=== PATIENT | male | born 1995 | race Two or more races ===

== ENCOUNTER → 2020-10-29 13:25 | Outpatient (BNVA) | payer MEDICAID, SELFPAY | PROVIDERS: PCP Family Medicine; Visit Provider Hospitalist ==

== ENCOUNTER 2020-10-29 14:07 | Outpatient (REF) | payer MEDICAID, SELFPAY ==
--- NOTE | 2020-10-29 17:09 | PFT_ITS ---
INDICATION: Dyspnea. SPIROMETRY: The FEV1 to FVC 89% with an FEV1 of 4.14 L, which is 80% predicted and an FVC of 4.67 L, which is 76% predicted. No significant response to bronchodilators noted. Maximum voluntary ventilation 92% predicted. LUNG VOLUMES: Total lung capacity 90% predicted with an expiratory reserve volume of 62% predicted. DIFFUSION CAPACITY: DLCO 85% predicted. COMPARISONS: None. INTERPRETATION: No obstructive nor restrictive ventilatory defects identified. No significant response to bronchodilators noted. Normal diffusion capacity. Clinical correlation warranted. Robin Holland MD MR/MODL / [id number]
== END 2020-10-29 14:08 | disposition home or self-care (01) ==
LOC: HO.RESP 14:07
PROVIDERS: Visit Provider Hospitalist
DX: R06.00 Dyspnea, unspecified (principal)
CPT/HCPCS: 94060; 94727; 94729; 99202

== ENCOUNTER 2020-12-02 14:23 | Outpatient (REF) | payer MEDICAID, SELFPAY ==
--- NOTE | ~2020-12-02 | XR_ITS ---
EXAMINATION: XR CHEST CLINICAL INFORMATION: Dyspnea COMPARISON: 04/10/2019 TECHNIQUE: 2 views of the chest were obtained. FINDINGS: The lungs are well expanded. There is no focal consolidation, edema, or effusion. No pneumothorax. The cardiomediastinal silhouette is within normal limits. No acute osseous abnormality. XR/XR chest 2V IMPRESSION: Clear lungs.
[2020-12-02 16:02] LABS: MANUAL DIFF FLAG NO
[2020-12-02 16:08] LABS: Basophils Absolute Auto 0.1 X10*3/uL (0.0-0.2); Basophils Percent Auto 1.1 % (0-2); Eosinophils Absolute Auto 0.2 X10*3/uL (0.0-0.4); Eosinophils Percent Auto 3.5 % (0-4); Hematocrit 43.7 % (42-52); Hemoglobin 15.3 g/dl (14.0-18.0); Imm Gran Abs Auto 0.01 X10*3/uL (0.00-0.03); Imm Gran Pct Auto 0.2 % (0.0-0.4); Lymphocytes Absolute Auto 1.8 X10*3/uL (1.2-4.9); Lymphocytes Percent Auto 27.7 % (20-40); Mean Corpuscular Hemoglobin 28.8 pg (27.0-33.0); Mean Corpuscular Volume 82.1 fL (80-98); Mean Platelet Volume 10.3 fL (9.4-12.4); Monocytes Absolute Auto 0.8 X10*3/uL (0.1-1.2); Monocytes Percent Auto 11.5 % (2-11); Neutrophils Absolute Auto 3.7 X10*3/uL (2.0-8.3); Platelet Count 282 X10*3/uL (160-400); Red Blood Count 5.32 X10*6/uL (4.60-5.80); Red Cell Distribution Width 13.5 % (11.0-16.0); White Blood Count 6.5 X10*3/uL (4.8-10.8)
[2020-12-02 16:20] LABS: D Dimer < 200 NG/ML
[2020-12-02 16:22] LABS: Anion Gap 11 (12-20); Blood Urea Nitrogen 15 mg/dL (9-16); Calcium 9.2 mg/dL (8.4-10.2); Carbon Dioxide 33 mmol/L (22-29); Chloride 97 mmol/L (96-108); Estimated Glomerular Filt Rate > 60; Glucose Random 98 mg/dL (60-115); Sodium 137 mmol/L (135-145)
[2020-12-02 17:16] LABS: Erythrocyte Sedimentation Rate 2 MM/HR (0-15)
== END 2020-12-02 14:24 | disposition home or self-care (01) ==
LOC: HO.LAB 14:23
PROVIDERS: PCP Family Medicine; Visit Provider Hospitalist
DX: J43.9 Emphysema, unspecified (principal); R00.0 Tachycardia, unspecified; K21.00 Gastro-esophageal reflux disease with esophagitis, without bleeding; F32.9 Major depressive disorder, single episode, unspecified; I27.20 Pulmonary hypertension, unspecified; Z79.899 Other long term (current) drug therapy
CPT/HCPCS: 36415; 71046; 80048; 85025; 85379; 85652; 99212

== ENCOUNTER → 2021-01-17 15:31 | Outpatient (BNVA) | payer MEDICAID, SELFPAY | PROVIDERS: PCP Family Medicine; Visit Provider Hospitalist | DX: R06.00 Dyspnea, unspecified (principal); J43.9 Emphysema, unspecified; J93.12 Secondary spontaneous pneumothorax; K21.00 Gastro-esophageal reflux disease with esophagitis, without bleeding; R00.0 Tachycardia, unspecified | CPT/HCPCS: 99212 ==

== ENCOUNTER 2021-02-17 13:08 | Outpatient (REF) | payer MEDICAID, SELFPAY ==
--- NOTE | ~2021-02-17 | CT_ITS ---
EXAMINATION: CT CHEST WITHOUT CONTRAST CLINICAL INFORMATION: Emphysema. COMPARISON: Chest x-ray 12/02/2020 TECHNIQUE: Multidetector volumetric CT imaging of the chest was done. Axial MIP volume rendering provided. Sagittal and coronal reformatted images were obtained. This CT examination was performed using dose optimization techniques as appropriate, variously including the following: *Automated exposure control *Adjustment of mA and/or kV according to patient size (this includes techniques or standardized protocols for targeted exams where dose is matched to indication/reason for exam; i.e. extremities or head) *Use of iterative reconstruction technique DLP: 168 mGy-cm FINDINGS: WEIGHT GUESSER: Hyperinflated lungs. LUNGS: There is mild centrilobular emphysema. There is no acute mass, pulmonary nodule or consolidation. There is no bronchiectasis or interstitial thickening. MEDIASTINUM: The thyroid lobes are symmetrical and normal. The central trachea and the bronchi are widely patent. PLEURA: There is no pleural effusion. No pleural mass or thickening. AXILLA: Small shotty lymph nodes seen in bilateral axilla with largest right axillary lymph node measuring 9 mm. UPPER ABDOMEN: Visualized liver, spleen, pancreas and bilateral adrenal glands are unremarkable. The gallbladder is contracted. OSSEOUS STRUCTURES: There is no lytic or sclerotic process. CT/CT chest wo con IMPRESSION: Mild centrilobular emphysema. Otherwise no acute cardiopulmonary process seen.
== END 2021-02-17 13:09 | disposition home or self-care (01) ==
LOC: HO.CT 13:08
PROVIDERS: PCP Family Medicine; Visit Provider Hospitalist
DX: J43.9 Emphysema, unspecified (principal); J93.9 Pneumothorax, unspecified; R06.00 Dyspnea, unspecified
CPT/HCPCS: 71250

== ENCOUNTER → 2021-03-07 07:14 | Outpatient (REF) | payer MEDICAID, SELFPAY ==
--- NOTE | 2021-03-07 07:20 | CA_ITS ---
Transthoracic Echocardiogram Patient (Last, First, Middle): Syed Nguyen L Gender: Male Date of : 1995 Age: 25 Procedure Date: 03/07/2021 Procedure Type: Transthoracic Echocardiogram Location: OP Height: 185.42 cm Weight: 74.84 kg BSA: 1.98 m2 Heart Rate: bpm BP: 100 / 44 mmHg Timber Hewer: Referring MD: Robin Holland MD Symptoms: PULMONARY HYPERTENSION, UNSPECIFIED Study Quality: Fair ECG Rhythm: Sinus Conclusions: - The left ventricular systolic function is normal. The calculated ejection fraction is 57% by biplane method. - No obvious valvular pathology seen on this study. - The pulmonary artery systolic pressure is normal. Findings Left Ventricle Normal left ventricular cavity size. There is normal left ventricular wall thickness. The left ventricular systolic function is normal. The calculated ejection fraction is 57% by biplane method. There is no evidence of regional wall motion abnormalities. Diastolic function is normal for age. Right Ventricle Normal right ventricular cavity size and systolic function. Atria Both atria are normal in size. Aortic Valve There is a normal trileaflet aortic valve. There is no aortic valve stenosis. There is trace (trivial) aortic valve regurgitation. Mitral Valve The mitral valve appears normal. There is no mitral valve regurgitation. There is no mitral valve stenosis. Pulmonic Valve The pulmonic valve was not well visualized. There is trace pulmonic valve regurgitation. Tricuspid Valve Normal tricuspid valve structure. There is trace tricuspid valve regurgitation. The pulmonary artery systolic pressure is normal. Great Vessels The aortic annulus, sinuses of valsalva, asc aorta, and aortic arch are normal in size. Venous The inferior vena cava is normal in size and collapses greater than 50% with inspiration. Pericardium/Pleural There is no evidence of pericardial effusion. Prior Study Comparison No prior study available for comparison. Recommendations, Care & Conclusions No obvious valvular pathology seen on this study. Measurements 2D Linear Measurements RVIDd: 2.29 RVIDd Index: 1.16 IVSd: 1.01 0.6-0.9/0.6-1.0 cm LVIDd: 4.40 3.9-5.3/4.2-5.9 cm LVIDd Index: 2.22 2.4-3.2/2.2-3.1 cm/m2 LVIDs: 2.89 2.0-3.6 cm LVPWd: 1.18 0.7-1.1 cm Ao Root: 2.80 2.1-3.5 cm LA Diam: 2.90 2.7-3.8/3.0-4.0 cm LAIDs Index: 1.46 1.5-2.3 cm/m2 LV Mass: 209.05 67-162/88-224 g LV Mass Index: 105.58 43-95/49-115 g/m2 LVOT Diam: 2.10 3.0+(-)1.3 cm 2D Systolic Function EF 4C: 51.20 >55% EF 2C: 67.70 >55% EF BiP: 57.20 >55% Mitral Valve MV Pk E: 0.51 MV PK A: 0.33 MV Decel Time: 282.00 E/A: 1.50 E'Lateral: 11.30 E'Medial: 9.46 E/E' Med: 5.40 E/E' Lat: 4.50 Aortic Valve AoV Pk Marvin: 1.22 AoV Mn Marvin: 0.95 AoV VTI: 0.24 AoV Pk Grad: 6.00 Aov Mn Grad: 4.00 DILSHAD Cont.VTI: 2.99 LVOT LVOT Pk Marvin: 0.96 LVOT Mn Marvin: 0.68 LVOT VTI: 0.21 LVOT Pk Grad: 4.00 LVOT Mn Grad: 2.00 LVOT Diam: 2.10 LVOT Area: 3.46 Diastolic Function MV Pk E: 0.51 MV Pk A: 0.33 E/A: 1.50 E'Medial: 9.46 E/E' Med: 5.40 E' Laterial: 11.30 E/E' Lat: 4.50 Tricuspid Valve TR Pk Marvin: 1.64 TR Pk Grad: 11.00 RA Press: 3.00 RVSP: 14.00 Great Vessels Aorta Ao Root-2D: 2.80 2.0-3.7 cm Ao Asc: 2.40 2.1-3.4 cm Ao Arch: 2.40 Updated in Other Vendor System with Status of Final Pineda Colindres MD electronically signed on 03/08/2021 1:47:13 PM with status of Final
== END ==
LOC: HO.CARD 07:14
PROVIDERS: Visit Provider Hospitalist
DX: I27.20 Pulmonary hypertension, unspecified (principal)
CPT/HCPCS: 93306

== ENCOUNTER → 2021-03-10 15:13 | Outpatient (BNVA) | payer MEDICAID, SELFPAY | PROVIDERS: PCP Family Medicine; Visit Provider Hospitalist | DX: J93.12 Secondary spontaneous pneumothorax (principal); K21.00 Gastro-esophageal reflux disease with esophagitis, without bleeding; R00.0 Tachycardia, unspecified; R91.1 Solitary pulmonary nodule; R06.00 Dyspnea, unspecified | CPT/HCPCS: 99212 ==

== ENCOUNTER → 2021-04-24 10:51 | Outpatient (BNVA) | payer MEDICAID, SELFPAY | PROVIDERS: PCP Family Medicine; Visit Provider Internal Medicine | DX: R06.02 Shortness of breath (principal); R07.9 Chest pain, unspecified | CPT/HCPCS: 93005; 99202 ==

== ENCOUNTER → 2021-04-30 09:30 | Outpatient (REF) | payer MEDICAID, SELFPAY ==
--- NOTE | 2021-04-30 09:34 | CA_ITS ---
Acquisition Time: 2021-04-30 09:33:40 Total Exercise Time: 00:07:14 Test Indications: CP, SOB, TACHYCARDIA Medications: SEE CHART Protocol: MARIPOSA Max HR: 181 BPM 91% of Pred: 197 BPM Max BP: 168/082 mmHG Max Work Load: 8.9 METS Exercise stress with exercise 7 min 14 sec of Mariposa protocol with 6/10 mid chest tightness at baseline which increased to 7/10 with exercise, with report that he can't get enough air in or out and request to stop exercise, without arrythmia, with normotensive response to exercise, without EKG changes meeting criteria for ischemia. At 3 min 30 sec of recovery he reported nausea, was diaphoretic and BP noted to have dropped from from 140 systolic at 1 min recovery down to 110 systolic, skin color became pale, no sudden drop in heart rate. He was placed in supine position. After several minutes his symptoms gradually improved. He was able to drink two 6 oz cups of water. BP up to 120/72. Mid chest pressure and breathing were back to baseline. After a 17 min 50 sec recovery, test was ended. He was allowed to leave cardiology in stable condition. Note: He tells me that if he pushes himself he will get similar symptoms at home. He has not had any syncopal events. Test reviewed with Dr Colindres Referred By: Pineda Colindres Overread By: PARIS DEMARCO
== END ==
LOC: HO.CARD 09:30
PROVIDERS: Visit Provider Internal Medicine
DX: R06.02 Shortness of breath (principal); R07.2 Precordial pain
CPT/HCPCS: 93017

== ENCOUNTER → 2021-05-13 14:09 | Outpatient (BNVA) | payer MEDICAID, SELFPAY | PROVIDERS: PCP Family Medicine; Referring Provider Family Medicine; Visit Provider Nurse Practitioner Family | DX: R07.9 Chest pain, unspecified (principal); R06.02 Shortness of breath; R55 Syncope and collapse | CPT/HCPCS: 99212 ==

== ENCOUNTER → 2021-06-16 15:28 | Outpatient (BNVA) | payer MEDICAID, SELFPAY | PROVIDERS: PCP Family Medicine; Visit Provider Hospitalist | DX: R06.02 Shortness of breath (principal); R07.9 Chest pain, unspecified; R55 Syncope and collapse; J93.12 Secondary spontaneous pneumothorax; J43.9 Emphysema, unspecified; R91.1 Solitary pulmonary nodule; K21.00 Gastro-esophageal reflux disease with esophagitis, without bleeding | CPT/HCPCS: 99212 ==

== ENCOUNTER → 2021-08-14 15:23 | Outpatient (BNVA) | payer MEDICAID, SELFPAY | PROVIDERS: PCP Family Medicine; Visit Provider Hospitalist | DX: R07.9 Chest pain, unspecified (principal); R06.02 Shortness of breath; Z87.09 Personal history of other diseases of the respiratory system; K21.00 Gastro-esophageal reflux disease with esophagitis, without bleeding; J43.9 Emphysema, unspecified; R91.1 Solitary pulmonary nodule | CPT/HCPCS: 99212 ==

== ENCOUNTER → 2021-12-23 15:03 | Outpatient (BNVA) | payer MEDICAID, SELFPAY | PROVIDERS: PCP Family Medicine; Visit Provider Hospitalist | DX: G47.33 Obstructive sleep apnea (adult) (pediatric) (principal); J43.9 Emphysema, unspecified; R06.02 Shortness of breath; R07.9 Chest pain, unspecified; R91.1 Solitary pulmonary nodule; K21.00 Gastro-esophageal reflux disease with esophagitis, without bleeding; Z87.09 Personal history of other diseases of the respiratory system | CPT/HCPCS: 99212 ==

== ENCOUNTER → 2021-12-31 13:03 | Outpatient (BNVA) | payer MEDICAID, SELFPAY | PROVIDERS: PCP Family Medicine; Referring Provider Family Medicine; Visit Provider Internal Medicine | DX: R06.02 Shortness of breath (principal); R07.9 Chest pain, unspecified | CPT/HCPCS: 99212 ==

== ENCOUNTER → 2022-01-15 12:53 | Outpatient (REF) | payer MEDICAID, SELFPAY | LOC: HO.SL 12:53 | PROVIDERS: PCP Family Medicine; Visit Provider Hospitalist | DX: G47.33 Obstructive sleep apnea (adult) (pediatric) (principal) | CPT/HCPCS: 95806 ==

== ENCOUNTER → 2022-03-26 15:29 | Outpatient (BNVA) | payer MEDICAID, SELFPAY | PROVIDERS: PCP Family Medicine; Visit Provider Hospitalist | DX: R07.9 Chest pain, unspecified (principal); R06.02 Shortness of breath; J93.12 Secondary spontaneous pneumothorax; K21.00 Gastro-esophageal reflux disease with esophagitis, without bleeding; J43.9 Emphysema, unspecified; R91.1 Solitary pulmonary nodule; G47.33 Obstructive sleep apnea (adult) (pediatric) | CPT/HCPCS: 99212 ==

== ENCOUNTER → 2022-04-02 15:01 | Outpatient (BNVA) | payer MEDICAID, SELFPAY | PROVIDERS: PCP Family Medicine; Visit Provider Hospitalist | DX: R06.00 Dyspnea, unspecified (principal) | CPT/HCPCS: 94010; 99211 ==

== ENCOUNTER 2022-04-21 15:10 | Outpatient (REF) | payer MEDICAID, SELFPAY ==
--- NOTE | 2022-04-21 | PFT_ITS ---
PROCEDURE: PFT and methacholine challenge test. Baseline spirometry; FVC 74%, FEV1 74%. FEV1/FVC ratio 84, [id number] 71%. All these numbers are normal except for slightly decreased volume indicating mild restrictive pulmonary disorder. The patient was given inhalations of methacholine solution in increasing concentration from 0.6 to 5 mg/mL to the last batch of 16 mg/mL. There was no significant decrease in the flow volumes. Toward the end of the test, patient did feel somewhat tight in his chest, but on listening to the chest, there were no wheezes and also the volumes were not any less than before. CONCLUSION: Negative methacholine challenge test and no significant obstructive airway disorder was noted. MD BENNY Griffin/ALONZO / [id number]
== END 2022-04-21 15:11 | disposition home or self-care (01) ==
LOC: HO.RESP 15:10
PROVIDERS: PCP Family Medicine; Visit Provider Hospitalist
DX: J45.909 Unspecified asthma, uncomplicated (principal)
CPT/HCPCS: 94070; J7674

== ENCOUNTER → 2022-05-11 15:17 | Outpatient (BNVA) | payer MEDICAID, SELFPAY | PROVIDERS: PCP Family Medicine; Visit Provider Hospitalist | DX: R06.02 Shortness of breath (principal); R07.9 Chest pain, unspecified; J93.12 Secondary spontaneous pneumothorax; K21.00 Gastro-esophageal reflux disease with esophagitis, without bleeding; J43.9 Emphysema, unspecified; R91.1 Solitary pulmonary nodule; G47.33 Obstructive sleep apnea (adult) (pediatric); G47.00 Insomnia, unspecified | CPT/HCPCS: 99212 ==

== ENCOUNTER → 2022-09-14 15:19 | Outpatient (BNVA) | payer MEDICAID, SELFPAY | PROVIDERS: PCP Family Medicine; Visit Provider Hospitalist | DX: J43.9 Emphysema, unspecified (principal); R06.02 Shortness of breath; R91.1 Solitary pulmonary nodule; J03.80 Acute tonsillitis due to other specified organisms; B96.89 Other specified bacterial agents as the cause of diseases classified elsewhere; K21.00 Gastro-esophageal reflux disease with esophagitis, without bleeding; G47.33 Obstructive sleep apnea (adult) (pediatric); G47.00 Insomnia, unspecified | CPT/HCPCS: 99212 ==

== ENCOUNTER 2022-12-17 16:03 | Outpatient (REF) | payer MEDICAID, SELFPAY ==
--- NOTE | ~2022-12-17 | XR_ITS ---
EXAMINATION: XR ankle RT min 3V, XR foot RT min 3V CLINICAL INFORMATION: Reason for Exam RT ANKLE PAIN COMPARISON: None. TECHNIQUE: AP, lateral, and oblique views of the 3 views of the right foot 3 views of the right ankle XR/XR ankle RT min 3V FINDINGS/IMPRESSION: * No acute fracture or dislocation. * Joint spaces are maintained without significant degenerative change. * No soft tissue abnormality.
--- NOTE | ~2022-12-17 | XR_ITS ---
EXAMINATION: XR ankle RT min 3V, XR foot RT min 3V CLINICAL INFORMATION: Reason for Exam RT ANKLE PAIN COMPARISON: None. TECHNIQUE: AP, lateral, and oblique views of the 3 views of the right foot 3 views of the right ankle XR/XR foot RT min 3V FINDINGS/IMPRESSION: * No acute fracture or dislocation. * Joint spaces are maintained without significant degenerative change. * No soft tissue abnormality.
== END 2022-12-17 16:04 | disposition home or self-care (01) ==
LOC: HO.XRAY 16:03
PROVIDERS: PCP Family Medicine; Visit Provider Nurse Practitioner Primary Care
DX: M25.571 Pain in right ankle and joints of right foot (principal); M79.671 Pain in right foot
CPT/HCPCS: 73610; 73630

== ENCOUNTER → 2023-01-15 14:43 | Outpatient (BNVA) | payer MEDICAID, SELFPAY | PROVIDERS: PCP Family Medicine; Visit Provider Hospitalist | DX: R06.02 Shortness of breath (principal); R91.1 Solitary pulmonary nodule; G47.33 Obstructive sleep apnea (adult) (pediatric); G47.00 Insomnia, unspecified; J43.9 Emphysema, unspecified; K21.00 Gastro-esophageal reflux disease with esophagitis, without bleeding | CPT/HCPCS: 99212 ==

== ENCOUNTER 2023-03-12 10:26 | Outpatient (REF) | payer MEDICAID, SELFPAY ==
--- NOTE | ~2023-03-12 | XR_ITS ---
EXAMINATION: XR CHEST CLINICAL INFORMATION: Chest pain x2 days. COMPARISON: 12/02/2020 TECHNIQUE: 2 views of the chest were obtained. FINDINGS: The lungs are well expanded. No focal consolidation. No pleural effusion. Cardiac silhouette is within normal limits. XR/XR chest 2V IMPRESSION: No acute abnormality.
== END 2023-03-12 10:27 | disposition home or self-care (01) ==
LOC: HO.HHCX 10:26
PROVIDERS: Visit Provider Emergency Medicine
DX: R07.9 Chest pain, unspecified (principal)
CPT/HCPCS: 71046

== ENCOUNTER 2023-07-16 14:45 | Outpatient (AMB) | payer MEDICAID, SELFPAY ==
[2023-07-16 14:49] VITALS: BP 122/78; PULSE 74; O2SAT 98; BMI 27.3
--- NOTE | 2023-07-16 14:49 | A.OFFVIS_ITS ---
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 He was treated with chest tube and did not require any surgical intervention. At the time he did follow-up with a [facility] thoracic surgery. He did have a repeat CT scan of the chest done demonstrating a small left-sided apical bleb and some area of scarring that is likely remnants from the pneumothorax. About 10 months ago the patient started developing worsening acid reflux symptoms with heartburn and shortness of breath. Major complaint of some chest discomfort over his left side. Some pleuritic component. He was evaluated from a GI standpoint was treated for acid reflux. However, his symptoms persist. Based on his previous history pneumothorax and shortness of breath he was referred to Pulmonary. Currently the patient has been feeling or uncomfortable on the left side now for about 10 months. He does not think is getting worse she is not getting any better. He denies ever using he lives in the past and denies a diagnosis of asthma. He has not had any recent imaging studies at least from chest standp oint. In the meantime we did have him undergo pulmonary function studies in our office demonstrating normal lung mechanics. Will try him on combination inhaler and will have a repeat his chest x-ray to see if there is any improvement. In the meantime we talked about the importance of the reflux diet which she will continue. 09/14/2022 The patient is here for a pulm onary follow up visit. She complains of worsening daytime drowsiness. He also has episodes where he wakes up suddenly from a deep sleep. The patient has an EPWORTH score of 12/24. He as gained weight and has large tonsils. Based on his on going symptoms I am recommending he start CPAP. He will be started on a low pressure in view of his history. Also he is complaining of a sire throat. Looks like he has significant tonsilit is/pharyngitis. Will send antibiotics to the pharmacy. 01/15/2023 the patient is here for pulmon tesha follow-up visit. The patient overall has been feeling better. He did go to the urgent care at the [facility] because he was feeling some shortness of breath. It was felt to be more anxiety. Therefore, he is going to be set up with a counselor he is going to be be looking at taking care of in diet. After discussing that with them he did mention that he has been more anxious lately in the therapy some depression and anxiety the rest in the family. At least from a pulmonary standp oint the patient is doing well. He did get his CPAP and he has been trying to use it 4-5 hours a night. He is still trying to get used to the pressures. He is wondering the pressure can be decreased. I will download the data on try to review. He has started few days ago so he is going to start getting use the pressures as time goes on. A he has not required any respiratory therapy. And at this point the patient denies any significant shortness of breath with activity which is reassuring. Therefore will see how he does with CPAP and will follow-up in 6 months or sooner if any other new issues arise. 07/16/2023 the patient is here for a pulmonary follow-up visit. The patient overall is doing well. Unfortunately he stopped using the CPAP and was taken away. He is going to try positional therapy to minimize the apneic episodes. Hopefully with positional therapy he will continue to do well. He has been working. Although he recently lost his job in looking for a new 1. his shortness of breath is overall better. Denies any significant chest pain. He has been using the inhalers with good effect. we did evaluate his last imaging studies which was an x-ray from February [address] in addition to a CT scan from 2020 without any significant findings. No additional imaging studies are warranted unless he develops any worsening or new symptoms. Will follow-up in a year's time. The patient develops any worsening symptoms he will call for an earlier assessment. [facility] Medical History (Updated 07/18/23 @ 23:13 by Robin Holland MD) Insomnia BHAVANI (obstructive sleep apnea) Pulmonary nodule Chest pain Tachycardia GERD (gastroesophageal reflux disease) Pneumothorax Lung blebs Dyspnea Surgical History (Updated 12/31/21 @ 13:09 by CARA Chaney) No pertinent past surgical history Family History (Updated 12/31/21 @ 13:09 by CARA Chaney) Father No problems noted. Mother No problems noted. Social History Alcohol intake: current Alcohol intake frequency: a few times a month Alcohol type: beer Patient Tobacco Use Status: Never used Tobacco Review of Systems Const Reports daytime sleepiness, Reports difficulty sleeping, Reports headache(s), Denies night sweats, Reports snoring and Reports stops breathing during sleep ENT Denies change in voice, Reports headache(s), Denies lip swelling, Denies mouth pain, Reports nasal congestion, Reports nasal discharge, Reports sore throat, Reports throat swelling and Denies tongue swelling Card Denies chest pain and Reports dyspnea on exertion Resp Reports dyspnea on exertion and Reports snoring GI Denies abdominal pain, Reports dyspepsia and Reports heartburn Musc Denies no additional complaints Neuro Denies Neuro-related abnormal movements and Reports headache(s) Psych Denies no additional complaints Clinton/Lymph Denies easy bleeding and Denies lymphadenopathy Aller/Immun Denies lip swelling, Reports throat swelling and Denies tongue swelling Physical Exam Vital Signs: Last Vital Signs Pulse 74 07/16/23 14:49 BP 122/78 07/16/23 14:49 Pulse Ox 98 07/16/23 14:49 Oxygen Delivery Method Room Air 07/16/23 14:49 BMI result Body Mass Index 27.3 Const General: alert HEENT Throat: Yes posterior oropharynx abnormal, Yes uvula laterally displaced and Yes uvular edema Neck Neck: Yes normal visual inspection, Yes full ROM and Yes no lymphadenopathy Chest Chest palpation & inspection: normal inspection of the chest Resp Effort & Inspection: normal respiratory effort Auscultation: diminished lung sounds Cardio Rate: regular rate and tachycardic Rhythm: regular rhythm Heart sounds: S1 normal heart sound present and S2 normal heart sound present GI Palpation (GI): Soft to palpation and nontender Auscultation: normal bowel sounds Assessment & Plan Assessment & Plan (1) Short of breath on exertion: Code(s): R06.02 - Shortness of breath (2) GERD (gastroesophageal reflux disease): Code(s): K21.9 - Gastro-esophageal reflux disease without esophagitis Qualifiers: Esophagitis bleeding: without hemorrhage Esophagitis presence: with esophagitis Qualified Code(s): K21.00 - Gastro-esophageal reflux disease with esophagitis, without bleeding (3) Lung blebs: Code(s): J43.9 - Emphysema, unspecified (4) Pulmonary nodule: Code(s): R91.1 - Solitary pulmonary nodule (5) BHAVANI (obstructive sleep apnea): Code(s): G47.33 - Obstructive sleep apnea (adult) (pediatric) (6) Insomnia: Code(s): G47.00 - Insomnia, unspecified Qualifiers: Insomnia type: primary Qualified Code(s): F51.01 - Primary insomnia Plan stopped APAP, positional therapy start WILLIAM as needed no alcohol or caffeinated products continue PPI Gabapentin for sleep follow-up in 8-12 months Medications: New albuterol sulfate 90 mcg/actuation 2 inhalations inhalation Q6H 30 days PRN 18 grams 12RF shortness of breath or wheezing J44.9 - Chronic obstructive pulmonary disease, unspecified Coding Level of Care Code Est Pt Level 4 (13666) Diagnoses Short of breath on exertion R06.02 Gastroesophageal reflux disease with esophagitis without hemorrhage K21.00 Esophagitis bleeding: without hemorrhage Esophagitis presence: with esophagitis Lung blebs J43.9 Pulmonary nodule R91.1 BHAVANI (obstructive sleep apnea) G47.33 Primary insomnia F51.01 Insomnia type: primary Time Spent (min) 16
== END 2023-07-16 15:09 | disposition home or self-care (01) ==
PROVIDERS: PCP Family Medicine; Visit Provider Hospitalist
DX: R06.02 Shortness of breath (principal); K21.00 Gastro-esophageal reflux disease with esophagitis, without bleeding; J43.9 Emphysema, unspecified; R91.1 Solitary pulmonary nodule; F01-F99 Mental, behavioral and neurodevelopmental disorders
CPT/HCPCS: 99214

== ENCOUNTER → 2023-07-16 14:45 | Outpatient (BNVA) | payer MEDICAID, SELFPAY | PROVIDERS: PCP Family Medicine; Visit Provider Hospitalist | DX: R91.1 Solitary pulmonary nodule (principal); J43.9 Emphysema, unspecified; K21.00 Gastro-esophageal reflux disease with esophagitis, without bleeding; R06.02 Shortness of breath; G47.33 Obstructive sleep apnea (adult) (pediatric); F51.01 Primary insomnia | CPT/HCPCS: 99212 ==

== ENCOUNTER 2025-03-09 08:33 | Outpatient (REF) | payer MEDICAID, SELFPAY ==
--- NOTE | ~2025-03-09 | XR_ITS ---
EXAMINATION: XR SHOULDER 2 OR MORE VIEWS RIGHT HISTORY: M25.519 - Pain in unspecified shoulder COMPARISON: There are no prior studies available for comparison. FINDINGS: Three views of the right shoulder are submitted. Osseous mineralization is normal. There is no fracture or dislocation. The glenohumeral and acromioclavicular joint spaces are preserved. The soft tissues are unremarkable. XR/XR shoulder RT min 2V IMPRESSION: Unremarkable examination of the right shoulder. Electronically signed by: Roman Arciniega MD 03/09/2025 02:13 PM EDT
--- OUTSIDE RECORDS SUMMARY | 2025-03-09 08:40 | XMS_ITS | Encounter Summary ---
Author Organization [employer] Address [address] [place] [address] [address] [place] [address] Care Team Providers Care Senior Dot Net Developer Name Role Phone Salud Tovar MD Primary Care Provider [phone] Joann Camp RN Unavailable [phone] Elyse Holland Unavailable Reason for Visit * Reason Onset Date Comments returning call 03/12/2023 Encounter Details Date Type Department Care Team (Late st Contact Info) Description 03/12/2023 Telephone [facility] [address] [place], [place] [phone] Salud Tovar MD [address] [place], [place] [phone] returning call Social History Tobacco Use Types Packs/Day Years Used Date Smoking Tobacco: Never Passive Smoke Exposure: Never Smokeless Tobacco: Never Alcohol Use Standard Drinks/Week Comments Never 0 (1 standard drink = 0.6 oz pur e alcohol) Sex and Gender Information Value Date Recorded Sex Assigned at Male 06/29/2022 10:22 AM EDT Legal Sex Male 10:22 AM EDT Gender Identity Male 06/29/2022 10:22 AM EDT Sexual Orientation Straight 06/15/2023 6: 28 AM EDT documented as of this encounter Miscellaneous Notes * Telephone Encounter - Lindsay Camp - 03/12/2023 11:35 AM EDT Tc from pt returning your request to speak with him. documented in this encounter Plan of Treatment Upcoming Encounters Date Type Department Care Team (Late st Contact Info) Description 04/02/2025 3:00 PM EDT Office Visit [facility] [address] [place] [address] Salud Tovar MD [address] [place] [phone] documented as of this encounter Visit Diagnoses Not on filedocumented in this encounter Additional Health Concerns Assessment Noted Time PHQ-9 Depression Total Score: 0 09/22/19 23 3:25 PM EST documented as of this encounter Care Teams Senior Dot Net Developer Relationship Specialty Start Date End Date Salud Tovar MD [address] [place] [address] PCP - General Family Medicine 08/30/18 Joann Camp RN [address] [place] [id number] Registered Nurse Family Medicine 02/21/25 Elyse Holland 02/21/25 documented as of this encounter
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
== END 2025-03-09 08:34 | disposition home or self-care (01) ==
LOC: HO.HOSX 08:33
PROVIDERS: Visit Provider Physician Assistant
DX: M25.519 Pain in unspecified shoulder (principal)
CPT/HCPCS: 73030; 99212

== ENCOUNTER 2025-03-09 13:36 | Outpatient (AMB) | payer MEDICAID, SELFPAY ==
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
[2025-03-09 13:59] VITALS: BMI 29.2
== END 2025-03-09 14:35 | disposition home or self-care (01) ==
LOC: HO.HOS 13:36
PROVIDERS: PCP Family Medicine; Visit Provider Physician Assistant
DX: S43.101A Unspecified dislocation of right acromioclavicular joint, initial encounter (principal)
CPT/HCPCS: 99203

== ENCOUNTER → 2025-03-09 13:41 | Outpatient (BNV) | payer MEDICAID, SELFPAY | PROVIDERS: Visit Provider Radiology Diagnostic Radiology | DX: M25.511 Pain in right shoulder (principal) | CPT/HCPCS: 73030 ==

== ENCOUNTER 2025-04-16 20:19 | Outpatient (REF) | payer MEDICAID, SELFPAY ==
--- OUTSIDE RECORDS SUMMARY | 2025-04-16 15:10 | XMS_ITS | Clinical Summary ---
Author Organization [facility] Address [address] [place] [address] Phone Care Team Providers Care French Cord Binder Name Role Phone Salud Tovar MD Primary Care Provider [phone] Allergies No known active allergies Medications No known medications Active Problems No known active problems Encounters Date Type Department Care Team Description 02/21/2025 6:11 AM EDT - 02/21/2025 9:44 AM EDT Emergency [facility] Emergency [address] [place] [address] Acute pain of right shoulder [...] Influencers of Health Screening 08/02/2022 COVID-19 Vaccine ( season) 2024 Depression Screening 08/30/2024 Influenza Vaccine (#1) 2025 5, 07/24/2013, 07/11/2012 Hepatitis B Vaccines Completed 04/08/2000, 05/02/1998, 02/26/1998 [...] Signed Date: 02/21/2025 08:09 ET Workstation ID: [id number] Transcribed By: Self Edit Transcribed Date: 02/21/2025 [...] Signed Date: 02/21/2025 08:09 ET Workstation ID: [id number] Transcribed By: Self Edit Transcribed Date: 02/21/2025 08:00 ET us Fausto CEE IMCayden CT PROCEDURES Final R esult * CT [...] Signed Date: 02/21/2025 08:09 ET Workstation ID: [id number] Transcribed By: Self Edit Transcribed Date: 02/21/2025 [...] Signed Date: 02/21/2025 08:09 ET Workstation ID: [id number] Transcribed By: Self Edit Transcribed Date: 02/21/2025 08:09 ET Fausto CEE IMG CT PROCEDURES Final R esult * XR Shoulder 2+ Views Right (02/21/2025 6:18 AM EDT) Anatomical Region Laterality Modality Upper Extremities, Shoulder Right Radi ographic Imaging 02/21/2025 8:47 AM EDT Impressions 02/21/2025 8:48 AM EDT Impression: Acromioclavicular sprain. Alejandro CEE ([id number]) -------- FINAL REPORT -------- Dictated By: Margarita Riojas Dictated Date: 02/21/2025 08:47 ET Assigned Physician: Margarita Riojas Reviewed and Electronically Signed By: Margarita Riojas Signed Date: 02/21/2025 08:48 ET Workstation ID: [id number] Transcribed By: Self Edit Transcribed Date: 02/21/2025 [...] seen. IMPRESSION: Impression: Acromioclavicular sprain. Telerad JAYE ([id number]) -------- FINAL REPORT -------- Dictated By: Margarita Riojas Dictated Date: 02/21/2025 08:47 ET Assigned Physician: Margarita Riojas Reviewed and Electronically Signed By: Margarita Riojas Signed Date: 02/21/2025 08:48 ET Workstation ID: [id number] Transcribed By: Self Edit Transcribed Date: 02/21/2025 08:47 ET Wojciech Segura MD IMG XR PROCEDURES Final Res ult * (ABNORMAL) CBC auto differential (02/21/2025 3:40 AM EDT) WBC 12.0(H) 4.8 - 10.8 K/mcL LAB HEMETOLOGY METHOD 02/21/2025 3:53 AM EDT [facility] RBC 5.30 4.50 - 5.50 M/mcL LAB HEMETOLOGY METHOD 02/21/2025 3:53 AM EDT [facility] Hemoglobin 15.0 13.5 - 17.5 g/dL [facility] Hematocrit 43.0 42.0 - 54.0 % [facility] MCV 80.5 79.0 - 98.0 FL LAB [facility] MCH 28.1 27.0 - 32.0 pcg LAB HEMETOLOGY METHOD 02/21/2025 3:53 AM [facility] MCHC 34.9 32.0 - 37.0 g/dL LAB HEMETOLOGY METHOD 02/21/2025 3:53 AM [facility] RDW 13.2 11.0 - 15.0 % LAB HEMETOLOGY METHOD 02/21/2025 3:53 AM [facility] Platelets 328 130 - 400 K/mcL LAB HEMETOLOGY METHOD 02/21/2025 3:53 AM [facility] MPV 9.5 7.0 - 11.0 FL LAB HEMETOLOGY METHOD 02/21/2025 3:53 AM [facility] NRBC 0.0 <1.0 % LAB HEMETOLOGY METHOD 02/21/2025 3:53 AM [facility] NRBC Absolute 0.00 <0.10 K/mcL LAB HEMETOLOGY METHOD 02/21/2025 3:53 AM [facility] Neutrophils Relative 79.3 % LAB HEMETOLOGY METHOD 02/21/2025 3:53 AM [facility] Lymphocytes Relative 13.6 % LAB HEMETOLOGY METHOD 02/21/2025 3:53 AM [facility] Monocytes Relative 5.6 % LAB HEMETOLOGY METHOD 02/21/2025 3:53 AM [facility] Eosinophils Relative 0.3 % LAB HEMETOLOGY METHOD 02/21/2025 3:53 AM [facility] Basophils Relative 0.8 % LAB HEMETOLOGY METHOD 02/21/2025 3:53 AM [facility] Immature Granulocytes Relative 0.4 % LAB HEMETOLOGY METHOD 02/21/2025 3:53 AM [facility] Neutrophils Absolute 9.53(H) 1.50 - 7.00 K/mcL LAB HEMETOLOGY METHOD 02/21/2025 3:53 AM EDT [facility] Lymphocytes Absolute 1.63 1.00 - 5.00 K/mcL LAB HEMETOLOGY METHOD 02/21/2025 3:53 AM EDT [facility] Monocytes Absolute 0.67 0.20 - 1.00 K/mcL LAB HEMETOLOGY METHOD 02/21/2025 3:53 AM EDT [facility] Eosinophils Absolute 0.04 0.00 - 0.50 K/[facility] LAB HEMETOLOGY METHOD 02/21/2025 3:53 AM EDT [facility] Basophils Absolute 0.10 0.00 - 0.20 K/mcL LAB HEMETOLOGY METHOD 02/21/2025 3:53 AM EDT [facility] Immature Granulocytes Absolute 0.05(H) 0.00 - 0.03 K/[facility] LAB HEMETOLOGY METHOD 02/21/2025 3:53 AM EDT [facility] Blood Venous blood specimen / Unknown Venipuncture / Unknown 02/21/2025 3:40 AM EDT 02/21/2025 3:48 AM EDT us Wojciech Segura MD LAB BLOOD ORDERABLES Final Result [facility] [address] [place] [address], * (ABNORMAL) Comprehensive metabolic panel (02/21/2025 3:40 AM EDT) Sodium 139 133 - 145 mmol/L LAB CHEMISTRY METHOD 02/21/2025 4:11 AM EDT [facility] Potassium 3.8 3.5 - 5.5 mmol/L LAB CHEMISTRY METHOD 02/21/2025 4:11 AM [facility] Chloride 104 96 - 110 mmol/L LAB CHEMISTRY METHOD 02/21/2025 4:11 AM [facility] CO2 26 21 - 32 mmol/L LAB CHEMISTRY METHOD 02/21/2025 4:11 AM [facility] Anion Gap 9 3 - 11 LAB CHEMISTRY METHOD 02/21/2025 4:11 AM [facility] Glucose 165(H) 70 - 100 mg/dL LAB CHEMISTRY METHOD 02/21/2025 4:11 AM [facility] BUN 9 5 - 25 mg/dL LAB CHEMISTRY METHOD 02/21/2025 4:11 AM [facility] Creatinine 1.04 0.70 - 1.30 mg/dL LAB CHEMISTRY METHOD 02/21/2025 4:11 AM [facility] eGFR 101 >=60 mL/min/1. 73m2 LAB CHEMISTRY METHOD 02/21/2025 4:11 AM [facility] Comment:Calculation based on the Chronic Kidney Disease Epidemiology Collaboration (CKD-EPI) equation refit without adjustment for race. BUN/Creatinine Ratio 8.7 LAB CHEMISTRY METHOD 02/21/2025 4:11 AM [facility] Calcium 9.2 8.5 - 10.5 mg/dL LAB CHEMISTRY METHOD 02/21/2025 4:11 AM [facility] AST (SGOT) 17 10 - 42 unit/L LAB CHEMISTRY METHOD 02/21/2025 4:11 AM [facility] ALT (SGPT) 30 10 - 60 unit/L LAB CHEMISTRY METHOD 02/21/2025 4:11 AM [facility] Alkaline Phosphatase 96 42 - 121 unit/L LAB CHEMISTRY METHOD 02/21/2025 4:11 AM [facility] Total Protein 7.6 6.0 - 8.0 g/dL LAB CHEMISTRY METHOD 02/21/2025 4:11 AM [facility] Albumin 3.7 3.2 - 5.0 g/dL LAB CHEMISTRY METHOD 02/21/2025 4:11 AM EDT [facility] Total Bilirubin 0.3 0.0 - 1.4 mg/dL LAB CHEMISTRY METHOD 02/21/2025 4:11 AM EDT [facility] Blood Venous blood specimen / Unknown Venipuncture / Unknown 02/21/2025 3:40 AM EDT 02/21/2025 3:48 AM EDT Wojciech Segura MD LAB BLOOD ORDERABLES Final Result [facility] [address] [place] [address], [place] [phone] * ECG 12 lead (02/21/2025 3:30 AM EDT) Ventricular Rate ECG 104 BPM GEMUSE Atrial Rate 104 BPM GEMUSE P-R Interval 184 ms GEMUSE QRS Duration 82 ms GEMUSE Q-T Interval 326 ms GEMUSE QTc 428 ms GEMUSE P Wave Orient 32 degrees GEMUSE R Orient 23 degrees GEMUSE T Orient 50 degrees GEMUSE ECG Interpretation Sinus tachycardia Otherwise normal ECG When compared with ECG of 21-MAR-2021 23:52, ST no longer depressed in Inferior leads Confirmed by DUSTY DONOHUE ([id number]) on 02/21/2025 11:28:00 AM GEMUSE 02/21/2025 3:30 AM EDT 02/21/2025 11:28 AM EDT Wojciech Segura MD ECG ORDERABLES Final Resul t GEMUSE from Last 3 Months Insurance MEDICA[place] - [place] Care Teams French Cord Binder Relationship Specialty Start Date End Date Salud Tovar MD [address] [place] [phone] PCP - General 03/27/24
--- OUTSIDE RECORDS SUMMARY | 2025-04-16 15:10 | XMS_ITS | Encounter Summary ---
Author Organization [employer] Address [address] [facility] [address] [place] [address] Care Team Providers Care Senior Bi Architect Name Role Phone Salud Tovar MD Primary Care Provider [phone] Joann Camp RN Unavailable [phone] Elyse Holland Unavailable Encounter Details Date Type Department Care Team (Late st Contact Info) Description 04/13/2025 Orders Only [facility] MEDICINE [address] [place], [place] [phone] Salud Tovar MD [address] [place], [place] [phone] Social History Tobacco Use Types Packs/Day Years Used Date Smoking Tobacco: Never Passive Smoke Exposure: Never Smokeless Tobacco: Never Alcohol Use Standard Drinks/Week Comments Yes 0 (1 standard drink = 0.6 oz pure alcohol) alcohol abuse -beers # 4-5 cans everyweekend Alcohol Answer Date Recorded How often do you have a drink containing alcohol ? 2 04/02/2025 How many drinks containing a lcohol do you have on a typical day when you are drinking? 1 04/02/2025 Frequency of Binge Drinking Not on file 11/2024 Depression Answer Date Recorded Patient Health Questionnaire-9 Score 7 04/02/2025 Patient Health Questionnaire-9 Score 7 04/02/2025 Last PHQ-9: Questionnaire Data Not on file 0 04/02/2025 Housing Stability Answer Date Recorded What is your housing situation today? I have konrad cardenas 04/02/[address] you li ve. Do you have problems with any of the following? None of the above 04/02/2025 Food Insecurity Answer Date Recorded Within the past 12 months, y ou worried that your food would run out before you got money to buy more: Never True 04/02/2025 Within the past 12 months,th e food you bought just didn't last and you didn't have enough money to get more: Never True 11/2024 Transportation Answer Date Recorded In the past 12 months, has l ack of transportation kept you from medical appts, meetings, work or from getting things needed for daily living? No 04/02/2025 Utilities Answer Date Recorded In the past 12 months, has t he electric, gas, oil or water company threatened to shut off services in your home? No 04/02/2025 Depression Answer Date Recorded Patient Health Questionnaire-2 Score 2 04/02/2025 Internet Access Answer Date Recorded Internet Access Q1 Yes 04/02/2025 Internet Access Q2 Not on file 04/02/2025 Sex and Gender Information Value Date Recorded Sex Assigned at Male 06/29/2022 10:22 AM EDT Legal Sex Male 10:22 AM EDT Gender Identity Male 06/29/2022 10:22 AM EDT Sexual Orientation Straight 06/15/2023 6: 28 AM EDT documented as of this encounter Plan of Treatment Not on file documented as of this encounter Visit Diagnoses Not on filedocumented in this encounter Additional Health Concerns Assessment Noted Time PHQ-9 Depression Total Score: 7 04/02/20 25 3:05 PM EDT documented as of this encounter Care Teams Senior Bi Architect Relationship Specialty Start Date End Date Salud Tovar MD [address] [place] [phone] PCP - General Family Medicine 08/30/18 Joann Camp RN [address] [place] [phone] Registered Nurse Family Medicine 02/21/25 Elyse Holland 02/21/25 documented as of this encounter
== END 2025-04-16 20:20 | disposition home or self-care (01) ==
LOC: HO.HOSX 20:19
PROVIDERS: Visit Provider Physician Assistant
DX: Z13.89 Encounter for screening for other disorder (principal)

== ENCOUNTER 2025-05-18 08:19 | Outpatient (REF) | payer MEDICAID, SELFPAY ==
--- NOTE | ~2025-05-18 | XR_ITS ---
EXAMINATION: XR SHOULDER, RIGHT CLINICAL INFORMATION: M25.519 - Pain in unspecified shoulder COMPARISON: None available. TECHNIQUE: Three views of the right shoulder. FINDINGS: Normal bone mineralization. No fracture, dislocation, or suspicious bone lesion. Normal alignment. The glenohumeral joint is normal. The AC joint is normal. There is a type I acromion. No undersurface spurring. The subacromial space is preserved. Remainder of the soft tissue and bony structures appear normal. XR/XR shoulder RT min 2V IMPRESSION: Normal right shoulder. Electronically signed by: Ricki Greene MD 05/18/2025 10:37 AM EDT
--- OUTSIDE RECORDS SUMMARY | 2025-05-19 08:23 | XMS_ITS ---
Author Organization [employer] Address [address] [place] [address] Care Team Providers Care Instructor Flying Name Role Phone Salud Tovar MD Primary Care Provider [phone] CM Complex Status:Closed (Closed) Start date:02/21/2025 Enrollment reason:ADT Feed End date:05/17/2025 Close reason:Cannot Reach Overview ED- Pt went to [facility] ED on 02/21/25. Continued Care and Services Coordination
--- OUTSIDE RECORDS SUMMARY | 2025-05-19 08:23 | XMS_ITS | Encounter Summary ---
Author Organization [employer] Address [address] [place] [address] Care Team Providers Care Drop Wire Stringer Name Role Phone Salud Tovar MD Primary Care Provider [phone] Joann Camp RN Unavailable [phone] Elyse Holland Unavailable Encounter Details Date Type Department Care Team (Late st Contact Info) Description 09/01/2022 Abstract [facility] MEDICINE [address] [place] [address] Salud Tovar MD [address] [place] [address] Social History Tobacco Use Types Packs/Day Years [...] on filedocumented in this encounter Care Teams Drop Wire Stringer Relationship Specialty Start Date End Date Salud Tovar MD [address] [place] [address] PCP - General Family Medicine 08/30/18 Joann Camp RN [address] [place] [address] Registered Nurse Family Medicine 02/21/25 05/17/25 Elyse Holland 02/21/25 05/17/25 documented as of this encounter
--- OUTSIDE RECORDS SUMMARY | 2025-05-19 08:23 | XMS_ITS | Encounter Summary ---
Author Organization [employer] Address [address] [facility] 7t [place] [address] Care Team Providers Care And Taxi Instructor Bus Trolley Name Role Phone Salud Tovar MD Primary Care Provider [phone] Joann Camp RN Unavailable [phone] Elyse Holland Unavailable Encounter Details Date Type Department Care Team (Late st Contact Info) Description 04/13/2025 Orders Only [facility] MEDICINE [address] [place], [place] [phone] Salud Tovar MD [address] [place], [place] [phone] Social History Tobacco Use Types Packs/Day Years [...] documented as of this encounter Care Teams And Taxi Instructor Bus Trolley Relationship Specialty Start Date End Date Salud Tovar MD [address] [place] [address] PCP - General Family Medicine 08/30/18 Joann Camp RN [address] [place] [address] Registered Nurse Family Medicine 02/21/25 05/17/25 Elyse Holland 02/21/25 05/17/25 documented as of this encounter
--- OUTSIDE RECORDS SUMMARY | 2025-05-19 08:23 | XMS_ITS | Encounter Summary ---
Author Organization [employer] Address [address] [place] [address] 7 [place] [address] Care Team Providers Care Residential Therapist Name Role Phone Salud Tovar MD Primary Care Provider [phone] Joann Camp RN Unavailable [phone] Elyse Holland Unavailable Reason for Visit * Reason Onset Date Comments Nurse Triage 02/11/2023 Encounter Details Date Type Department Care Team (Late st Contact Info) Description 02/11/2023 Telephone [facility] MEDICINE [address] [place], [place] [phone] Salud Tovar MD [address] [place], [place] [phone] Nurse Triage Social History Tobacco Use Types [...] You become worse * Telephone Encounter - Lindsay Camp - 02/11/2023 4:27 PM EDT Symptom: Medication Reaction Outcome: Schedule an urgent appointment (within 1 hour) or talk to a nurse or provider soon Reason: Caller denied all higher acuity questions The caller accepted this outcome (Belarusian speaker) documented in this encounter Plan of Treatment Not on file documented as of this encounter Visit Diagnoses Not on filedocumented in this encounter Additional Health Concerns Assessment Noted Time PHQ-9 Depression Total Score: 0 09/22/19 23 3:25 PM EST documented as of this encounter Care Teams Residential Therapist Relationship Specialty Start Date End Date Salud Tovar MD [address] [place] [address] PCP - General Family Medicine 08/30/18 Joann Camp RN [address] [place] [address] Registered Nurse Family Medicine 02/21/25 05/17/25 Elyse Holland 02/21/25 05/17/25 documented as of this encounter
--- OUTSIDE RECORDS SUMMARY | 2025-05-19 08:23 | XMS_ITS ---
Author Organization [employer] Address [address] [place] [address] Care Team Providers Care Fishing Rod Trimmer Name Role Phone Salud Tovar MD Primary Care Provider [phone] CHW Complex Status:Closed (Closed) Start date:02/21/2025 Enrollment reason:ADT Feed End date:05/17/2025 Close reason:Cannot Reach Overview ED- Pt went to [facility] ED on 02/21/25. Please outreach for enrollment. Continued Care and Services Coordination
--- OUTSIDE RECORDS SUMMARY | 2025-05-19 08:23 | XMS_ITS | Encounter Summary ---
Author Organization [employer] Address [address] [place] [address] 7 [place] [address] Care Team Providers Care Slasher Machine Operator Name Role Phone Salud Tovar MD Primary Care Provider [phone] Joann Camp RN Unavailable [phone] Elyse Holland Unavailable Reason for Visit * Reason Onset Date Comments returning call 03/12/2023 Encounter Details Date Type Department Care Team (Late st Contact Info) Description 03/12/2023 Telephone [facility] MEDICINE [address] [place], [place] [phone] Salud Tovar MD [address] [place], [place] [phone] returning call Social History Tobacco Use Types [...] documented as of this encounter Care Teams Slasher Machine Operator Relationship Specialty Start Date End Date Salud Tovar MD [address] [place] [address] PCP - General Family Medicine 08/30/18 Joann Camp, RAJESH [address] [place] [address] Registered Nurse Family Medicine 02/21/25 05/17/25 Elyse Holland 02/21/25 05/17/25 documented as of this encounter
--- OUTSIDE RECORDS SUMMARY | 2025-05-19 08:23 | XMS_ITS | Clinical Summary ---
Author Organization [facility] Address [address] [place] [address] Phone Care Team Providers Care Senior Manufacturing Test Engineer Name Role Phone Salud Tovar MD Primary Care Provider [phone] Allergies No known active allergies Medications No known medications Active Problems No known active problems Encounters Date Type Department Care Team Description 02/21/2025 6:11 AM EDT - 02/21/2025 9:44 AM EDT Emergency [facility] Emergency [address] [place] [address] Acute pain of right shoulder [...] Signed Date: 02/21/2025 08:09 ET Workstation ID: [id number] Transcribed By: Self Edit Transcribed Date: 02/21/2025 [...] Signed Date: 02/21/2025 08:09 ET Workstation ID: [id number] Transcribed By: Self Edit Transcribed Date: 02/21/2025 [...] Signed Date: 02/21/2025 08:09 ET Workstation ID: [id number] Transcribed By: Self Edit Transcribed Date: 02/21/2025 [...] Signed Date: 02/21/2025 08:09 ET Workstation ID: [id number] Transcribed By: Self Edit Transcribed Date: 02/21/2025 08:09 ET Fausto CEE IMG CT PROCEDURES Final R esult * XR Shoulder 2+ Views Right (02/21/2025 6:18 AM EDT) Anatomical Region Laterality Modality Upper Extremities, Shoulder Right Radi ographic Imaging 02/21/2025 8:47 AM EDT Impressions 02/21/2025 8:48 AM EDT Impression: Acromioclavicular sprain. Alejandro CEE ([id number]) -------- FINAL REPORT -------- Dictated By: Margarita Riojas Dictated Date: 02/21/2025 08:47 ET Assigned Physician: Margarita Riojas Reviewed and Electronically Signed By: Margarita Riojas Signed Date: 02/21/2025 08:48 ET Workstation ID: [id number] Transcribed By: Self Edit Transcribed Date: 02/21/2025 [...] seen. IMPRESSION: Impression: Acromioclavicular sprain. Telerad JAYE ([id number]) -------- FINAL REPORT -------- Dictated By: Margarita Riojas Dictated Date: 02/21/2025 08:47 ET Assigned Physician: Margarita Riojas Reviewed and Electronically Signed By: Margarita Riojas Signed Date: 02/21/2025 08:48 ET Workstation ID: [id number] Transcribed By: Self Edit Transcribed Date: 02/21/2025 08:47 ET Wojciech Segura MD IMG XR PROCEDURES Final Res ult * (ABNORMAL) CBC auto differential (02/21/2025 3:40 AM EDT) WBC 12.0(H) 4.8 - 10.8 K/mcL LAB HEMETOLOGY METHOD 02/21/2025 3:53 AM EDT [facility] RBC 5.30 4.50 - 5.50 M/mcL LAB HEMETOLOGY METHOD 02/21/2025 3:53 AM EDT [facility] Hemoglobin 15.0 13.5 - 17.5 g/dL LAB HEMETOLOGY METHOD 02/21[facility]25 [facility] Hematocrit 43.0 42.0 - 54.0 % LAB HEMETOLOGY METHOD 02/21/2025 3:53 [facility] MCV 80.5 79.0 - 98.0 FL LAB HEMETOLOGY METHOD 02/21/2025 3:53 [facility] MCH 28.1 27.0 - 32.0 pcg LAB HEMETOLOGY METHOD 02/21/2025 3:53 AM [facility] MCHC 34.9 32.0 - 37.0 g/dL LAB HEMETOLOGY METHOD 02/21/2025 3:53 AM [facility] RDW 13.2 11.0 - 15.0 % LAB HEMETOLOGY METHOD 02/21/2025 3:53 AM [facility] Platelets 328 130 - 400 K/mcL LAB HEMETOLOGY METHOD 02/21/2025 3:53 AM [facility] MPV 9.5 7.0 - 11.0 FL LAB HEMETOLOGY METHOD 02/21/2025 3:53 AM [facility] NRBC 0.0 <1.0 % LAB HEMETOLOGY METHOD 02/21/2025 3:53 AM [facility] NRBC Absolute 0.00 <0.10 K/mcL LAB HEMETOLOGY METHOD 02/21/2025 3:53 AM [facility] Neutrophils Relative 79.3 % LAB HEMETOLOGY METHOD 02/21/2025 3:53 AM [facility] Lymphocytes Relative 13.6 % LAB HEMETOLOGY METHOD 02/21/2025 3:53 AM [facility] Monocytes Relative 5.6 % LAB HEMETOLOGY METHOD 02/21/2025 3:53 AM [facility] Eosinophils Relative 0.3 % LAB HEMETOLOGY METHOD 02/21/2025 3:53 AM [facility] Basophils Relative 0.8 % LAB HEMETOLOGY METHOD 02/21/2025 3:53 AM [facility] Immature Granulocytes Relative 0.4 % LAB HEMETOLOGY METHOD 02/21/2025 3:53 AM [facility] Neutrophils Absolute 9.53(H) 1.50 - 7.00 K/mcL LAB HEMETOLOGY METHOD 02/21/2025 3:53 AM EDT [facility] Lymphocytes Absolute 1.63 1.00 - 5.00 K/mcL LAB HEMETOLOGY METHOD 02/21/2025 3:53 AM EDT [facility] Monocytes Absolute 0.67 0.20 - 1.00 K/mcL LAB HEMETOLOGY METHOD 02/21/2025 3:53 AM EDT [facility] Eosinophils Absolute 0.04 0.00 - 0.50 K/[facility] LAB HEMETOLOGY METHOD 02/21/2025 3:53 AM EDT [facility] Basophils Absolute 0.10 0.00 - 0.20 K/mcL LAB HEMETOLOGY METHOD 02/21/2025 3:53 AM EDT [facility] Immature Granulocytes Absolute 0.05(H) 0.00 - 0.03 K/[facility] LAB HEMETOLOGY METHOD 02/21/2025 3:53 AM EDT [facility] Blood Venous blood specimen / Unknown Venipuncture / Unknown 02/21/2025 3:40 AM EDT 02/21/2025 3:48 AM EDT us Wojciech Segura MD LAB BLOOD ORDERABLES Final Result [facility] [address] [place] [address], * (ABNORMAL) Comprehensive metabolic panel (02/21/2025 3:40 AM EDT) Sodium 139 133 - 145 mmol/L LAB CHEMISTRY METHOD 02/21/2025 4:11 AM EDT [facility] Potassium 3.8 3.5 - 5.5 mmol/L LAB CHEMISTRY METHOD 02/21/2025 4:11 AM [facility] Chloride 104 96 - 110 mmol/L LAB CHEMISTRY METHOD 02/21/2025 4:11 AM [facility] CO2 26 21 - 32 mmol/L LAB CHEMISTRY METHOD 02/21/2025 4:11 AM [facility] Anion Gap 9 3 - 11 LAB CHEMISTRY METHOD 02/21/2025 4:11 AM [facility] Glucose 165(H) 70 - 100 mg/dL LAB CHEMISTRY METHOD 02/21/2025 4:11 AM [facility] BUN 9 5 - 25 mg/dL LAB CHEMISTRY METHOD 02/21/2025 4:11 AM [facility] Creatinine 1.04 0.70 - 1.30 mg/dL LAB CHEMISTRY METHOD 02/21/2025 4:11 AM [facility] eGFR 101 >=60 mL/min/1. 73m2 LAB CHEMISTRY METHOD 02/21/2025 4:11 AM [facility] Comment:Calculation based on the Chronic Kidney Disease Epidemiology Collaboration (CKD-EPI) equation refit without adjustment for race. BUN/Creatinine Ratio 8.7 LAB CHEMISTRY METHOD 02/21/2025 4:11 AM [facility] Calcium 9.2 8.5 - 10.5 mg/dL LAB CHEMISTRY METHOD 02/21/2025 4:11 AM [facility] AST (SGOT) 17 10 - 42 unit/L LAB CHEMISTRY METHOD 02/21/2025 4:11 AM [facility] ALT (SGPT) 30 10 - 60 unit/L LAB CHEMISTRY METHOD 02/21/2025 4:11 AM [facility] Alkaline Phosphatase 96 42 - 121 unit/L LAB CHEMISTRY METHOD 02/21/2025 4:11 AM [facility] Total Protein 7.6 6.0 - 8.0 g/dL LAB CHEMISTRY METHOD 02/21/2025 4:11 AM [facility] Albumin 3.7 3.2 - 5.0 g/dL LAB CHEMISTRY METHOD 02/21/2025 4:11 AM EDT [facility] Total Bilirubin 0.3 0.0 - 1.4 mg/dL LAB CHEMISTRY METHOD 02/21/2025 4:11 AM EDT [facility] Blood Venous blood specimen / Unknown Venipuncture / Unknown 02/21/2025 3:40 AM EDT 02/21/2025 3:48 AM EDT Wojciech Segura MD LAB BLOOD ORDERABLES Final Result [facility] [address] [place] [address], [place] [phone] * ECG 12 lead (02/21/2025 3:30 AM EDT) Ventricular Rate ECG 104 BPM GEMUSE Atrial Rate 104 BPM GEMUSE P-R Interval 184 ms GEMUSE QRS Duration 82 ms GEMUSE Q-T Interval 326 ms GEMUSE QTc 428 ms GEMUSE P Wave [place] 32 degrees GEMUSE R [place] 23 degrees GEMUSE T [place] 50 degrees GEMUSE ECG Interpretation Sinus tachycardia Otherwise normal ECG When compared with ECG of 21-MAR-2021 23:52, ST no longer depressed in Inferior leads Confirmed by DUSTY DONOHUE ([id number]) on 02/21/2025 11:28:00 AM GEMUSE 02/21/2025 3:30 AM EDT 02/21/2025 11:28 AM EDT Wojciech Segura MD ECG ORDERABLES Final Resul t GEMUSE from Last 3 Months Insurance MEDICAID - [place] Care Teams Senior Manufacturing Test Engineer Relationship Specialty Start Date End Date Salud Tovar MD [address] [place] [phone] PCP - General 03/27/24
--- OUTSIDE RECORDS SUMMARY | 2025-05-19 08:23 | XMS_ITS | Encounter Summary ---
Author Organization [employer] Address [address] [facility] 7 [place] [address] Care Team Providers Care Professor Of Geography Name Role Phone Salud Tovar MD Primary Care Provider [phone] Joann Camp RN Unavailable [phone] Elyse Holland Unavailable Reason for Visit * Reason Comments Care Coordination CM/CHW outreach Encounter Details Date Type Department Care Team (Latest Contact Info) Description 05/17/2025 Patient Outreach [facility] MEDICINE [address] [place], [place] [phone] Salud Tovar MD [address] [place], [place] [phone] Care Coordination (CM/CHW outreach) Social History Tobacco [...] documented as of this encounter Care Teams Professor Of Geography Relationship Specialty Start Date End Date Salud Tovar MD [address] [place] [address] PCP - General Family Medicine 08/30/18 Joann Camp, RAJESH [address] [place] [address] Registered Nurse Family Medicine 02/21/25 05/17/25 Elyse Holland 02/21/25 05/17/25 documented as of this encounter
--- OUTSIDE RECORDS SUMMARY | 2025-05-19 08:24 | XMS_ITS | Encounter Summary ---
Author Organization [employer] Address [address] [place] [address] Care Team Providers Care Supervisor Cell Efficiency Name Role Phone Salud Tovar MD Primary Care Provider [phone] Joann Camp RN Unavailable [phone] Elyse Holland Unavailable Encounter Details Date Type Department Care Team (Late st Contact Info) Description 02/21/2025 Orders Only [facility] [address] [place] [address] Provider, MD [place] Social History Tobacco Use [...] t he electric, gas, oil or water [employer] threatened to shut off services in your [...] documented as of this encounter Care Teams Supervisor Cell Efficiency Relationship Specialty Start Date End Date Salud Tovar MD [address] [place] [address] PCP - General Family Medicine 08/30/18 Joann Camp RN [address] [place] [address] Registered Nurse Family Medicine 02/21/25 05/17/25 Elyse Holland 02/21/25 05/17/25 documented as of this encounter
--- OUTSIDE RECORDS SUMMARY | 2025-05-19 08:24 | XMS_ITS | Clinical Summary ---
Author Organization [employer] Address [address] [place] [address] 7 [place] [address] Care Team Providers Care [employer] Police Name Role Phone Salud Tovar MD Primary Care Provider [phone] Allergies No known active allergies Medications * [...] of injury on 02/21/2025 - Followed by [facility] orthopedics, last seen on 03/09/2025. - Currently [...] him that he will unlikely qualify for SECURITY INTELLIGENCE ANALYST His disability may be supported by other means, such as [facility] engagement, usp, and employment that will accommodate his diability [...] - Advise to continue follow up with [facility] Assessment & Plan (09/05/2023 10:11 AM EST): [...] for anxiety but patient self-discontinued. -Referred to [facility] provider for assistance in Dx and Tx [...] Self Plan Patient to reach out to 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 He denies any other substance use. Patient will benefit from Ind. Therapy, bu he declined referral and this designer/writer support at the moment. 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 Follow up with [facility] [place]: Not recommended for follow-up 2. Patient goal is become sober 3. Behavioral Recommendations a. Ptn will reach out for support once he is ready GERD (gastroesophageal reflux disease) Assessment & Plan (03/14/2024 5:42 PM EDT): - evaluated by GI - EGD in Jul 2020 at [facility]. Completely normal exam per GI - reduce alcohol intake - avoid NSAIDs - elevated head of bed, avoid laying down after meal - restart omeprazole 20 mg in the morning and famotidine 20 mg at night Assessment & Plan (09/05/2023 10:05 AM EST): - evaluated by GI - EGD in Jul 2020 at [facility]. Completely normal exam per GI - reduce alcohol intake - avoid NSAIDs - elevated head of bed, avoid laying down after meal - continue omeprazole Assessment & Plan (01/29/2023 9:44 AM EDT): - evaluated by GI - EGD in Jul 2020 at [facility]. Completely normal exam per GI - reduce alcohol intake - elevated head of bed, avoid laying down after meal - continue omeprazole BHAVANI (obstructive sleep apnea) 01/19/2023 Assessment & Plan (12/07/2023 12:00 AM EDT): -Following with fitness club manager, Dr. Holland, [facility], last seen in Jun 2023 -09/14/22 Sleep study - borderline BHAVANI -was not adherent to CPAP and returned CPAP -continue recommendation by fitness club manager; if patient wants to retry CPAP, recommended to speak with fitness club manager or CPAP supplier Assessment & Plan (09/05/2023 10:03 AM EST): -Following with fitness club manager, Dr. Holland [facility], last seen in Jun 2023 -09/14/22 Sleep study - borderline BHAVANI -was not adherent to CPAP and returned CPAP -continue recommendation by fitness club manager; if patient wants to retry CPAP, recommended to speak with fitness club manager or CPAP supplier Assessment & Plan (01/29/2023 9:27 AM EDT): -Following with fitness club manager -09/14/22 Sleep study - borderline BHAVANI -seems to be adherent to CPAP use and some improvement -cont current treatment per fitness club manager Anxiety 01/12/2023 Overview (01/19/2023): Interested in medication. [...] for anxiety but patient self-discontinued. -Referred to [facility] provider for assistance in Dx and Tx [...] for anxiety but questionable adherence -Refer to [facility] provider for assistance in Dx and Tx [...] advised to check next follow-up appointment with fitness club manager Assessment & Plan (03/14/2024 5:42 PM EDT): -Present since Pneumothorax several years ago. -EKG normal sinus rhythm. -patient was advised to check next follow-up appointment with fitness club manager Assessment & Plan (12/07/2023 12:00 AM EDT): [...] cardiology; no cardiovascular problme - following with fitness club manager for persistent symptoms, currently being treated for [...] diet and exercise,discussed healthy life style -discussed detective referral --refusing for now Assessment & Plan (09/28/2022 9:35 AM EST): - continue working on lifestyle modifications History of pneumothorax 09/01/2022 Assessment & Plan (03/14/2024 5:43 PM EDT): -Spontaneous -Right side in October 2018 -managed with thoracotomy / chest tube and hospitalization -current dyspnea and chest pain are likely sequale -following with fitness club manager -informed that we cannot predict when or whether he will have another episode, and we will not be able to arrange SECURITY INTELLIGENCE ANALYST for an uncertain event. Assessment & Plan (12/07/2023 12:01 AM EDT): -Spontaneous -Right side in October 2018 -managed with thoracotomy / chest tube and hospitalization -current dyspnea and chest pain are likely sequale -following with fitness club manager -informed that we cannot predict when or whether he will have another episode, and we will not be able to arrange SECURITY INTELLIGENCE ANALYST for an uncertain event. Assessment & Plan (09/05/2023 10:11 AM EST): -Spontaneous -Right side in October 2018 -managed with thoracotomy / chest tube and hospitalization -current dyspnea and chest pain are likely sequale -following with fitness club manager -informed that we cannot predict when or whether he will have another episode, and we will not be able to arrange SECURITY INTELLIGENCE ANALYST for an uncertain event. Assessment & Plan [...] Plan (10/03/2024 6:50 PM EST): -followed By Service Order Clerk and Cat Sitter. -Pt had normal Stress Test in 04/2021, but reported dyspnea -Normal echocardiogram in 02/2021. -Cardiopulmonary Stress test on 01/23/22. Normal. -04/02/22 PFT and methacholine challenge test - normal -Continue current treatment plan per fitness club manager Assessment & Plan (03/14/2024 5:41 PM EDT): -followed By Service Order Clerk and Cat Sitter. -Pt had normal Stress Test in 04/2021, but reported dyspnea -Normal echocardiogram in 02/2021. -Cardiopulmonary Stress test on 01/23/22. Normal. -04/02/22 PFT and methacholine challenge test - normal -Continue current treatment plan per fitness club manager Assessment & Plan (12/07/2023 12:00 AM EDT): -followed By Service Order Clerk and Cat Sitter. -Pt had normal Stress Test in 04/2021, but reported dyspnea -Normal echocardiogram in 02/2021. -Cardiopulmonary Stress test on 01/23/22. Normal. -04/02/22 PFT and methacholine challenge test - normal -Continue current treatment plan per fitness club manager Assessment & Plan (09/05/2023 10:05 AM EST): -followed By Service Order Clerk and Cat Sitter. -Pt had normal Stress Test in 04/2021, but reported dyspnea -Normal echocardiogram in 02/2021. -Cardiopulmonary Stress test on 01/23/22. Normal. -04/02/22 PFT and methacholine challenge test - normal -Continue current treatment plan per fitness club manager Assessment & Plan (06/15/2023 6:31 AM EDT): spontaneous pneumothorax s/p thoracostomy in October 2018 -per pt seen last 10/2022 --f w fitness club manager for chronic LARSEN thought secondary to episode -from records had complete workup for this -per pt should f w fitness club manager every 6 months-advised to call his fitness club manager for f up apt Assessment & Plan (09/28/2022 9:27 AM EST): -followed By Service Order Clerk and Cat Sitter. -Pt had normal Stress Test in 04/2021, but reported dyspnea -Normal echocardiogram in 02/2021. -Cardiopulmonary Stress test on 01/23/22. ?futher work-up -04/02/22 PFT and methacholine challenge test - normal -Continue current treatment plan per fitness club manager; pt is going to have another sleep study Assessment & Plan (09/01/2022 1:23 PM EST): -followed By Service Order Clerk and Cat Sitter. 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 He denies any other substance use. Patient will benefit from Ind. Therapy, bu he declined referral and this designer/writer support at the moment. 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 Follow up with [facility] [place]: Not recommended for follow-up 2. Patient goal [...] Department Care Team Description 05/17/2025 Patient Outreach [facility] [address] [place] [phone] Salud Tovar MD Care Coordination (CM/CHW outreach) 05/09/2025 Telephone [facility] [address] [place] [address] Salud Tovar MD june04/13/2025 Orders Only [facility] [address] [place] [address] Salud Tovar MD 04/13/[address] [address] Salud Tovar MD Medication Question 04/10/2025 Refill [facility] [address] [place] [address] Salud Tovar MD 04/02/2025 3:00 PM EDT Office Visit [facility] [address] [place] [address] Salud Tovar MD Elevated BP without diagnosis of hypertension (Primary Dx); Alcohol consumption binge drinking; Separation of right acromioclavicular joint, initial encounter 04/02/2025 Travel 03/30/2025 Telephone [facility] [address] [place] [address] Salud Tovar MD CHART PREP 03/12/2025 Telephone [facility] [place] [address] Salud Tovar MD Med Refill 03/01/2025 Orders Only [address] [address] Salud Tovar MD Acute pain of right shoulder (Primary Dx) 03/01/2025 Orders Only [address] [address] Salud Tovar MD Sprain of right acromioclavicular ligament, initial encounter (Primary Dx) 02/27/2025 Patient Outreach [address] [address] Salud Tovar MD Care Management ([facility]- initial assessment/ enrollment. Patient not available.) 02/26/[address] [address] Salud Tovar MD 02/22/[address] [address] Salud Tovar MD Appointment Request; Referral; ER Follow-up 02/22/[address] [address] Salud Tovar MD Referral 02/22/2025 Patient Outreach [address] [address] Salud Tovar MD Care Coordination (Appt request) 02/21/2025 Patient Outreach [address] [address] Salud Tovar MD 02/21/2025 Orders Only [facility] [address] [place] [address] Sanford Lee MD 02/21/2025 Patient Outreach [address] [address] Salud Tovar MD Care Coordination (CM/CHW outreach) 02/21/2025 Patient Outreach [address] [address] Salud Tovar MD Care Coordination (CHW Chart Review) 02/21/2025 Patient Outreach [facility] [address] [place] [address] Salud Tovar MD Care Management ([facility]- chart review) 02/21/2025 Patient Outreach [facility] [address] [place] [address] Salud Tovar MD from Last 3 Months [...] HEPATITIS C ANTIBODY NON-REACT CLAUDINE NON-REACT CLAUDINE [facility] INDEX 0.01 <1.00 [facility] Comment: HCV antibody was non-reactive. There is no laboratory evidence of HCV infection. In most cases, no further action is required. However, if recent HCV exposure is suspected, a test for HCV RNA (test code 61999) is suggested. For additional information please refer to http://education.[employer]/faq/YWH49b1 (This link is being provided for informational/ educational purposes only.) HEPATITIS C ANTIBODY NON-REACT CLAUDINE NON-REACT CLAUDINE [facility] INDEX 0.01 <1.00 [facility] Comment: HCV antibody was non-reactive. There is no laboratory evidence of HCV infection. In most cases, no further action is required. However, if recent HCV exposure is suspected, a test for HCV RNA (test code 85210) is suggested. For additional information please refer to http://[employer]/faq/ZMB43d8 (This link is being provided for informational/ educational purposes only.) HEPATITIS C ANTIBODY NON-REACT CLAUDINE NON-REACT CLAUDINE [facility] INDEX 0.01 <1.00 [facility] Comment: HCV antibody was non-reactive. There is no laboratory evidence of HCV infection. In most cases, no further action is required. However, if recent HCV exposure is suspected, a test for HCV RNA (test code 90718) is suggested. For additional information please refer to http://[employer]/faq/BJQ18f2 (This link is being provided for informational/ educational purposes only.) 03/18/2020 4:05 PM EDT us Salud Tovar MD HISTORICAL/NON ORDERABLE LABS Fi nal Result [facility] [address] * HIV 1/2 ANTIGEN/ANTIBODY,FOURTH GENERATION W/RFL (03/18/2020 4:05 PM EDT) HIV-1/2 ANTIGEN AND ANTIBODIES, 4TH GENERATION W/ REFLEX NON-REACT CLAUDINE NON-REACT CLAUDINE [facility] Comment: HIV-1 antigen and HIV-1/HIV-2 [...] purpose. For additional information please refer to http://[employer]/faq/DTV886 (This link is being provided for informational/ [...] purpose. For additional information please refer to http://[employer]/faq/XCQ929 (This link is being provided for informational/ [...] purpose. For additional information please refer to http://[employer]ogy/faq/PPM198 (This link is being provided for informational/ educational purposes only.) The performance of this assay has not been clinically validated in patients less than 2 years old. 03/18/2020 4:05 PM EDT us Salud Tovar MD LAB BLOOD ORDERABLES Final Resul t [facility] [address] from Last 3 Months or Most Recently Relevant to Health Maintenance Insurance [facility] C3 Care Teams [employer] Relationship Specialty Start Date End Date Salud Tovar MD [address] [place] [address] PCP - General Family Medicine 08/30/18
--- OUTSIDE RECORDS SUMMARY | 2025-05-19 08:24 | XMS_ITS | Encounter Summary ---
Author Organization [employer] Address [address] [facility] 7 [place] [address] Care Team Providers Care Process Eng Name Role Phone Salud Tovar MD Primary Care Provider [phone] Joann Camp RN Unavailable [phone] Elyse Holland Unavailable Encounter Details Date Type Department Care Team (Late st Contact Info) Description 02/26/2025 Telephone [facility] [address] [place], [place] [phone] Salud Tovar MD [address] [place], [place] [phone] Social History Tobacco Use Types Packs/Day Years [...] cata get a call from managed care liaison team today at 1pm documented in this encounter Plan of Treatment Not on file documented as of this encounter Visit Diagnoses Not on filedocumented in this encounter Additional Health Concerns Assessment Noted Time PHQ-9 Depression Total Score: 9 10/03/19 25 1:51 PM EST documented as of this encounter Care Teams Process Eng Relationship Specialty Start Date End Date Salud Tovar MD [address] [place] [address] PCP - General Family Medicine 08/30/18 Joann Camp RN [address] [place] [address] Registered Nurse Family Medicine 02/21/25 05/17/25 Elyse Holland 02/21/25 05/17/25 documented as of this encounter
--- OUTSIDE RECORDS SUMMARY | 2025-05-19 08:24 | XMS_ITS | Encounter Summary ---
Author Organization [employer] Address [address] [place] [address] 7 [place] [address] Care Team Providers Care Short Story Writer Name Role Phone Salud Tovar MD Primary Care Provider [phone] Joann Camp RN Unavailable [phone] Elyse Holland Unavailable Reason for Referral * Consultation (Urgent) - Closed Specialty Diagnoses / Procedures Referred By Tdod cortez Referred To Contact Orthopaedic Surgery Diagnoses Sprain of right acromioclavicular ligament, initial encounter Salud Tovar MD [address] [place] [address] Phone: tel: fax: [facility] Orthopedics [address] [place] [address] Phone: tel:[phone] Referral ID Status Reason Start Date Expiration Date V isits Requested Visits Authorized [id number] Closed Specialty Services Required 03/01/2025 03/01/2026 1 1 Encounter Details Date Type Department Care Team (Latest Contact Info) Description 03/01/2025 Orders Only [facility] [address] [place] [address] [phone] Salud Tovar MD [address] [place] [address] Sprain of right acromioclavicular ligament, initial encounter [...] documented as of this encounter Care Teams Short Story Writer Relationship Specialty Start Date End Date Salud Tovar MD [address] [place] [address] PCP - General Family Medicine 08/30/18 Joann Camp RN [address] [place] [address] Registered Nurse Family Medicine 02/21/25 05/17/25 Elyse Holland 02/21/25 05/17/25 documented as of this encounter
--- OUTSIDE RECORDS SUMMARY | 2025-05-19 08:24 | XMS_ITS | Encounter Summary ---
Author Organization [employer] Address [address] [place] [address] [place] [address] Care Team Providers Care Pullman Conductor Name Role Phone Salud Tovar MD Primary Care Provider Joann Camp RN Unavailable [phone] Elyse Holland Unavailable Reason for Referral * Consultation (Urgent) - Closed Specialty Diagnoses / Procedures Referred By Todd cortez Referred To Contact Physical Therapy Diagnoses Acute pain of right shoulder Salud Tovar MD [address] [place] [address] Phone: tel: fax: [facility] [address] [place] [address] Phone: tel: fax: Referral ID Status Reason Start Date Expiration Date V isits Requested Visits Authorized [id number] Closed Specialty Services Required 03/01/2025 03/01/2026 1 1 Encounter Details Date Type Department Care Team (Late st Contact Info) Description 03/01/2025 Orders Only [facility] [address] [place] [address] Salud Tovar MD [address] [place] [phone] Acute pain of right shoulder (Primary Dx) [...] documented as of this encounter Care Teams Pullman Conductor Relationship Specialty Start Date End Date Salud Tovar MD [address] [place] [address] PCP - General Family Medicine 08/30/18 Joann Camp RN [address] [place] [address] Registered Nurse Family Medicine 02/21/25 05/17/25 Elyse Holland 02/21/25 05/17/25 documented as of this encounter
--- OUTSIDE RECORDS SUMMARY | 2025-05-19 08:24 | XMS_ITS | Encounter Summary ---
Author Organization [employer] Address [address] [place] [address] 7 [place] [address] Care Team Providers Care Suction Plate Carrier Cleaner Name Role Phone Salud Tovar MD Primary Care Provider [phone] Joann Camp RN Unavailable [phone] Elyse Holland Unavailable Reason for Visit * Reason Onset Date Comments Appointment Request 06/19/2024 Encounter Details Date Type Department Care Team (Late st Contact Info) Description 06/19/2024 Telephone [facility] [address] [place], [place] [phone] Salud Tovar MD [address] [place], [place] [phone] Appointment Request Social History Tobacco Use Types [...] from patients father calling to cancel appt flex o writer operator did attempt to reschedule however no availability documented in this encounter Plan of Treatment Not on file documented as of this encounter Visit Diagnoses Not on filedocumented in this encounter Additional Health Concerns Assessment Noted Time PHQ-9 Depression Total Score: 12 024 2:09 PM EDT documented as of this encounter Care Teams Suction Plate Carrier Cleaner Relationship Specialty Start Date End Date Salud Tovar MD [address] [place] [address] PCP - General Family Medicine 08/30/18 Joann Camp RN [address] [place] [address] [place] [address] Registered Nurse Family Medicine 02/21/25 05/17/25 Elyse Holland 02/21/25 05/17/25 documented as of this encounter
== END 2025-05-18 08:20 | disposition home or self-care (01) ==
LOC: HO.HOSX 08:19
PROVIDERS: Visit Provider Physician Assistant
DX: S43.101D Unspecified dislocation of right acromioclavicular joint, subsequent encounter (principal); X58.XXXD Exposure to other specified factors, subsequent encounter
CPT/HCPCS: 73030; 99212

== ENCOUNTER 2025-05-18 10:25 | Outpatient (AMB) | payer MEDICAID, SELFPAY ==
--- NOTE | 2025-05-18 10:35 | A.OFFVIS_ITS ---
Intake Visit Reasons: OV - right shoulder AC joint separation Intake Note: Syed is a 29 year old male who presents today as a new patient for right shoulder AC joint separation, DOI 02/20/25. At his last visit he was referred to physical therapy to work on range of motion and gotten a script for naproxen. Patient states that he is doing better. He mentions that he is going to physical therapy in [facility] he will provide the name after the visit. He mentions that he has a couple sessions left. Allergies No Known Allergies (No Known Allergies*) Allergy (Verified 05/18/25 10:54) HPI HPI OV - right shoulder AC joint separation: Details: Mr. Nguyen is a 29-year-old male who presents to the office today for evaluation of a right shoulder AC joint separation. Date of injury was 02/20/2025. At his last visit he was referred to physical therapy in which he has been attending and making great progress. Occasionally he reports some tenderness with overhead reaching or heavy lifting. Essentially he has 2 more visits of physical therapy left but has a home exercise program that he has been working on. [facility] Medical History (Updated 03/09/25 @ 14:20 by Alecia Huber PA-C) Insomnia BHAVANI (obstructive sleep apnea) Pulmonary nodule Chest pain Tachycardia GERD (gastroesophageal reflux disease) Pneumothorax Lung blebs Dyspnea Surgical History (Updated 12/31/21 @ 13:09 by CARA Chaney) No pertinent past surgical history Family History (Updated 12/31/21 @ 13:09 by CARA Chaney) Father No problems noted. Mother No problems noted. 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 Review of Systems Const All systems reviewed & are unremarkable except as noted in HPI and below Physical Exam Const General: cooperative, healthy appearing and no acute distress Resp Effort & Inspection: normal respiratory effort and able to speak in complete sentences Extrem Other: Right shoulder slight deformity over the distal end of the clavicle at the AC joint. Full shoulder range of motion in all planes. Sensation is intact. NVI. Assessment & Plan Assessment & Plan (1) Acromioclavicular joint separation, type 1: Code(s): S43.109A - Unspecified dislocation of unspecified acromioclavicular joint, initial encounter Category: Medical Plan Mr. Nguyen is a 29-year-old male who presents to the office today for evaluation of a right shoulder AC joint separation. Date of injury was 02/20/2025. At his last visit he was referred to physical therapy in which he has been attending and making great progress. Occasionally he reports some tenderness with overhead reaching or heavy lifting. Essentially he has 2 more visits of physical therapy left but has a home exercise program that he has been working on. While in the office today, I have encouraged the patient to continue home exercise program for the right shoulder AC joint separation. No surgical intervention warranted at this time. He will resume back to normal activities as tolerated using pain as his guide. I did instruct the patient that he might have some continued soreness with overhead motion. He will follow up PRN, sooner if needed. X-rays of the right shoulder which were obtained while in the office today and were reviewed by me, Alecia Huber PA-C, revealed AC joint separation. Orders: Orders XR shoulder RT min 2V Today M25.519 - Pain in unspecified shoulder Coding Level of Care Code Est Pt Level 3 (17569) Diagnoses Acromioclavicular joint separation, type 1 S43.109A
--- OUTSIDE RECORDS SUMMARY | 2025-05-18 11:00 | XMS_ITS | Encounter Summary ---
Author Organization [employer] Address [address] [place] [address] 7 [place] [address] Care Team Providers Care Technical Support Manager Name Role Phone Salud Tovar MD Primary Care Provider [phone] Joann Camp RN Unavailable [phone] Elyse Holland Unavailable Reason for Visit * Reason Onset Date Comments Nurse Triage 02/11/2023 Encounter Details Date Type Department Care Team (Late st Contact Info) Description 02/11/2023 Telephone [facility] MEDICINE [address] [place], [place] [phone] Salud Tovar MD [address] [place], [place] [phone] Nurse Triage Social History Tobacco Use Types Packs/Day Years [...] Orientation Straight 06/15/2023 6: 28 AM EDT COVID-19 Exposure Response Date Recorded In the last 10 days, have yo u been in contact with someone who was confirmed or suspected to have Coronavirus/COVID-19? No / Unsure 02/09/2023 12:39 PM EDT documented as of this encounter Miscellaneous Notes * Telephone Encounter - Amrita Horton RN - 02/11/2023 4:41 PM EDT Triage call Pt reports started taking sertraline 25mg 01/19. Pt reports BP is much higher . Normal BP is 120s /80s , checking BP lately shows BP is 132-140s/ 80s-90s. Pt is asymptomatic for this BP but, is asking to get this information to PCP as to whether should keep taking this med or if a different med could be prescribed. Protocol Used: Medication Question Call (Adult) Protocol-Based Disposition: Callback or Video Visit by PCP Today Override (Final) Disposition: See in Office or Video Visit Today or Tomorrow Override Reason: Other Video visit not offered Positive Triage Question: * Caller has NON-URGENT medicine question about med that PCP or specialist prescribed and triager unable to answer question * All higher-acuity triage questions were negative Care Advice Discussed: * Reasons To Call Back - You have any more questions - You become worse * Telephone Encounter - iLndsay Camp - 02/11/2023 4:27 PM EDT Symptom: Medication Reaction Outcome: Schedule an urgent appointment (within 1 hour) or talk to a nurse or provider soon Reason: Caller denied all higher acuity questions The caller accepted this outcome (Mohawk speaker) documented in this encounter Plan of Treatment Not on file documented as of this encounter Visit Diagnoses Not on filedocumented in this encounter Additional Health Concerns Assessment Noted Time PHQ-9 Depression Total Score: 0 09/22/19 23 3:25 PM EST documented as of this encounter Care Teams Technical Support Manager Relationship Specialty Start Date End Date Salud Tovar MD [address] [place] [address] PCP - General Family Medicine 08/30/18 Joann Camp RN [address] [place] [phone] Registered Nurse Family Medicine 02/21/25 05/17/25 Elyse Holland 02/21/25 05/17/25 documented as of this encounter
--- OUTSIDE RECORDS SUMMARY | 2025-05-18 11:00 | XMS_ITS | Encounter Summary ---
Author Organization [employer] Address [address] [place] [address] 7 [place] [address] Care Team Providers Care Charge Machine Operator Name Role Phone Salud Tovar MD Primary Care Provider [phone] Joann Camp RN Unavailable [phone] Elyse Holland Unavailable Reason for Visit * Reason Onset Date Comments returning call 03/12/2023 Encounter Details Date Type Department Care Team (Late st Contact Info) Description 03/12/2023 Telephone [facility] MEDICINE [address] [place], [place] [phone] Salud Tovar MD [address] [place], [place] [phone] returning call Social History Tobacco Use Types [...] documented as of this encounter Care Teams Charge Machine Operator Relationship Specialty Start Date End Date Salud Tovar MD [address] [place] [address] PCP - General Family Medicine 08/30/18 Joann Camp, RAJESH [address] [place] [address] Registered Nurse Family Medicine 02/21/25 05/17/25 Elyse Holland 02/21/25 05/17/25 documented as of this encounter
--- OUTSIDE RECORDS SUMMARY | 2025-05-18 11:00 | XMS_ITS | Encounter Summary ---
Author Organization [employer] Address [address] [facility] 7t [place] [address] Care Team Providers Care Student Financial Services Counselor Name Role Phone Salud Tovar MD Primary Care Provider [phone] Joann Camp RN Unavailable [phone] Elyse Holland Unavailable Encounter Details Date Type Department Care Team (Late st Contact Info) Description 04/13/2025 Orders Only [facility] MEDICINE [address] [place], [place] [phone] Salud Tovar MD [address] [place], [place] [phone] Social History Tobacco Use Types Packs/Day Years [...] documented as of this encounter Care Teams Student Financial Services Counselor Relationship Specialty Start Date End Date Salud Tovar MD [address] [place] [phone] PCP - General Family Medicine 08/30/18 Joann Camp RN [address] [place] [phone] Registered Nurse Family Medicine 02/21/25 05/17/25 Elyse Holland 02/21/25 05/17/25 documented as of this encounter
--- OUTSIDE RECORDS SUMMARY | 2025-05-18 11:00 | XMS_ITS | Encounter Summary ---
Author Organization [employer] Address [address] [facility] 7 [place] [address] Care Team Providers Care Digital Engineer Name Role Phone Salud Tovar MD Primary Care Provider [phone] Joann Camp RN Unavailable [phone] Elyse Holland Unavailable Reason for Visit * Reason Comments Care Coordination CM/CHW outreach Encounter Details Date Type Department Care Team (Latest Contact Info) Description 05/17/2025 Patient Outreach [facility] MEDICINE [address] [place], [place] [phone] Salud Tovar MD [address] [place], [place] [phone] Care Coordination (CM/CHW outreach) Social History Tobacco Use Types Packs/Day Years [...] your housing situation today? I have konrad sing 04/02/[address] you li [...] AM EDT documented as of this encounter Progress Notes * Elyse Holland - 05/17/2025 12:44 PM EDT CHW Elyse Holland placed outbound call to patient to introduce complex care program. Number is disconnected and was unable to LVM. and address not verified. Will close case. documented in this encounter Plan of Treatment Not on file documented as of this encounter Visit Diagnoses Not on filedocumented in this encounter Additional Health Concerns Assessment Noted Time PHQ-9 Depression Total Score: 7 04/02/20 25 3:05 PM EDT documented as of this encounter Care Teams Digital Engineer Relationship Specialty Start Date End Date Salud Tovar MD [address] [place] [address] PCP - General Family Medicine 08/30/18 Joann Camp, RAJESH [address] [place] [phone] Registered Nurse Family Medicine 02/21/25 05/17/25 Elyse Holland 02/21/25 05/17/25 documented as of this encounter
--- OUTSIDE RECORDS SUMMARY | 2025-05-18 11:01 | XMS_ITS | Encounter Summary ---
Author Organization [email or web address] Address [address] [place] [address] [address] [address] Care Team Providers Care Mechanical Project Manager Name Role Phone Salud Tovar MD Primary Care Provider [phone] Joann Camp RN Unavailable [phone] Elyse Holland Unavailable Reason for Referral * Consultation (Urgent) - Closed Specialty Diagnoses / Procedures Referred By Todd cortez Referred To Contact Physical Therapy Diagnoses Acute pain of right shoulder Salud Tovar MD [address] [place] [phone] Phone: tel: fax: [facility] [address] [place] [address] Phone: tel: fax: Referral ID Status Reason Start Date Expiration Date V isits Requested Visits Authorized [id number] Closed Specialty Services Required 03/01/2025 03/01/2026 1 1 Encounter Details Date Type Department Care Team (Late st Contact Info) Description 03/01/2025 Orders Only [facility] [address] [place] [id number] Salud Tovar MD [address] [place] [address] [phone] Acute pain of right shoulder (Primary Dx) Social History Tobacco Use Types Packs/Day Years Used Date Smoking Tobacco: Never Passive Smoke Exposure: Never Smokeless Tobacco: Never Alcohol Use Standard Drinks/Week Comments Yes 0 (1 standard drink = 0.6 oz pure alcohol) alcohol abuse -beers # 4-5 cans everyweekend Alcohol Answer Date Recorded How often do you have a drink containing alcohol ? 3 10/06/2023 How many drinks containing a lcohol do you have on a typical day when you are drinking? 3 10/06/2023 How often do you have six or more drinks on one occasion? 3 10/06/2023 Depression Answer Date Recorded Patient Health Questionnaire-9 Score 9 10/03/2024 Patient Health Questionnaire-9 Score 9 10/03/2024 Last PHQ-9: Questionnaire Data Not on file 0 10/03/2024 Housing Stability Answer Date Recorded What is your housing situation today? I have konrad cardenas 11/25/[address] you li ve. Do you have problems with any of the following? Pests such as bugs, ants, or mice 11/25/2023 Food Insecurity Answer Date Recorded Within the past 12 months, y ou worried that your food would run out before you got money to buy more: Often true 11/25/2023 Within the past 12 months,th e food you bought just didn't last and you didn't have enough money to get more: Often true Transportation Answer Date Recorded In the past 12 months, has l ack of transportation kept you from medical appts, meetings, work or from getting things needed for daily living? No 11/25/2023 Utilities Answer Date Recorded In the past 12 months, has t he electric, gas, oil or water company threatened to shut off services in your home? No 06/14/2023 Depression Answer Date Recorded Patient Health Questionnaire-2 Score 3 10/03/2024 Sex and Gender Information Value Date Recorded Sex Assigned at Male 06/29/2022 10:22 AM EDT Legal Sex Male 10:22 AM EDT Gender Identity Male 06/29/2022 10:22 AM EDT Sexual Orientation Straight 06/15/2023 6: 28 AM EDT documented as of this encounter Plan of Treatment Not on file documented as of this encounter Procedures Procedure Name Priority Date/Time Associated Diagnosis Comments AMB REFERRAL TO PHYSICAL THERAPY Urgent 04/13/2025 Acute pain of right shoulder documented in this encounter Results * Referral to Physical Therapy (04/13/2025) Salud Tovar MD OUTPATIENT REFERRAL ORDERABLES F inal Result documented in this encounter Visit Diagnoses Diagnosis Acute pain of right shoulder- Primary documented in this encounter Additional Health Concerns Assessment Noted Time PHQ-9 Depression Total Score: 9 10/03/19 25 1:51 PM EST documented as of this encounter Care Teams Mechanical Project Manager Relationship Specialty Start Date End Date Salud Tovar MD [address] [place] [address] PCP - General Family Medicine 08/30/18 Joann Camp RN [address] [place] [phone] Registered Nurse Family Medicine 02/21/25 05/17/25 Elyse Holland 02/21/25 05/17/25 documented as of this encounter
--- OUTSIDE RECORDS SUMMARY | 2025-05-18 11:01 | XMS_ITS | Encounter Summary ---
Author Organization [employer] Address [address] [facility] [address] [place] [address] Care Team Providers Care Devulcanizer Charger Name Role Phone Salud Tovar MD Primary Care Provider [phone] Joann Camp RN Unavailable [phone] Elyse Holland Unavailable Encounter Details Date Type Department Care Team (Late st Contact Info) Description 02/26/2025 Telephone [facility] [address] [place], [place] [phone] Salud Tovar MD [address] [place], [place] [phone] Social History Tobacco Use Types Packs/Day Years [...] encounter Miscellaneous Notes * Telephone Encounter - Prince Herrera - 02/26/2025 3:22 PM EDT Pt father called in , reports was supposed cata get a call from managed care nurse team today at 1pm documented in this encounter Plan of Treatment Not on file documented as of this encounter Visit Diagnoses Not on filedocumented in this encounter Additional Health Concerns Assessment Noted Time PHQ-9 Depression Total Score: 9 10/03/19 25 1:51 PM EST documented as of this encounter Care Teams Devulcanizer Charger Relationship Specialty Start Date End Date Salud Tovar MD [address] [place] [address] PCP - General Family Medicine 08/30/18 Joann Camp RN [address] [place] [phone] Registered Nurse Family Medicine 02/21/25 05/17/25 Elyse Holland 02/21/25 05/17/25 documented as of this encounter
--- OUTSIDE RECORDS SUMMARY | 2025-05-18 11:01 | XMS_ITS | Clinical Summary ---
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 ibuprofen 600 MG tabletIndicatio ns:Acute right ankle pain,Moderate right ankle sprain, initial encounter Take 1 tablet every 8 hours with food for 1 week, then as needed for pain 40 tablet 12/15/2022 Active Blood Pressure Monitor kit Use to check blood pressure reading daily and when symptomatic. Please bring home readings to follow up appointments. 1 kit 02/02/2023 Active omeprazole (PriLOSEC) [address] capsule Take 1 capsule by mouth Once per day. 06/02/2024 Active omeprazole (PriLOSEC) [address] capsule Take 1 capsule (20 mg) by mouth before breakfast. Do not crush or chew. 90 capsule 3 04/10/2025 04/10/20 26 Active hydrOXYzine HCl (Atarax) 25 MG tablet Take 1-2 tablets by mouth every 8 hours as needed for anxiety 30 tablet 04/13/2025 Active Active Problems Problem Noted Date Diagnosed Date Separation of right acromioclavicular joint 01/2025 Assessment & Plan (04/04/2025 10:23 AM EDT): - Date of injury on 02/21/2025 - Followed by [facility] orthopedics, last seen on 03/09/2025. - Currently receiving physical therapy Vitamin D deficiency 10/03/2024 Assessment & Plan (10/03/2024 6:53 PM EST): - Ordered Vitamin D, 25-Hydroxy, Total, Immunoassay Elevated BP without diagnosis of hypertension Assessment & Plan (04/04/2025 10:21 AM EDT): -Goal BP < 130/80 per ACC/AHA guideline (Treatment threshold >=140/90) -BP not at goal -Continue working on lifestyle modifications -Recommended self-monitoring BP. - Reduce sodium intake and alcohol intake Assessment & Plan (10/03/2024 6:54 PM EST): - Ordered TSH with Reflex to Free T4 - Ordered Comprehensive Metabolic Panel - Ordered Albumin, Random Urine W/Creatinine Acute sinusitis 10/03/2024 Overview (10/03/2024): Presumptive sinusitis. Prescribed doxycycline 100 mg twice daily. Advised to contact us if there's no improvement or symptoms worsen. Learning disability 09/05/2023 Assessment & Plan (09/05/2023 10:09 AM EST): Explained him that he will unlikely qualify for UND[employer]WRITING INTERN His disability may be supported by other means, such as [facility] engagement, fci, and employment that will accommodate his diability Attention deficit disorder (ADD) in adult 2023 Assessment & Plan (10/10/2024 10:59 AM EST): - Patient has tried counseling, but did not want a long-term - Discussed about starting medication, yet patient declined Assessment & Plan (03/14/2024 5:47 PM EDT): - Patient will start counseling tomorrow - Discussed about starting medication - Will check with patient after counseling Assessment & Plan (12/07/2023 12:01 AM EDT): - Advise to continue follow up with [facility] Assessment & Plan (09/05/2023 10:11 AM EST): - refer iBH Moderate episode of recurrent major depressive d isorder 03/26/2023 Assessment & Plan (10/10/2024 10:59 AM EST): - patient most likely has ADHD, anxiety, and depression GAD7 score 9, PHQ 9 score 12 on 03/14/24 no SI GAD7 score 10, PHQ9 score 9 on 10/03/24 -Prescribed Sertraline 25 mg daily, but patient self-discontinued -Prescribed Hydroxyzine 25mg q8h prn for anxiety but patient self-discontinued. -Referred to [facility] provider for assistance in Dx and Tx recommendation, patient had a few appointment with counselor. He decided not to engage in counseling. -His anxiety and depression may be due to ADHD or patient may have all the diagnoses. -Discussed about treatment for ADHD; patient declined Assessment & Plan (03/14/2024 5:46 PM EDT): - patient most likely has ADHD, anxiety, and depression - we agreed to start treatment for ADHD with medication - patient will have counseling for anxiety and depression Assessment & Plan (10/06/2023 1:28 PM EST): PROGRESS NOTE: ID: Syed is a 27 y.o. straight-identified cis-male (pronouns he/him/his) with previous documented hx of Depression, Anxiety, and Alcohol Use Disorder No previous hx of MH services who presents for Depression and Anxiety. Ptn found with heart issues but has not received a dx yet, and this is a stressor for him. During IBH Consult Syed presenting with depressed mood, loss of interests/pleasure , changes in sleep difficulty falling asleep and difficulty staying asleep , change in appetite or weight overeating, trouble concentrating, fatigue/loss of energy, excessive worry/anxiety, difficulty controlling worry, restless/keyed up/On edge, easily fatigued, difficulty concentrating/Mind going blank , irritability, muscle tension, and sleep disturbance difficulty falling asleep and difficulty staying asleep , and unsuccessful attempt/s to cut down/stop use, cravings and urges to use, continued use, even when it causes interpersonal problems, continued use even when hazardous or dangerous , continued use despite physical or psychological problem (potentially related or made worse by use) , tolerance , withdrawal sxs , in regard to Alcohol; for a period of 18+ mo, for all symptoms in the context of concern about heart issues unresolved, unable to practice physical activities. PLAN: New/Additional Services needed Off-site services for Behavioral Health Integration Plan External OP therapy referral Patient Self Plan Patient to reach out to [facility] team as needed, Patient to engage in OP therapy , and Patient to reach out to [facility] as needed Assessment & Plan (03/26/2023 4:00 PM EDT): Assessment and Plan: Syed was engaged with active reflective listening and open-ended questions. Assessed symptoms, risks, and social supports with direct questions. Discussed current symptoms intensity and frequency. Emotions were normalized and validated. He identified working as coping mechanisms and his parents as protective factors. Offered to provided psychoeducation around coping skills to manage depression, he declined. Discussed OP therapy, he reported was not interested at this time. He just want his alcohol treatment. Provided education around integrated medicine and the options of follow up BE's as needed. Provided contact information should questions or concerns arise. Plan: Syed will continue to engage in effective coping mechanisms that has worked for him in the past. He will keep his appts and he will informed provider if he feels like talking with me after the appt. Patient with persistent use despite awareness, cravings, failed attempt to cut back, drinking more than intended, lack of motivation, feeling depressed, sleep disturbance, little energy at times, poor appetite, low self-esteem, persistent worry, feeling anxious. He denies SI, HI, AVH or self-harm. 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 He denies any other substance use. Patient will benefit from Ind. Therapy, bu he declined referral and this publicity writer support at the moment. 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 Follow up with [facility]: Not recommended for follow-up 2. Patient goal is become sober 3. Behavioral Recommendations a. Ptn will reach out for support once he is ready GERD (gastroesophageal reflux disease) Assessment & Plan (03/14/2024 5:42 PM EDT): - evaluated by GI - EGD in Jul 2020 at [facility]. Completely normal exam per GI - reduce alcohol intake - avoid NSAIDs - elevated head of bed, avoid laying down after meal - restart omeprazole 20 mg in the morning and famotidine 20 mg at night Assessment & Plan (09/05/2023 10:05 AM EST): - evaluated by GI - EGD in Jul 2020 at [facility]. Completely normal exam per GI - reduce alcohol intake - avoid NSAIDs - elevated head of bed, avoid laying down after meal - continue omeprazole Assessment & Plan (01/29/2023 9:44 AM EDT): - evaluated by GI - EGD in Jul 2020 at [facility]. Completely normal exam per GI - reduce alcohol intake - elevated head of bed, avoid laying down after meal - continue omeprazole BHAVANI (obstructive sleep apnea) 01/19/2023 Assessment & Plan (12/07/2023 12:00 AM EDT): -Following with hockey scout, Dr. Holland, [facility], last seen in Jun 2023 -09/14/22 Sleep study - borderline BHAVANI -was not adherent to CPAP and returned CPAP -continue recommendation by hockey scout; if patient wants to retry CPAP, recommended to speak with hockey scout or CPAP supplier Assessment & Plan (09/05/2023 10:03 AM EST): -Following with hockey scout, Dr. Holland [facility], last seen in Jun 2023 -09/14/22 Sleep study - borderline BHAVANI -was not adherent to CPAP and returned CPAP -continue recommendation by hockey scout; if patient wants to retry CPAP, recommended to speak with hockey scout or CPAP supplier Assessment & Plan (01/29/2023 9:27 AM EDT): -Following with hockey scout -09/14/22 Sleep study - borderline BHAVANI -seems to be adherent to CPAP use and some improvement -cont current treatment per hockey scout Anxiety 01/12/2023 Overview (01/19/2023): Interested in medication. Hesitant to start BHS / Counseling. -Start Sertraline 25 mg daily. -Add Hydroxyzine 25mg q8h prn for anxiety -will contact us there is side-effects or ineffective after 3-weeks Assessment & Plan (10/10/2024 10:57 AM EST): GAD7 score 9, PHQ 9 score 12 on 03/14/24 no SI GAD7 score 10, PHQ9 score 9 on 10/03/24 -Prescribed Sertraline 25 mg daily, but patient self-discontinued -Prescribed Hydroxyzine 25mg q8h prn for anxiety but patient self-discontinued. -Referred to [facility] provider for assistance in Dx and Tx recommendation, patient had a few appointment with counselor. He decided not to engage in counseling. -His anxiety and depression may be due to ADHD or patient may have all the diagnoses. -Discussed about treatment for ADHD; patient declined Assessment & Plan (03/16/2024 6:08 AM EDT): GAD7 score 9, PHQ 9 score 12 today, 03/14/24 no SI -Prescribed Sertraline 25 mg daily, but questionable adherence -Prescribed Hydroxyzine 25mg q8h prn for anxiety but questionable adherence -Referred to S provider for assistance in Dx and Tx recommendation, patient has appointment with counselor tomorrow -His anxiety and depression may be due to ADHD or patient may have all the diagnoses. -Will discuss with treatment for ADHD before anxiety and depression pharmacological treatment Assessment & Plan (09/05/2023 10:13 AM EST): ANNABELLA 12, PHQ 9 is 5 no SI in May 2023 -Prescribed Sertraline 25 mg daily, but questionable adherence -Prescribed Hydroxyzine 25mg q8h prn for anxiety but questionable adherence -Refer to [facility] provider for assistance in Dx and Tx recommendation Assessment & Plan (06/15/2023 6:34 AM EDT): ANNABELLA 12, PHQ 9 is 5 no SI -refuse BH offered today -to f w PCP in next 4 to 6 weeks ,may need to consider medication Assessment & Plan (01/12/2023 6:02 PM EDT): Seen by [facility]. -Relaxation techniques discussed. -Not interested in medication or therapy at this time but is open to possivbility his symptoms are caused from anxiety. Post-traumatic stress disorder, unspecified 12/28 Assessment & Plan (09/05/2023 10:06 AM EST): - Hx pneumothorax - Recommended to resume BHS Alcohol consumption binge drinking 01/12/2023 Overview (01/12/2023): He is in the contemplating stages of cutting down. He is aware of our AUD clinic and knows how to contact us if he would like to go. He declines today. Assessment & Plan (04/04/2025 10:21 AM EDT): - continue reducing alcohol intake Assessment & Plan (10/10/2024 10:58 AM EST): - continue reducing alcohol intake Assessment & Plan (03/14/2024 5:47 PM EDT): - recommended to resume AUD clinic Assessment & Plan (09/05/2023 10:14 AM EST): - recommended to resume AUD clinic Assessment & Plan (06/15/2023 6:32 AM EDT): -beers # 4-5 cans every weekend, hx of hardl liquor -voqka before but stopped -not using naltrexone for the last 1 month -reports some SE -advised to try to resume med if not relevant SI and to avoid /decrease consumption of ETOH -advise to continue w alcohol abuse program ----has apt 08/09/2023 Assessment & Plan (01/12/2023 6:05 PM EDT): He is in the contemplating stages of cutting down. He is aware of our AUD clinic and knows how to contact us if he would like to go. He declines today. Chest discomfort 01/12/2023 Overview (01/12/2023): Present since Pneumothorax several years ago. EKG not done due machine not working, but shows normal sinus rhythm. Assessment & Plan (10/03/2024 6:50 PM EST): -Present since Pneumothorax several years ago. -EKG normal sinus rhythm. -patient was advised to check next follow-up appointment with hockey scout Assessment & Plan (03/14/2024 5:42 PM EDT): -Present since Pneumothorax several years ago. -EKG normal sinus rhythm. -patient was advised to check next follow-up appointment with hockey scout Assessment & Plan (12/07/2023 12:00 AM EDT): Present since Pneumothorax several years ago. EKG normal sinus rhythm. Assessment & Plan (09/05/2023 10:03 AM EST): Present since Pneumothorax several years ago. EKG normal sinus rhythm. Assessment & Plan (01/29/2023 9:40 AM EDT): - since pt had a spontaneous pneumothorax and thoracostomy in October 2018 - evaluated by thoracic surgeon for persistent chest pain / discomfort. No surgical issue - evaluated by cardiology; no cardiovascular problme - following with hockey scout for persistent symptoms, currently being treated for BHAVANI - PFT 04/21/22, including methacholine challenge test. No obstructive airway disease - Most recent CXR 12/02/20 normal; CT on 02/17/21 mild centorilobular emphaesma - normal Stress-Test in 04/2021, but reported dyspnea. - Normal echocardiogram in 02/2021. - Normal Cardiopulmonary Stress test on 01/23/22. - likely multifactorial at this time, mainly GERD and anxiety - optimize Tx for GERD and anxiety Assessment & Plan (01/12/2023 6:06 PM EDT): Present since Pneumothorax several years ago. EKG not done due machine not working, but shows normal sinus rhythm. Overweight 09/28/2022 Assessment & Plan (09/05/2023 10:06 AM EST): -Advised pt to improve diet and exercise, discussed healthy lifestyle -Advised to reschedule appointment with Dr. Almanzar for AUD clinic Assessment & Plan (06/15/2023 6:31 AM EDT): -Advised pt to improve diet and exercise,discussed healthy life style -discussed lacrosse player referral --refusing for now Assessment & Plan (09/28/2022 9:35 AM EST): - continue working on lifestyle modifications History of pneumothorax 09/01/2022 Assessment & Plan (03/14/2024 5:43 PM EDT): -Spontaneous -Right side in October 2018 -managed with thoracotomy / chest tube and hospitalization -current dyspnea and chest pain are likely sequale -following with hockey scout -informed that we cannot predict when or whether he will have another episode, and we will not be able to arrange [employer]WR[employer]ING INTERN for an uncertain event. Assessment & Plan (12/07/2023 12:01 AM EDT): -Spontaneous -Right side in October 2018 -managed with thoracotomy / chest tube and hospitalization -current dyspnea and chest pain are likely sequale -following with hockey scout -informed that we cannot predict when or whether he will have another episode, and we will not be able to arrange UNDERWRITING INTERN for an uncertain event. Assessment & Plan (09/05/2023 10:11 AM EST): -Spontaneous -Right side in October 2018 -managed with thoracotomy / chest tube and hospitalization -current dyspnea and chest pain are likely sequale -following with hockey scout -informed that we cannot predict when or whether he will have another episode, and we will not be able to arrange UNDERWRITING INTERN for an uncertain event. Assessment & Plan (09/28/2022 9:28 AM EST): -Spontaneous -Right side in October 2018 -managed with thoracotomy / chest tube and hospitalization -current dyspnea and chest pain are likely sequale Assessment & Plan (09/01/2022 1:25 PM EST): -Spontaneous -Right side in October 2018 -managed with thoracotomy / chest tube and hospitalization -current dyspnea and chest pain are likely sequale Dyspnea 09/01/2022 Assessment & Plan (10/03/2024 6:50 PM EST): -followed By Assembly Line Leader and Glass Bead Maker. -Pt had normal Stress Test in 04/2021, but reported dyspnea -Normal echocardiogram in 02/2021. -Cardiopulmonary Stress test on 01/23/22. Normal. -04/02/22 PFT and methacholine challenge test - normal -Continue current treatment plan per hockey scout Assessment & Plan (03/14/2024 5:41 PM EDT): -followed By Assembly Line Leader and Glass Bead Maker. -Pt had normal Stress Test in 04/2021, but reported dyspnea -Normal echocardiogram in 02/2021. -Cardiopulmonary Stress test on 01/23/22. Normal. -04/02/22 PFT and methacholine challenge test - normal -Continue current treatment plan per hockey scout Assessment & Plan (12/07/2023 12:00 AM EDT): -followed By Assembly Line Leader and Glass Bead Maker. -Pt had normal Stress Test in 04/2021, but reported dyspnea -Normal echocardiogram in 02/2021. -Cardiopulmonary Stress test on 01/23/22. Normal. -04/02/22 PFT and methacholine challenge test - normal -Continue current treatment plan per hockey scout Assessment & Plan (09/05/2023 10:05 AM EST): -followed By Assembly Line Leader and Glass Bead Maker. -Pt had normal Stress Test in 04/2021, but reported dyspnea -Normal echocardiogram in 02/2021. -Cardiopulmonary Stress test on 01/23/22. Normal. -04/02/22 PFT and methacholine challenge test - normal -Continue current treatment plan per hockey scout Assessment & Plan (06/15/2023 6:31 AM EDT): spontaneous pneumothorax s/p thoracostomy in October 2018 -per pt seen last 10/2022 --f w hockey scout for chronic LARSEN thought secondary to episode -from records had complete workup for this -per pt should f w hockey scout every 6 months-advised to call his hockey scout for f up apt Assessment & Plan (09/28/2022 9:27 AM EST): -followed By Assembly Line Leader and Glass Bead Maker. -Pt had normal Stress Test in 04/2021, but reported dyspnea -Normal echocardiogram in 02/2021. -Cardiopulmonary Stress test on 01/23/22. ?futher work-up -04/02/22 PFT and methacholine challenge test - normal -Continue current treatment plan per hockey scout; pt is going to have another sleep study Assessment & Plan (09/01/2022 1:23 PM EST): -followed By Assembly Line Leader and Glass Bead Maker. -Pt had normal Stress Test in 04/2021, but reported dyspnea -Normal echocardiogram in 02/2021. -Cardiopulmonary Stress test on 01/23/22. ?futher work-up -04/02/22 PFT and methacholine challenge test - normal Moderate alcohol use disorder 09/01/2022 Assessment & Plan (10/03/2024 6:50 PM EST): He is in the contemplating stages Recommended to resume AUD clinic Assessment & Plan (12/07/2023 12:01 AM EDT): He is in the contemplating stages Recommended to resume AUD clinic Assessment & Plan (09/05/2023 10:08 AM EST): He is in the contemplating stages Recommended to resume AUD clinic Assessment & Plan (03/26/2023 4:00 PM EDT): Assessment and Plan: Syed was engaged with active reflective listening and open-ended questions. Assessed symptoms, risks, and social supports with direct questions. Discussed current symptoms intensity and frequency. Emotions were normalized and validated. He identified working as coping mechanisms and his parents as protective factors. Offered to provided psychoeducation around coping skills to manage depression, he declined. Discussed OP therapy, he reported was not interested at this time. He just want his alcohol treatment. Provided education around integrated medicine and the options of follow up BE's as needed. Provided contact information should questions or concerns arise. Plan: Syed will continue to engage in effective coping mechanisms that has worked for him in the past. He will keep his appts and he will informed provider if he feels like talking with me after the appt. Patient with persistent use despite awareness, cravings, failed attempt to cut back, drinking more than intended, lack of motivation, feeling depressed, sleep disturbance, little energy at times, poor appetite, low self-esteem, persistent worry, feeling anxious. He denies SI, HI, AVH or self-harm. 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 He denies any other substance use. Patient will benefit from Ind. Therapy, bu he declined referral and this publicity writer support at the moment. 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 Follow up with [facility]: Not recommended for follow-up 2. Patient goal is become sober 3. Behavioral Recommendations a. Ptn will reach out for support once he is ready Assessment & Plan (01/29/2023 9:45 AM EDT): He is in the contemplating stages of cutting down. He is aware of our AUD clinic and knows how to contact us if he would like to go. He declines today. Assessment & Plan (09/28/2022 9:28 AM EST): - continue reducing alcohol intake Subluxation of patellofemoral joint 09/19/2015 Allergic rhinitis 10/12/2012 Hypertrophy of tonsils 10/12/2012 Assessment & Plan (06/15/2023 6:32 AM EDT): -referred to ENT today for evaluation ,denies to have symptoms Resolved Problems Problem Noted Date Diagnosed Date Resolved Date Screening for diabetes mellitus 10/03/2024 10/10/2024 Assessment & Plan (10/03/2024 6:52 PM EST): - Ordered Hemoglobin A1c Screening for lipid disorders 10/03/2024 10/10/2024 Assessment & Plan (10/03/2024 6:53 PM EST): - Ordered Lipid Panel with Reflex to Direct LDL Encounters Date Type Department Care Team Description 05/17/2025 Patient Outreach [facility] [address] [place] [id number] Salud Tovar MD Care Coordination (CM/CHW outreach) 05/09/2025 Telephone [facility] [address] [place] [phone] Salud Tovar MD june04/13/2025 Orders Only [facility] [address] [place] [phone] Salud Tovar MD 04/13/[address] [phone] Salud Tovar MD Medication Question 04/10/2025 Refill [facility] [address] [place] [address] Salud Tovar MD 04/02/2025 3:00 PM EDT Office Visit [facility] [address] [place] [phone] Salud Tovar MD Elevated BP without diagnosis of hypertension (Primary Dx); Alcohol consumption binge drinking; Separation of right acromioclavicular joint, initial encounter 04/02/2025 Travel 03/30/2025 Telephone [facility] [address] [place] [phone] Salud Tovar MD CHART PREP 03/12/2025 Telephone [facility] [place] [address] Salud Tovar MD Med Refill 03/01/2025 Orders Only [address] [phone] Salud Tovar MD Acute pain of right shoulder (Primary Dx) 03/01/2025 Orders Only [address] [phone] Salud Tovar MD Sprain of right acromioclavicular ligament, initial encounter (Primary Dx) 02/27/2025 Patient Outreach [address] [address] Salud Tovar MD Care Management ([id number] initial assessment/ enrollment. Patient not available.) 02/26/[address] [address] Salud Tovar MD 02/22/[address] [address] Salud Tovar MD Appointment Request; Referral; ER Follow-up 02/22/[address] [address] Salud Tovar MD Referral 02/22/2025 Patient Outreach [address] [address] Salud Tovar MD Care Coordination (Appt request) 02/21/2025 Patient Outreach [address] [address] Salud Tovar MD 02/21/2025 Orders Only [facility] [address] [place] [address] Sanford Lee MD 02/21/2025 Patient Outreach [address] [address] Salud Tovar MD Care Coordination (CM/CHW outreach) 02/21/2025 Patient Outreach [address] [phone] Salud Tovar MD Care Coordination (CHW Chart Review) 02/21/2025 Patient Outreach [facility] [address] [place] [address] Salud Tovar MD Care Management ([facility]- chart review) 02/21/2025 Patient Outreach [facility] [address] [place] [address] Salud Tovar MD from Last 3 Months Immunizations Immunization Administration Dates Next Due DTaP 04/04/2003, 0,05/02/1998,02/16 HPV, Quadrivalent 09/04/2014,07/24/2013,08/24/20 12 Hep A, ped/adol, 2 dose 07/24/2013,08/24/2012 Hep B, Adolescent or Pediatric 04/08/2000,1997,02/26/1998 IPV 01/02/2002, 0,05/02/1998,02/26 Influenza, Split (incl. mark fied surface antigen) 07/24/2013,07/11/2012 Influenza, injectable, quadr ivalent, preservative free, pediatric 09/04/2014 MMR 01/02/2002,04/08/2000 Meningococcal MCV4P [id number] 09/04/2014,07/11/20 12 Tdap 07/11/2012 Varicella 07/11/2012,04/08/2000 Family History Medical History Relation Name Comments DM2 Father's Brother cousin- lung ca Other Relation Name Status Comments Father's Brother Other Social History Tobacco Use Types Packs/Day Years Used Date Smoking Tobacco: Never Passive Smoke Exposure: Never Smokeless Tobacco: Never Tobacco Cessation:Counseling Given: Not Answered Alcohol Use Standard Drinks/Week Comments Yes 0 [...] Orientation Straight 06/15/2023 6: 28 AM EDT Last Filed Vital Signs Vital Sign Reading Time Taken Comments Blood Pressure 140/90 04/02/2025 3:04 PM EDT Pulse 98 04/02/2025 3:04 PM EDT Temperature 36.1 C (96.9 F) 04/02/2025 3:04 PM EDT Respiratory Rate 22 04/02/2025 3:04 PM EDT Oxygen Saturation 97% 04/02/2025 3:04 PM EDT Inhaled Oxygen Concentration - - Weight 99.2 kg (218 lb 12.8 oz) 04/02/2025 3:04 PM EDT Height 182.9 cm (6') 04/02/2025 3:04 PM EDT Body Mass Index 29.67 04/02/2025 3:04 PM EDT Plan of Treatment Health Maintenance Due Date Last Done Comments Family Planning (PISQ) 2012 Pneumococcal Vaccine: Pediatrics (0 to 5 Years) and At-Risk Patients (6 to 49) Years (1 of 2 - PCV) 2016 DTaP/Tdap/Td Vaccines (6 - Td or Tdap) 07/11/2022 07/11/2012, 04/04/2003, 04/08/2000, Additional history exists COVID-19 Vaccine ( - season) 2025 Influenza Vaccine (#1) 2025 5, 07/24/2013, 07/11/2012 Alcohol/Substance Use Screening 04/02/2026 04/02/2025 Depression Screening 04/02/2026 04/02/2025, 04/02/20 Disability Screening 04/02/2026 04/02/2025 SDOH Screening 04/02/2026 04/02/2025 Tobacco Screening 04/02/2026 04/02/2025 Zoster Vaccines (1 of 2) 12/23/2047 RSV Patients and Patients Aged 60 years or older (1 - 1-dose 75+ series) 2072 Hepatitis B Vaccines Completed 04/08/2000, 05/02/1998, 02/26/1998 IPV Vaccines Completed 01/02/2002, 03/30, 05/02/1998, Additional history exists Hepatitis A Vaccines Completed 07/24/2013, 08/24/20 12 HPV Vaccines Completed 09/04/2014, 07/01, 08/24/2012 Meningococcal Vaccine Completed 09/04/2014, 012 HIV Screening Completed 03/18/2020 Hepatitis C Screening Completed 03/18/2020 HIB Vaccines Aged Out No longer eligi ble based on patient's age to complete this topic Meningococcal B Vaccine Aged Out No l onger eligible based on patient's age to complete this topic RSV under 20 months Aged Out No longe r eligible based on patient's age to complete this topic Rotavirus Vaccines Aged Out No longer eligible based on patient's age to complete this topic Procedures Procedure Name Priority Date/Time Associated Diagnosis Comments AMB REFERRAL TO PHYSICAL THERAPY Urgent 04/13/2025 Acute pain of right shoulder CT CERVICAL SPINE WO CONTRAST Routine 02/21/2025 10:[address] HEAD WO CONTRAST Routine 02/21/2025 1 0:45 AM EDT ZZZ HISTORICAL HEPATITIS C AB W/REFL TO HCV RNA, QN, PCR Routine 03/18/2020 4:05 PM EDT HIV 1/2 ANTIGEN/ANTIBODY, FOURTH GENERATION W/RFL Routine 03/18/2020 4:05 PM EDT from Last 3 Months or Most Recently Relevant to Health Maintenance Results * Referral to Physical Therapy (04/13/2025) Salud Tovar MD OUTPATIENT REFERRAL ORDERABLES F inal Result * CT Cervical Spine w/o Contrast (02/21/2025 10:50 AM EDT) Anatomical Region Laterality Modality Spine, C-spine Computed Tomogra phy Historical Provider IMG CT PROCEDURES Final R esult * CT Head w/o Contrast (02/21/2025 10:45 AM EDT) Anatomical Region Laterality Modality Head, Neck Computed Tomogra phy Historical Provider IMG CT PROCEDURES Final R esult * HEPATITIS C AB W/REFL TO HCV RNA, QN, PCR (03/18/2020 4:05 PM EDT) HEPATITIS C ANTIBODY NON-REACT CLAUDINE NON-REACT CLAUDINE [facility] INDEX 0.01 <1.00 [facility] Comment: HCV antibody was non-reactive. There is no laboratory evidence of HCV infection. In most cases, no further action is required. However, if recent HCV exposure is suspected, a test for HCV RNA (test code 96955) is suggested. For additional information please refer to http://education.Kast/faq/KZS66j9 (This link is being provided for informational/ educational purposes only.) HEPATITIS C ANTIBODY NON-REACT CLAUDINE NON-REACT CLAUDINE [facility] INDEX 0.01 <1.00 [facility] Comment: HCV antibody was non-reactive. There is no laboratory evidence of HCV infection. In most cases, no further action is required. However, if recent HCV exposure is suspected, a test for HCV RNA (test code 36588) is suggested. For additional information please refer to http://[employer].Kast/faq/ZYL52k4 (This link is being provided for informational/ educational purposes only.) HEPATITIS C ANTIBODY NON-REACT CLAUDINE NON-REACT CLAUDINE [facility] INDEX 0.01 <1.00 [facility] Comment: HCV antibody was non-reactive. There is no laboratory evidence of HCV infection. In most cases, no further action is required. However, if recent HCV exposure is suspected, a test for HCV RNA (test code 28177) is suggested. For additional information please refer to http://[employer]faq/XAJ23q5 (This link is being provided for informational/ educational purposes only.) 03/18/2020 4:05 PM EDT us Salud Tovar MD HISTORICAL/NON ORDERABLE LABS Fi nal Result [facility] [address] * HIV 1/2 ANTIGEN/ANTIBODY,FOURTH GENERATION W/RFL (03/18/2020 4:05 PM EDT) HIV-1/2 ANTIGEN AND ANTIBODIES, 4TH GENERATION W/ REFLEX NON-REACT CLAUDINE NON-REACT CLAUDINE [facility] Comment: HIV-1 antigen and HIV-1/HIV-2 antibodies were not detected. There is no laboratory evidence of HIV infection. PLEASE NOTE: This information has been disclosed to you from records whose confidentiality may be protected by state law. If your state requires such protection, then the state law prohibits you from making any further disclosure of the information without the specific written consent of the person to whom it pertains, or as otherwise permitted by law. A general authorization for the release of medical or other information is NOT sufficient for this purpose. For additional information please refer to http://[employer].Kast/faq/WJB506 (This link is being provided for informational/ educational purposes only.) The performance of this assay has not been clinically validated in patients less than 2 years old. HIV-1/2 ANTIGEN AND ANTIBODIES, 4TH GENERATION W/ REFLEX NON-REACT CLAUDINE NON-REACT [facility] Comment: HIV-1 antigen and HIV-1/HIV-2 antibodies were not detected. There is no laboratory evidence of HIV infection. PLEASE NOTE: This information has been disclosed to you from records whose confidentiality may be protected by state law. If your state requires such protection, then the state law prohibits you from making any further disclosure of the information without the specific written consent of the person to whom it pertains, or as otherwise permitted by law. A general authorization for the release of medical or other information is NOT sufficient for this purpose. For additional information please refer to http://[employer].Kast/faq/XJI464 (This link is being provided for informational/ educational purposes only.) The performance of this assay has not been clinically validated in patients less than 2 years old. HIV-1/2 ANTIGEN AND ANTIBODIES, 4TH GENERATION W/ REFLEX NON-REACT CLAUDINE NON-REACT [facility] Comment: HIV-1 antigen and HIV-1/HIV-2 antibodies were not detected. There is no laboratory evidence of HIV infection. PLEASE NOTE: This information has been disclosed to you from records whose confidentiality may be protected by state law. If your state requires such protection, then the state law prohibits you from making any further disclosure of the information without the specific written consent of the person to whom it pertains, or as otherwise permitted by law. A general authorization for the release of medical or other information is NOT sufficient for this purpose. For additional information please refer to http://[employer]os[employer]ite/faq/EBC409 (This link is being provided for informational/ educational purposes only.) The performance of this assay has not been clinically validated in patients less than 2 years old. 03/18/2020 4:05 PM EDT us Salud Tovar MD LAB BLOOD ORDERABLES Final Resul t [facility] [address] from Last 3 Months or Most Recently Relevant to Health Maintenance Insurance [facility] C3 Care Teams Vertical Contour Band Saw Operator Relationship Specialty Start Date End Date Salud Tovar MD [address] [place] [phone] PCP - General Family Medicine 08/30/18
--- OUTSIDE RECORDS SUMMARY | 2025-05-18 11:01 | XMS_ITS | Encounter Summary ---
Author Organization [employer] Address [address] [place] [address] 7 [place] [address] Care Team Providers Care Inventory Control Assistant Name Role Phone Salud Tovar MD Primary Care Provider [phone] Joann Camp RN Unavailable [phone] Elyse Holland Unavailable Reason for Visit * Reason Onset Date Comments Appointment Request 06/19/2024 Encounter Details Date Type Department Care Team (Late st Contact Info) Description 06/19/2024 Telephone [facility] [address] [place], [place] [phone] Salud Tovar MD [address] [place], [place] [phone] Appointment Request Social History Tobacco Use Types Packs/Day Years [...] Answer Date Recorded Patient Health Questionnaire-9 Score 12 03/14/2024 Patient Health Questionnaire-9 Score 12 03/14/2024 Last PHQ-9: Questionnaire Data Not on file 0 03/14/2024 Housing Stability Answer Date Recorded What is [...] Answer Date Recorded Patient Health Questionnaire-2 Score 1 03/14/2024 Sex and Gender Information Value Date Recorded Sex Assigned at Male 06/29/2022 10:22 AM EDT Legal Sex Male 10:22 AM EDT Gender Identity Male 06/29/2022 10:22 AM EDT Sexual Orientation Straight 06/15/2023 6: 28 AM EDT documented as of this encounter Miscellaneous Notes * Telephone Encounter - Elvin Salas - 06/19/2024 1:19 PM EDT Tc from patients father calling to cancel appt racebook writer did attempt to reschedule however no availability documented in this encounter Plan of Treatment Not on file documented as of this encounter Visit Diagnoses Not on filedocumented in this encounter Additional Health Concerns Assessment Noted Time PHQ-9 Depression Total Score: 12 024 2:09 PM EDT documented as of this encounter Care Teams Inventory Control Assistant Relationship Specialty Start Date End Date Salud Tovar MD [address] [place] [address] PCP - General Family Medicine 08/30/18 Joann Camp RN [address] [place] [address] [place] [address] Registered Nurse Family Medicine 02/21/25 05/17/25 Elyse Holland 02/21/25 05/17/25 documented as of this encounter
--- OUTSIDE RECORDS SUMMARY | 2025-05-18 11:01 | XMS_ITS ---
Author Organization [employer] Address [address] [place] [address] Care Team Providers Care Core Shaper Sides Name Role Phone Salud Tovar MD Primary Care Provider [phone] CHW Complex Status:Closed (Closed) Start date:02/21/2025 Enrollment reason:ADT Feed End date:05/17/2025 Close reason:Cannot Reach Overview ED- Pt went to [facility] ED on 02/21/25. Please outreach for enrollment. Continued Care and Services Coordination
--- OUTSIDE RECORDS SUMMARY | 2025-05-18 11:01 | XMS_ITS ---
Author Organization [employer] Address [address] [place] [address] Care Team Providers Care Teen Counselor Name Role Phone Salud Tovar MD Primary Care Provider [phone] CM Complex Status:Closed (Closed) Start date:02/21/2025 Enrollment reason:ADT Feed End date:05/17/2025 Close reason:Cannot Reach Overview ED- Pt went to [facility] ED on 02/21/25. Continued Care and Services Coordination
--- OUTSIDE RECORDS SUMMARY | 2025-05-18 11:01 | XMS_ITS | Clinical Summary ---
Author Organization [facility] Address [address] [place] [address] Phone Care Team Providers Care Wire Winding Machine Operator Name Role Phone Salud Tovar MD Primary Care Provider [phone] Allergies No known active allergies Medications No known medications Active Problems No known active problems Encounters Date Type Department Care Team Description 02/21/2025 6:11 AM EDT - 02/21/2025 9:44 AM EDT Emergency [facility] Emergency [address] [place] [address] Acute pain of right shoulder [...] 08/02/2022 Social Influencers of Health Screening 08/02/2022 Depression Screening 08/30/2024 COVID-19 Vaccine ( season) 2025 Influenza Vaccine (#1) 2025 5, [...] Signed Date: 02/21/2025 08:09 ET Workstation ID: [id number] Transcribed By: Self Edit Transcribed Date: 02/21/2025 [...] Signed Date: 02/21/2025 08:09 ET Workstation ID: [id number] Transcribed By: Self Edit Transcribed Date: 02/21/2025 [...] Signed Date: 02/21/2025 08:09 ET Workstation ID: [id number] Transcribed By: Self Edit Transcribed Date: 02/21/2025 [...] Signed Date: 02/21/2025 08:09 ET Workstation ID: [id number] Transcribed By: Self Edit Transcribed Date: 02/21/2025 08:09 ET Fausto CEE IMG CT PROCEDURES Final R esult * XR Shoulder 2+ Views Right (02/21/2025 6:18 AM EDT) Anatomical Region Laterality Modality Upper Extremities, Shoulder Right Radi ographic Imaging 02/21/2025 8:47 AM EDT Impressions 02/21/2025 8:48 AM EDT Impression: Acromioclavicular sprain. Alejandro CEE ([id number]) -------- FINAL REPORT -------- Dictated By: Margarita Riojas Dictated Date: 02/21/2025 08:47 ET Assigned Physician: Margarita Riojas Reviewed and Electronically Signed By: Margarita Riojas Signed Date: 02/21/2025 08:48 ET Workstation ID: [id number] Transcribed By: Self Edit Transcribed Date: 02/21/2025 [...] seen. IMPRESSION: Impression: Acromioclavicular sprain. Telerad JAYE ([id number]) -------- FINAL REPORT -------- Dictated By: Margarita Riojas Dictated Date: 02/21/2025 08:47 ET Assigned Physician: Margarita Riojas Reviewed and Electronically Signed By: Margarita Riojas Signed Date: 02/21/2025 08:48 ET Workstation ID: [id number] Transcribed By: Self Edit Transcribed Date: 02/21/2025 08:47 ET Wojciech Segura MD IMG XR PROCEDURES Final Res ult * (ABNORMAL) CBC auto differential (02/21/2025 3:40 AM EDT) WBC 12.0(H) 4.8 - 10.8 K/mcL LAB HEMETOLOGY METHOD 02/21/2025 3:[address] [facility] RBC 5.30 4.50 - 5.50 M/mcL LAB HEMETOLOGY METHOD 02/21/2025 3:[address] [facility] Hemoglobin 15.0 13.5 - 17.5 g/dL LAB [facility] Hematocrit 43.0 42.0 - 54.0 % LAB HEM[facility]OLOGY [facility] MCV 80.5 79.0 - 98.0 FL LAB HEMETOLOGY METHOD [facility] MCH 28.1 27.0 - 32.0 pcg LAB HEMETOLOGY METHOD 02/21/2025 3:53 AM [facility] MCHC 34.9 32.0 - 37.0 g/dL LAB HEMETOLOGY METHOD 02/21/2025 3:53 AM [facility] RDW 13.2 11.0 - 15.0 % LAB HEMETOLOGY METHOD 02/21/2025 3:53 AM [facility] Platelets 328 130 - 400 K/mcL LAB HEMETOLOGY METHOD 02/21/2025 3:53 AM [facility] MPV 9.5 7.0 - 11.0 FL LAB HEMETOLOGY METHOD 02/21/2025 3:53 AM [facility] NRBC 0.0 <1.0 % LAB HEMETOLOGY METHOD 02/21/2025 3:53 AM [facility] NRBC Absolute 0.00 <0.10 K/mcL LAB HEMETOLOGY METHOD 02/21/2025 3:53 AM [facility] Neutrophils Relative 79.3 % LAB HEMETOLOGY METHOD 02/21/2025 3:53 AM [facility] Lymphocytes Relative 13.6 % LAB HEMETOLOGY METHOD 02/21/2025 3:53 AM [facility] Monocytes Relative 5.6 % LAB HEMETOLOGY METHOD 02/21/2025 3:53 AM [facility] Eosinophils Relative 0.3 % LAB HEMETOLOGY METHOD 02/21/2025 3:53 AM [facility] Basophils Relative 0.8 % LAB HEMETOLOGY METHOD 02/21/2025 3:53 AM [facility] Immature Granulocytes Relative 0.4 % LAB HEMETOLOGY METHOD 02/21/2025 3:53 AM [facility] Neutrophils Absolute 9.53(H) 1.50 - 7.00 K/mcL LAB HEMETOLOGY METHOD 02/21/2025 3:[address] [facility] Lymphocytes Absolute 1.63 1.00 - 5.00 K/mcL LAB HEMETOLOGY METHOD 02/21/2025 3:[address] [facility] Monocytes Absolute 0.67 0.20 - 1.00 K/mcL LAB HEMETOLOGY METHOD 02/21/2025 3:[address] [facility] Eosinophils Absolute 0.04 0.00 - 0.50 K/[facility] LAB HEMETOLOGY METHOD 02/21/2025 3:[address] [facility] Basophils Absolute 0.10 0.00 - 0.20 K/mcL LAB HEMETOLOGY METHOD 02/21/2025 3:[address] [facility] Immature Granulocytes Absolute 0.05(H) 0.00 - 0.03 K/[facility] HEMETOLOGY METHOD 02/21/2025 3:[address] [facility] Blood Venous blood specimen / Unknown Venipuncture / Unknown 02/21/2025 3:40 AM EDT 02/21/2025 3:48 AM EDT us Wojciech Segura MD LAB BLOOD ORDERABLES Final Result [facility] [address] [place] [address], * (ABNORMAL) Comprehensive metabolic panel (02/21/2025 3:40 AM EDT) Sodium 139 133 - 145 mmol/L LAB CHEMISTRY METHOD 02/21/2025 4:[address] [facility] Potassium 3.8 3.5 - 5.5 mmol/L LAB CHEMISTRY METHOD 02/21/2025 4:11 AM [facility] Chloride 104 96 - 110 mmol/L LAB CHEMISTRY METHOD 02/21/2025 4:11 AM [facility] CO2 26 21 - 32 mmol/L LAB CHEMISTRY METHOD 02/21/2025 4:11 AM [facility] Anion Gap 9 3 - 11 LAB CHEMISTRY METHOD 02/21/2025 4:11 AM [facility] Glucose 165(H) 70 - 100 mg/dL LAB CHEMISTRY METHOD 02/21/2025 4:11 AM [facility] BUN 9 5 - 25 mg/dL LAB CHEMISTRY METHOD 02/21/2025 4:11 AM [facility] Creatinine 1.04 0.70 - 1.30 mg/dL LAB CHEMISTRY METHOD 02/21/2025 4:11 AM [facility] eGFR 101 >=60 mL/min/1. 73m2 LAB CHEMISTRY METHOD 02/21/2025 4:11 AM [facility] Comment:Calculation based on the Chronic Kidney Disease Epidemiology Collaboration (CKD-EPI) equation refit without adjustment for race. BUN/Creatinine Ratio 8.7 LAB CHEMISTRY METHOD 02/21/2025 4:11 AM [facility] Calcium 9.2 8.5 - 10.5 mg/dL LAB CHEMISTRY METHOD 02/21/2025 4:11 AM [facility] AST (SGOT) 17 10 - 42 unit/L LAB CHEMISTRY METHOD 02/21/2025 4:11 AM [facility] ALT (SGPT) 30 10 - 60 unit/L LAB CHEMISTRY METHOD 02/21/2025 4:11 AM [facility] Alkaline Phosphatase 96 42 - 121 unit/L LAB CHEMISTRY METHOD 02/21/2025 4:11 AM [facility] Total Protein 7.6 6.0 - 8.0 g/dL LAB CHEMISTRY METHOD 02/21/2025 4:11 AM [facility] Albumin 3.7 3.2 - 5.0 g/dL LAB CHEMISTRY METHOD 02/21/2025 4:[address] [facility] Total Bilirubin 0.3 0.0 - 1.4 mg/dL LAB CHEMISTRY METHOD 02/21/2025 4:[address] [facility] Blood Venous blood specimen / Unknown Venipuncture / Unknown 02/21/2025 3:40 AM EDT 02/21/2025 3:48 AM EDT Wojciech Segura MD LAB BLOOD ORDERABLES Final Result [facility] [address] [place] [address], [place] [phone] * ECG 12 lead (02/21/2025 3:30 AM EDT) Ventricular Rate ECG 104 BPM GEMUSE Atrial Rate 104 BPM GEMUSE P-R Interval 184 ms GEMUSE QRS Duration 82 ms GEMUSE Q-T Interval 326 ms GEMUSE QTc 428 ms GEMUSE P Wave [place] 32 degrees GEMUSE R [place] 23 degrees GEMUSE T [place] 50 degrees GEMUSE ECG Interpretation Sinus tachycardia Otherwise normal ECG When compared with ECG of 21-MAR-2021 23:52, ST no longer depressed in Inferior leads Confirmed by DUSTY DONOHUE ([id number]) on 02/21/2025 11:28:00 AM GEMUSE 02/21/2025 3:30 AM EDT 02/21/2025 11:28 AM EDT Wojciech Segura MD ECG ORDERABLES Final Resul t G[facility] from Last 3 Months Insurance [place] Care Teams Wire Winding Machine Operator Relationship Specialty Start Date End Date Salud Tovar MD [address] [place] [phone] PCP - General 03/27/24
--- OUTSIDE RECORDS SUMMARY | 2025-05-18 11:01 | XMS_ITS | Encounter Summary ---
Author Organization [employer] Address [address] [place] [address] [address] [place] [address] Care Team Providers Care Hearing Examiner Name Role Phone Salud Tovar MD Primary Care Provider [phone] Joann Camp RN Unavailable [phone] Elyse Holland Unavailable Reason for Referral * Consultation (Urgent) - Closed Specialty Diagnoses / Procedures Referred By Todd cortez Referred To Contact Orthopaedic Surgery Diagnoses Sprain of right acromioclavicular ligament, initial encounter Salud Tovar MD [address] [place] [address] Phone: tel: fax: [facility] [address] [place] [address] Phone: tel:[phone] Referral ID Status Reason Start Date Expiration Date V isits Requested Visits Authorized [id number] Closed Specialty Services Required 03/01/2025 03/01/2026 1 1 Encounter Details Date Type Department Care Team (Latest Contact Info) Description 03/01/2025 Orders Only [facility] [address] [place] [phone] Salud Tovar MD [address] [place] [address] Sprain of right acromioclavicular ligament, initial encounter (Primary Dx) Social History Tobacco Use Types [...] as of this encounter Plan of Treatment Scheduled Referrals Name Type Priority Associated Diagnoses Orde r Schedule Referral to Orthopaedic Surgery Outpatient Referral Urgent Sprain of right acromioclavicular ligament, initial encounter Expected: 03/01/2025 (Approximate), Expires: 03/01/2026 documented as of this encounter Visit Diagnoses Diagnosis Sprain of right acromioclavicular ligament, initial encounter- Primary documented in this encounter Additional Health Concerns Assessment Noted Time PHQ-9 Depression Total Score: 9 10/03/19 25 1:51 PM EST documented as of this encounter Care Teams Hearing Examiner Relationship Specialty Start Date End Date Salud Tovar MD [address] [place] [phone] PCP - General Family Medicine 08/30/18 Joann Camp RN [address] [place] [phone] Registered Nurse Family Medicine 02/21/25 05/17/25 Elyse Holland 02/21/25 05/17/25 documented as of this encounter
--- OUTSIDE RECORDS SUMMARY | 2025-05-18 11:01 | XMS_ITS | Encounter Summary ---
Author Organization [employer] Address [address] [place] [address] Care Team Providers Care Commercial Solar Sales Consultant Name Role Phone Salud Tovar MD Primary Care Provider [phone] Joann Camp RN Unavailable Elyse Holland Unavailable Encounter Details Date Type Department Care Team (Late st Contact Info) Description 09/01/2022 Abstract [facility] MEDICINE [address] [place] [address] Salud Tovar MD [address] [place] [address] Social History Tobacco Use Types Packs/Day Years Used Date Smoking Tobacco: Never Assessed Sex and Gender Information Value Date Recorded Sex Assigned at Male 06/29/2022 10:22 AM EDT Legal Sex Male 10:22 AM EDT Gender Identity Male 06/29/2022 10:22 AM EDT Sexual Orientation Straight 06/15/2023 6: 28 AM EDT documented as of this encounter Plan of Treatment Not on file documented as of this encounter Visit Diagnoses Not on filedocumented in this encounter Care Teams Commercial Solar Sales Consultant Relationship Specialty Start Date End Date Salud Tovar MD [address] [place] [address] PCP - General Family Medicine 08/30/18 Joann Camp RN [address] [place] [address] Registered Nurse Family Medicine 02/21/25 05/17/25 Elyse Holland 02/21/25 05/17/25 documented as of this encounter
--- OUTSIDE RECORDS SUMMARY | 2025-05-18 11:01 | XMS_ITS | Encounter Summary ---
Author Organization [email or web address] Address [address] [place] [address] Care Team Providers Care Axle Inspector Name Role Phone Salud Tovar MD Primary Care Provider [phone] Joann Camp RN Unavailable [phone] Elyse Holland Unavailable Encounter Details Date Type Department Care Team (Late st Contact Info) Description 02/21/2025 Orders Only [facility] [address] [place] [address] Provider, MD [place] Social History Tobacco Use Types Packs/Day Years [...] t he electric, gas, oil or water [employer] threatened to shut off services in your [...] Procedure Name Priority Date/Time Associated Diagnosis Comments CT CERVICAL SPINE WO CONTRAST Routine 02/21/2025 10:[address] HEAD WO CONTRAST Routine 02/21/2025 10:45 AM EDT documented in this encounter Results * CT Cervical Spine w/o Contrast (02/21/2025 10:50 AM EDT) Anatomical Region Laterality Modality Spine, C-spine Computed Tomogra phy Historical Provider MD BRODY CT PROCEDURES Final R esult * CT Head w/o Contrast (02/21/2025 10:45 AM EDT) Anatomical Region Laterality Modality Head, Neck Computed Tomogra phy us Historical Provider MD BRODY CT PROCEDURES Final R esult documented in this encounter Visit Diagnoses Not on filedocumented in this encounter Additional Health Concerns Assessment Noted Time PHQ-9 Depression Total Score: 9 10/03/19 25 1:51 PM EST documented as of this encounter Care Teams Axle Inspector Relationship Specialty Start Date End Date Salud Tovar MD [address] [place] [address] PCP - General Family Medicine 08/30/18 Joann Camp RN [address] [place] [address] Registered Nurse Family Medicine 02/21/25 05/17/25 Elyse Holland 02/21/25 05/17/25 documented as of this encounter
== END 2025-05-18 11:29 | disposition home or self-care (01) ==
LOC: HO.HOS 10:26
PROVIDERS: Visit Provider Physician Assistant
DX: S43.109A Unspecified dislocation of unspecified acromioclavicular joint, initial encounter (principal)
CPT/HCPCS: 99213

== ENCOUNTER → 2025-05-18 10:27 | Outpatient (BNV) | payer MEDICAID, SELFPAY | PROVIDERS: Visit Provider Radiology Diagnostic Radiology | DX: M25.511 Pain in right shoulder (principal) | CPT/HCPCS: 73030 ==

== ENCOUNTER 2025-08-07 15:18 | Emergency (ER) | payer MEDICAID, SELFPAY ==
[2025-08-07 15:29] VITALS: BP 153/91; PULSE 69; RESP 18; TEMP 36.7; O2SAT 99; BMI 28.7
--- NOTE | 2025-08-07 15:38 | ED.GENADULT ---
HPI - General Adult General Chief complaint: ETOH/Substance Use Stated complaint: Alcohol withdrawal Time Seen by Provider: 08/07/25 17:50 Source: patient Mode of arrival: ambulatory Limitations: no limitations History of Present Illness ED Provider: Dr. Walter [facility] narrative: This is a 29-year-old male history of alcohol use disorder presented hospital today due to insomnia. Last drank alcohol approximately 35 hours ago. Patient stated that he is not sleepy. He is not interested in detox at this time. He states he does have slight tremors. He does not want to come off alcohol. He stated that he is looking for sleep assistance. Related Data Home Medications ?Medication ?Instructions ?Recorded ?Confirmed ibuprofen 400 mg tablet 400 mg PO Q8H 03/26/22 04/02/22 Previous Rx's ?Medication ?Instructions ?Recorded gabapentin 100 mg capsule 200 mg (2 x 100 mg) PO BEDTIME 30 05/11/22 days #60 caps gabapentin 300 mg capsule 600 mg (2 x 300 mg) PO BEDTIME 30 09/14/22 days #60 caps albuterol sulfate 90 mcg/actuation 2 inh inhalation Q6H PRN shortness 07/16/23 aerosol inhaler of breath or wheezing 30 days #18 grams omeprazole 40 mg capsule,delayed 40 mg PO DAILY 30 days #30 caps 09/27/23 release naproxen 500 mg tablet 500 mg PO Q12H PRN pain 30 days 03/09/25 #60 tabs olanzapine 5 mg tablet (Zyprexa) 5 mg PO BEDTIME 7 days #7 tabs 08/07/25 Allergies Allergy/AdvReac Type Severity Reaction Status Date / Time No Known Allergies (No Known Allergy Verified 08/07/25 15:31 Allergies*) Review of Systems Review of Systems: Pertinent review of systems as mentioned in HPI. All other system otherwise negative. [facility] Past Medical History [facility] Narrative: Medical history as mentioned in HPI Medical History (Updated 08/08/25 @ 00:01 by Ryland Velazquez) Insomnia BHAVANI (obstructive sleep apnea) Pulmonary nodule Chest pain Tachycardia GERD (gastroesophageal reflux disease) Pneumothorax Lung blebs Dyspnea Surgical History (Updated 12/31/21 @ 13:09 by CARA Chaney) No pertinent past surgical history Family History Family History (Updated 12/31/21 @ 13:09 by CARA Chaney) Father No problems noted. Mother No problems noted. 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 Physical Exam ED Exam Exam: General: Pleasant, no distress, interacting appropriately Head: Normacephalic, atraumatic ENT: oral mucosa moist, neck supple, no tracheal deviation Cardiovascular: regular rate, regular rhythm, no murmurs, rubbing, gallops Respiratory: CTAB, no wheeze, rales, rhonchi Neurological: Awake and alert, no facial droop noted Skin: Warm and dry Psychiatric: Appropriate mood and thoughts Vital Signs: Vital Signs - 24 hr 08/07/25 15:29 08/07/25 19:09 08/07/25 21:08 Temperature 98.1 F 98.2 F 98.2 F Pulse Rate 69 72 72 Respiratory Rate 18 18 18 Blood Pressure 153/91 H 148/88 H 148/88 H Pulse Oximetry 99 98 98 Oxygen Delivery Method Room Air Room Air Room Air BMI result Body Mass Index 28.7 Course Course Course Narrative: RmE: 29-year-old male presents to ED for alcohol withdrawal. Patient states last drink was 21 hours ago. Patient has not slept and 26 hours. Patient has had slight tremors. Labs ordered. Medications Administered Discontinued Medications Generic Name Dose Route Start Last Admin Trade Name Freq PRN Reason Stop Dose Admin Olanzapine 5 mg 08/07/25 18:34 08/07/25 19:23 Olanzapine 5 Mg Tablet PO 08/07/25 18:35 5 mg ONCE ONE Administration Medical Decision Making Medical Decision Making MDM Narrative: 29-year-old male presented hospital today for evaluation of insomnia. Has history of alcohol use disorder. I did give patient a dose of Zyprexa. Patient was able to rest. Patient is not interested in detox at this time. We will plan to discharge patient home with short course of Zyprexa to take have him follow up with his primary care doctor. I do not want to prescribe him benzodiazepine as this may be high risk in setting of alcohol use disorder. Bilirubin is elevated likely secondary to alcohol use disorder. No right upper quadrant tenderness. The patient will be discharged home. Outpatient detox resource will be provided the patient. Differential Diagnosis Differential Diagnoses: The differential diagnosis associated with the presentation includes Insomnia, alcohol use disorder Lab Data MDM Lab Attestation statement: I reviewed the patient's lab results. 08/07/25 16:31 08/07/25 16:31 Labs: Lab Results 08/07/25 Range/Units 16:31 WBC 9.6 (4.8-10.8) X10*3/uL RBC 5.57 (4.60-5.80) X10*6/uL Hgb 15.8 (14.0-18.0) g/dl Hct 43.5 (42.0-52.0) % MCV 78.1 L (80.0-98.0) fL MCH 28.4 (27.0-33.0) pg MCHC 36.3 H (31.0-36.0) g/dl RDW 13.5 (11.0-16.0) % Plt Count 282 (160-400) X10*3/uL MPV 9.5 (9.4-12.4) fL Immature Gran % (Auto) 0.2 (0.0-0.4) % Neut % (Auto) 68.9 (45-73) % Lymph % (Auto) 19.1 L (20-40) % [place] % (Auto) 9.5 (2-11) % Eos % (Auto) 1.3 (0-4) % Baso % (Auto) 1.0 (0-2) % Lymph # (Auto) 1.8 (1.2-4.9) X10*3/uL [place] # (Auto) 0.9 (0.1-1.2) X10*3/uL Eos # (Auto) 0.1 (0.0-0.4) X10*3/uL Baso # (Auto) 0.1 (0.0-0.2) X10*3/uL Abs Immat Gran (auto) 0.02 (0.00-0.03) X10*3/uL Absolute Neuts (auto) 6.6 (2.0-8.3) x10*3/uL Absolute Nucleated RBC 0.000 (0.0-0.012) X10*3/uL Nucleated RBC % (auto) 0.0 (0.0-0.2) /100WBC Sodium 135 (135-145) mmol/L Potassium 3.6 (3.3-5.1) mmol/L Chloride 97 (96-108) mmol/L Carbon Dioxide 29 (22-29) mmol/L Anion Gap 13 (12-20) BUN 13 (9-16) mg/dL Creatinine 0.96 (0.5-1.4) mg/dL Estim Creat Clear Calc 142.8 Estimated GFR > 60 Random Glucose 138 H (60-115) mg/dL Calcium 9.7 (8.4-10.2) mg/dL Magnesium 1.9 (1.6-2.6) mg/dL Total Bilirubin 1.6 H (0.0-1.0) mg/dL AST 39 H (5-37) U/L ALT 46 H (0-40) U/L Alkaline Phosphatase 94 (39-117) U/L Total Protein 8.5 H (6.5-8.0) g/dL Albumin 4.8 (3.5-5.0) g/dL Ethyl Alcohol < 10 mg/dL Chronic Conditions alcohol use disorder Discharge Plan Discharge Clinical Impression: Insomnia Qualifiers: Insomnia type: primary Qualified Code(s): F51.01 - Primary insomnia Patient Disposition: Home, Self-Care Instructions: Insomnia (ED) Additional Instructions: Alcohol use disorder You were seen in the Emergency Department today for treatment of alcohol use disorder.? You may have been given medications to help with your withdrawal symptoms.? Please do not drink alcohol with them. This is very dangerous and can cause respiratory depression or other adverse reactions depending on the medication. If you would like to cut down or stop your alcohol use please consider calling our outpatient Addiction Treatment office:? [facility] ([id number] [id number] [address] [place] [address] [address] You have also been given a list of treatment providers in the area that can assist as well.? If you experience seizures, vomiting blood, black stools, falls, severe headache, chest pain, fevers, trouble breathing, hallucinations or any other concerns you need to call 911 or seek immediate care. Please stay hydrated. Prescriptions: New olanzapine [Zyprexa] 5 mg tablet 5 mg PO BEDTIME 7 Days Qty: 7 0RF No Action omeprazole 40 mg capsule,delayed release(DR/EC) 40 mg PO DAILY 30 Days Qty: 30 6RF gabapentin 100 mg capsule 200 mg PO BEDTIME 30 Days Qty: 60 3RF ibuprofen 400 mg tablet 400 mg PO Q8H gabapentin 300 mg capsule 600 mg PO BEDTIME 30 Days Qty: 60 3RF albuterol sulfate 90 mcg/actuation HFA aerosol inhaler 2 inh inhalation Q6H PRN (Reason: shortness of breath or wheezing) 30 Days Qty: 18 12RF naproxen 500 mg tablet 500 mg PO Q12H PRN (Reason: pain) 30 Days Qty: 60 0RF Interventions: ED Discharge Assessment Last Done: 08/07/25 21:08 Discharge Date/Time: 08/07/25 21:33 Print Language: Persian
[2025-08-07 16:37] LABS: MANUAL DIFF FLAG NO
[2025-08-07 16:48] LABS: Hematocrit 43.5 % (42.0-52.0); Hemoglobin 15.8 g/dl (14.0-18.0); Imm Gran Abs Auto 0.02 X10*3/uL (0.00-0.03); Imm Gran Pct Auto 0.2 % (0.0-0.4); Lymphocytes Absolute Auto 1.8 X10*3/uL (1.2-4.9); Mean Corpuscular HGB Conc 36.3 g/dl (31.0-36.0); Mean Corpuscular Hemoglobin 28.4 pg (27.0-33.0); Mean Corpuscular Volume 78.1 fL (80.0-98.0); NRBC Abs Auto 0.000 X10*3/uL (0.0-0.012); NRBC Pct Auto 0.0 /100WBC (0.0-0.2); Platelet Count 282 X10*3/uL (160-400); Red Blood Count 5.57 X10*6/uL (4.60-5.80); White Blood Count 9.6 X10*3/uL (4.8-10.8)
[2025-08-07 16:58] LABS: Alanine Aminotransferase 46 U/L (0-40); Albumin Level 4.8 g/dL (3.5-5.0); Alkaline Phosphatase 94 U/L (39-117); Anion Gap 13 (12-20); Aspartate Amino Transferase 39 U/L (5-37); Blood Urea Nitrogen 13 mg/dL (9-16); Calcium 9.7 mg/dL (8.4-10.2); Carbon Dioxide 29 mmol/L (22-29); Chloride 97 mmol/L (96-108); Creatinine Clr Calc Pharmacy 142.8; Estimated Glomerular Filt Rate > 60; Magnesium 1.9 mg/dL (1.6-2.6); Potassium 3.6 mmol/L (3.3-5.1); Sodium 135 mmol/L (135-145); Total Protein 8.5 g/dL (6.5-8.0)
[2025-08-07 19:09] VITALS: BP 148/88; PULSE 72; RESP 18; TEMP 36.8; O2SAT 98
[2025-08-07 21:08] VITALS: BP 148/88; PULSE 72; RESP 18; TEMP 36.8; O2SAT 98
--- OUTSIDE RECORDS SUMMARY | 2025-08-07 23:05 | XMS_ITS | Encounter Summary ---
Author Organization [employer] Address [address] [facility] 7 [place] [address] Care Team Providers Care Firearms Assembly Supervisor Name Role Phone Salud Tovar MD Primary Care Provider [phone] Joann Camp RN Unavailable [phone] Elyse Holland Unavailable Encounter Details Date Type Department Care Team (Late st Contact Info) Description 02/26/2025 Telephone [facility] MEDICINE [address] [place], [place] [phone] Salud Tovar MD [address] [place], [place] [phone] Social History Tobacco Use Types Packs/Day Years [...] was supposed cata get a call from patient care coordinator team today at 1pm documented in this encounter Plan of Treatment Not on file documented as of this encounter Visit Diagnoses Not on filedocumented in this encounter Additional Health Concerns Assessment Noted Time PHQ-9 Depression Total Score: 9 10/03/19 25 1:51 PM EST documented as of this encounter Care Teams Firearms Assembly Supervisor Relationship Specialty Start Date End Date Salud Tovar MD [address] [place] [address] PCP - General Family Medicine 08/30/18 Joann Camp RN [address] [place] [id number] Registered Nurse Family Medicine 02/21/25 05/17/25 Elyse Holland 02/21/25 05/17/25 documented as of this encounter
--- OUTSIDE RECORDS SUMMARY | 2025-08-07 23:05 | XMS_ITS | Encounter Summary ---
Author Organization [employer] Address [address] [facility] 7t [place] [address] Care Team Providers Care Disabilities Services Officer Name Role Phone Salud Tovar MD Primary Care Provider [phone] Joann Camp RN Unavailable [phone] Elyse Holland Unavailable Encounter Details Date Type Department Care Team (Late st Contact Info) Description 04/13/2025 Orders Only [facility] MEDICINE [address] [place], [place] [phone] Salud Tovar MD [address] [place], [place] [phone] Social History Tobacco Use Types Packs/Day Years [...] documented as of this encounter Care Teams Disabilities Services Officer Relationship Specialty Start Date End Date Salud Tovar MD [address] [place] [id number] PCP - General Family Medicine 08/30/18 Joann Camp RN [address] [place] [id number] Registered Nurse Family Medicine 02/21/25 05/17/25 Elyse Holland 02/21/25 05/17/25 documented as of this encounter
--- OUTSIDE RECORDS SUMMARY | 2025-08-07 23:05 | XMS_ITS | Encounter Summary ---
Author Organization [employer] Address [address] [place] [address] 7 [place] [address] Care Team Providers Care Access Clerk Name Role Phone Salud Tovar MD Primary Care Provider [phone] Joann Camp RN Unavailable [phone] Elyse Holland Unavailable Reason for Visit * Reason Onset Date Comments returning call 03/12/2023 Encounter Details Date Type Department Care Team (Late st Contact Info) Description 03/12/2023 Telephone [facility] MEDICINE [address] [place], [place] [phone] Salud Tovar MD [address] [place], [place] [phone] returning call Social History Tobacco Use Types [...] encounter Miscellaneous Notes * Telephone Encounter - Lindasy Camp - 03/12/2023 11:35 AM EDT Tc from pt returning your request to speak with him. documented in this encounter Plan of Treatment Not on file documented as of this encounter Visit Diagnoses Not on filedocumented in this encounter Additional Health Concerns Assessment Noted Time PHQ-9 Depression Total Score: 0 09/22/19 23 3:25 PM EST documented as of this encounter Care Teams Access Clerk Relationship Specialty Start Date End Date Salud Tovar MD [address] [place] [address] PCP - General Family Medicine 08/30/18 Joann Camp, RAJESH [address] [place] [address] Registered Nurse Family Medicine 02/21/25 05/17/25 Elyse Holland 02/21/25 05/17/25 documented as of this encounter
--- OUTSIDE RECORDS SUMMARY | 2025-08-07 23:05 | XMS_ITS | Encounter Summary ---
Author Organization [employer] Address [address] [place] [address] Care Team Providers Care Grocery Store Associate Name Role Phone Salud Tovar MD Primary Care Provider [phone] Joann Camp RN Unavailable [phone] Elyse Holland Unavailable Encounter Details Date Type Department Care Team (Late st Contact Info) Description 09/01/2022 Abstract [facility] MEDICINE [address] [place] [address] Salud Tovar MD [address] [place] [address] Social History Tobacco Use Types Packs/Day Years [...] on filedocumented in this encounter Care Teams Grocery Store Associate Relationship Specialty Start Date End Date Salud Tovar MD [address] [place] [address] PCP - General Family Medicine 08/30/18 Joann Camp RN [address] [place] [id number] Registered Nurse Family Medicine 02/21/25 05/17/25 Elyse Holland 02/21/25 05/17/25 documented as of this encounter
--- OUTSIDE RECORDS SUMMARY | 2025-08-07 23:05 | XMS_ITS | Encounter Summary ---
Author Organization [employer] Address [address] [facility] 7 [place] [address] Care Team Providers Care Adjunct Professor Of Law Name Role Phone Salud Tovar MD Primary Care Provider Joann Camp RN Unavailable [phone] Elyse Holland Unavailable Reason for Visit * Reason Onset Date Comments Appointment Request 06/19/2024 Encounter Details Date Type Department Care Team (Late st Contact Info) Description 06/19/2024 Telephone [facility] MED[facility]INE [address] [place], [place] [phone] Salud Tovar MD [address] [place], [place] [phone] Appointment Request Social History Tobacco Use Types [...] from patients father calling to cancel appt creative services writer did attempt to reschedule however no availability documented in this encounter Plan of Treatment Not on file documented as of this encounter Visit Diagnoses Not on filedocumented in this encounter Additional Health Concerns Assessment Noted Time PHQ-9 Depression Total Score: 12 024 2:09 PM EDT documented as of this encounter Care Teams Adjunct Professor Of Law Relationship Specialty Start Date End Date Salud Tovar MD [address] [place] [address] PCP - General Family Medicine 08/30/18 Joann Camp RN [address] [place] [address] [place] [address] Registered Nurse Family Medicine 02/21/25 05/17/25 Elyse Holland 02/21/25 05/17/25 documented as of this encounter
--- OUTSIDE RECORDS SUMMARY | 2025-08-07 23:05 | XMS_ITS | Encounter Summary ---
Author Organization [employer] Address [address] [place] [address] [address] [place] [address] Care Team Providers Care Mason Liner Name Role Phone Salud Tovar MD Primary Care Provider [phone] Joann Camp RN Unavailable [phone] Elyse Holland Unavailable Reason for Visit * Reason Onset Date Comments Nurse Triage 02/11/2023 Encounter Details Date Type Department Care Team (Late st Contact Info) Description 02/11/2023 Telephone [facility] MEDICINE [address] [place], [place] [phone] Salud Tovar MD [address] [place], [place] [phone] Nurse Triage Social History Tobacco Use Types [...] acuity questions The caller accepted this outcome (Djiboutian speaker) documented in this encounter Plan of Treatment Not on file documented as of this encounter Visit Diagnoses Not on filedocumented in this encounter Additional Health Concerns Assessment Noted Time PHQ-9 Depression Total Score: 0 09/22/19 23 3:25 PM EST documented as of this encounter Care Teams Mason Liner Relationship Specialty Start Date End Date Salud Tovar MD [address] [place] [address] PCP - General Family Medicine 08/30/18 Joann Camp RN [address] [place] [id number] Registered Nurse Family Medicine 02/21/25 05/17/25 Elyse Holland 02/21/25 05/17/25 documented as of this encounter
--- OUTSIDE RECORDS SUMMARY | 2025-08-07 23:05 | XMS_ITS | Clinical Summary ---
Author Organization [employer] Address [address] [place] [address] 7 [place] [address] Care Team Providers Care Cook Pickled Meat Name Role Phone Salud Tovar MD Primary Care Provider [phone] Allergies No known active allergies Medications * [...] needed for anxiety 30 tablet 04/13/2025 Active Nirmatrelvir&Ri tonavir 300/100 (Paxlovid, 300/100,) 20 x 150 MG & 10 x 100MG tablet therapy packIndications :COVID-19 Take 1 Dose by mouth every 12 (twelve) hours. 10 each 06/08/2025 Active Active Problems Problem Noted Date Diagnosed Date COVID-19 06/08/2025 Assessment & Plan (06/08/2025 2:42 PM EDT): Drink plenty of fluids and rest I will prescribe for patient Paxlovid medication interactions were reviewed he is not on any other medications I advised to quarantine as per CDC guidelines If symptoms get worse like shortness of breath, chest pain advised to go to the emergency room Separation of right acromioclavicular joint 01/2025 Assessment & Plan (04/04/2025 10:23 AM EDT): - Date of injury on 02/21/2025 - Followed by [facility] orthopedics, last seen on 03/09/2025. - Currently receiving physical therapy Vitamin D deficiency 10/03/2024 Assessment & Plan (10/03/2024 6:53 PM EST): - Ordered Vitamin D, 25-Hydroxy, Total, Immunoassay Elevated BP without diagnosis of hypertension Assessment & Plan (06/08/2025 2:43 PM EDT): Today blood pressure was elevated again I advised low-sodium diet and weight reduction Advised to monitor his blood pressure at home and log it and bring it for next appointment in 2 weeks with nurse for BP check if blood pressure continues to be elevated more than 140/90 plan is to initiate amlodipine 2.5 mg daily Assessment & Plan (04/04/2025 10:21 AM EDT): [...] him that he will unlikely qualify for CINEMA OR THEATRE MANAGER His disability may be supported by other means, such as [facility] engagement, custodial, and employment that will accommodate his diability [...] - Advise to continue follow up with [facility] Assessment & Plan (09/05/2023 10:11 AM EST): - refer [facility] Moderate episode of recurren t major depressive disorder ([facility]/HCC) 03/26/2023 Assessment & Plan (10/10/2024 10:59 AM EST): - patient most likely has ADHD, anxiety, and depression GAD7 score 9, PHQ 9 score 12 on 03/14/24 no SI GAD7 score 10, PHQ9 score 9 on 10/03/24 -Prescribed Sertraline 25 mg daily, but patient self-discontinued -Prescribed Hydroxyzine 25mg q8h prn for anxiety but patient self-discontinued. -Referred to [facility] provider for assistance in Dx [...] Alcohol Use Disorder No previous hx of services who presents for Depression and Anxiety. 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 He denies any other substance use. Patient will benefit from Ind. Therapy, bu he declined referral and this verse writer support at the moment. 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 Follow up with [facility]: Not recommended for follow-up 2. Patient goal is become sober 3. Behavioral Recommendations a. Ptn will reach out for support once he is ready GERD (gastroesophageal reflux disease) 3 Assessment & Plan (03/14/2024 5:42 PM EDT): - evaluated by GI - EGD in Jul 2020 at [facility]. Completely normal exam per GI - reduce alcohol intake - avoid NSAIDs - elevated head of bed, avoid laying down after meal - restart omeprazole 20 mg in the morning and famotidine 20 mg at night Assessment & Plan (09/05/2023 10:05 AM EST): - evaluated by GI - EGD in Jul 2020 at [facility]. Completely normal exam per GI - reduce alcohol intake - avoid NSAIDs - elevated head of bed, avoid laying down after meal - continue omeprazole Assessment & Plan (01/29/2023 9:44 AM EDT): - evaluated by GI - EGD in Jul 2020 at [facility]. Completely normal exam per GI - reduce alcohol intake - elevated head of bed, avoid laying down after meal - continue omeprazole BHAVANI (obstructive sleep apnea) 01/19/2023 Assessment & Plan (12/07/2023 12:00 AM EDT): -Following with pathology collector, Dr. Holland [facility], last seen in Jun 2023 -09/14/22 Sleep study - borderline BHAVANI -was not adherent to CPAP and returned CPAP -continue recommendation by pathology collector; if patient wants to retry CPAP, recommended to speak with pathology collector or CPAP supplier Assessment & Plan (09/05/2023 10:03 AM EST): -Following with pathology collector, Dr. Holland [facility], last seen in Jun 2023 -09/14/22 Sleep study - borderline BHAVANI -was not adherent to CPAP and returned CPAP -continue recommendation by pathology collector; if patient wants to retry CPAP, recommended to speak with pathology collector or CPAP supplier Assessment & Plan (01/29/2023 9:27 AM EDT): -Following with pathology collector -09/14/22 Sleep study - borderline BHAVANI -seems to be adherent to CPAP use and some improvement -cont current treatment per pathology collector Anxiety 01/12/2023 Overview (01/19/2023): Interested in medication. [...] for anxiety but patient self-discontinued. -Referred to S provider for assistance in [...] for anxiety but questionable adherence -Referred to [facility] provider for assistance in Dx [...] for anxiety but questionable adherence -Refer to [facility] provider for assistance in Dx and Tx recommendation Assessment & Plan (06/15/2023 6:34 AM EDT): ANNABELLA 12, PHQ 9 is 5 no SI -refuse BH offered today -to f w PCP in next 4 to 6 weeks ,may need to consider medication Assessment & Plan (01/12/2023 6:02 PM EDT): Seen by N. -Relaxation techniques discussed. -Not interested in medication or therapy at this time but is open to possivbility his symptoms are caused from anxiety. Post-traumatic stress disorder, unspecified 12/28 Assessment & Plan (09/05/2023 10:06 AM EST): - Hx pneumothorax - Recommended to resume [facility] Alcohol consumption binge drinking 01/12/2023 Overview (01/12/2023): [...] advised to check next follow-up appointment with pathology collector Assessment & Plan (03/14/2024 5:42 PM EDT): -Present since Pneumothorax several years ago. -EKG normal sinus rhythm. -patient was advised to check next follow-up appointment with pathology collector Assessment & Plan (12/07/2023 12:00 AM EDT): [...] cardiology; no cardiovascular problme - following with pathology collector for persistent symptoms, currently being treated for [...] diet and exercise,discussed healthy life style -discussed computer forensics analyst referral --refusing for now Assessment & Plan (09/28/2022 9:35 AM EST): - continue working on lifestyle modifications History of pneumothorax 09/01/2022 Assessment & Plan (03/14/2024 5:43 PM EDT): -Spontaneous -Right side in October 2018 -managed with thoracotomy / chest tube and hospitalization -current dyspnea and chest pain are likely sequale -following with pathology collector -informed that we cannot predict when or whether he will have another episode, and we will not be able to arrange CINEMA OR THEATRE MANAGER for an uncertain event. Assessment & Plan (12/07/2023 12:01 AM EDT): -Spontaneous -Right side in October 2018 -managed with thoracotomy / chest tube and hospitalization -current dyspnea and chest pain are likely sequale -following with pathology collector -informed that we cannot predict when or whether he will have another episode, and we will not be able to arrange CINEMA OR THEATRE MANAGER for an uncertain event. Assessment & Plan (09/05/2023 10:11 AM EST): -Spontaneous -Right side in October 2018 -managed with thoracotomy / chest tube and hospitalization -current dyspnea and chest pain are likely sequale -following with pathology collector -informed that we cannot predict when or whether he will have another episode, and we will not be able to arrange CINEMA OR THEATRE MANAGER for an uncertain event. Assessment & Plan [...] Plan (10/03/2024 6:50 PM EST): -followed By Safety Representative and Clipper Operator. -Pt had normal Stress Test in 04/2021, but reported dyspnea -Normal echocardiogram in 02/2021. -Cardiopulmonary Stress test on 01/23/22. Normal. -04/02/22 PFT and methacholine challenge test - normal -Continue current treatment plan per pathology collector Assessment & Plan (03/14/2024 5:41 PM EDT): -followed By Safety Representative and Clipper Operator. -Pt had normal Stress Test in 04/2021, but reported dyspnea -Normal echocardiogram in 02/2021. -Cardiopulmonary Stress test on 01/23/22. Normal. -04/02/22 PFT and methacholine challenge test - normal -Continue current treatment plan per pathology collector Assessment & Plan (12/07/2023 12:00 AM EDT): -followed By Safety Representative and Clipper Operator. -Pt had normal Stress Test in 04/2021, but reported dyspnea -Normal echocardiogram in 02/2021. -Cardiopulmonary Stress test on 01/23/22. Normal. -04/02/22 PFT and methacholine challenge test - normal -Continue current treatment plan per pathology collector Assessment & Plan (09/05/2023 10:05 AM EST): -followed By Safety Representative and Clipper Operator. -Pt had normal Stress Test in 04/2021, but reported dyspnea -Normal echocardiogram in 02/2021. -Cardiopulmonary Stress test on 01/23/22. Normal. 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 -Pt had normal Stress Test in 04/2021, but reported dyspnea -Normal echocardiogram in 02/2021. -Cardiopulmonary Stress test on 01/23/22. ?futher work-up -04/02/22 PFT and methacholine challenge test - normal -Continue current treatment plan per pathology collector; pt is going to have another sleep study Assessment & Plan (09/01/2022 1:23 PM EST): -followed By Safety Representative and Clipper Operator. 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 He denies any other substance use. Patient will benefit from Ind. Therapy, bu he declined referral and this verse writer support at the moment. 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 Follow up with [facility]: Not recommended for follow-up 2. Patient goal [...] Encounters Date Type Department Care Team Description 08/07/2025 Orders Only GENERIC EXTERNAL DATA DEPARTMENT Provider, Generic External Data 08/07/2025 Patient Outreach [address] [phone] Collin Moore Recovery Supports 06/08/2025 1:20 PM EDT Office Visit [facility] [address] [place] [address] Carleen Ray MD COVID-19 (Primary Dx); Elevated BP without diagnosis of hypertension 06/08/2025 Travel 05/17/2025 Patient Outreach [facility] [address] [place] [address] Salud Tovar MD Care Coordination (CM/CHW outreach) 05/09/2025 Telephone [facility] [address] [place] [address] Salud Tovar MD june recall from Last 3 Months Immunizations Immunization Administration [...] Sign Reading Time Taken Comments Blood Pressure 150/88 06/08/2025 1:20 PM EDT Pulse 107 06/08/2025 1:20 PM EDT Temperature 35.7 C (96.2 F) 06/08/2025 1:20 PM EDT Respiratory Rate 16 06/08/2025 1:20 PM EDT Oxygen Saturation 97% 06/08/2025 1:20 PM EDT Inhaled Oxygen Concentration - - Weight 99.4 kg (219 lb 3.2 oz) 06/08/2025 1:20 P M EDT Height 185.4 cm (6' 1 ) 06/08/2025 1:20 PM EDT Body Mass Index 28.92 06/08/2025 1:20 PM EDT Plan of Treatment Health Maintenance Due Date Last Done Comments Family Planning (PISQ) 2012 Pneumococcal Vaccine: Pediatrics (0 to 5 Years) and At-Risk Patients (6 to 49) Years (1 of 2 - PCV) 2016 DTaP/Tdap/Td Vaccines (6 - Td or Tdap) 07/11/2022 07/11/2012, 04/04/2003, 04/08/2000, Additional history exists COVID-19 Vaccine ( - 2024- season) 2025 Influenza Vaccine (#1) 2025 5, 07/24/2013, 07/11/2012 Alcohol/Substance Use Screening 04/02/2026 04/02/2025 Depression Screening 04/02/2026 04/02/2025, 04/02/20 Disability Screening 04/02/2026 04/02/2025 SDOH Screening 04/02/2026 04/02/2025 Tobacco Screening 06/08/2026 06/08/2025 Zoster Vaccines (1 of 2) 12/23/2047 RSV [...] Procedure Name Priority Date/Time Associated Diagnosis Comments ETHANOL Routine 08/07/2025 4:31 PM EST MAGNESIUM Routine 08/07/2025 4:31 PM EST COMPREHENSIVE METABOLIC PANEL Routine 08/07/2025 4:31 PM EST CBC WITH AUTO DIFFERENTIAL Routine 08/07/2025 4:31 PM EST POCT RAPID COVID ANTIGEN Routine 06/08/2025 2:03 PM EDT COVID-19 POCT INFLUENZA A (ID NOW RAPID MOLECULAR) Routine 06/08/2025 2:02 PM EDT COVID-19 POCT INFLUENZA B (ID NOW RAPID MOLECULAR) Routine 06/08/2025 2:01 PM EDT COVID-19 ZZZ HISTORICAL HEPATITIS C AB W/REFL TO HCV RNA, QN, PCR Routine 03/18/2020 4:05 PM EDT HIV 1/2 ANTIGEN/ANTIBODY, FOURTH GENERATION W/RFL Routine 03/18/2020 4:05 PM EDT from Last 3 Months or Most Recently Relevant to Health Maintenance Results * Ethanol (08/07/2025 4:31 PM EST) ETHANOL (MG/DL) IN SER/PLAS <10 mg/dL [facility] Comment:Serum/plasma ethanol results are to be used formedical/treatment purposes only. 08/07/2025 4:31 PM EST 08/07/2025 4:36 PM EST us Generic External Data Provider LAB BLOOD ORDERAB LES Final Result [facility] [address] [place] [phone] * (ABNORMAL) CBC auto differential (08/07/2025 4:31 PM EST) White Blood Count 9.6 4.8 - 10.8 X10*3/uL [facility] Red Blood Count 5.57 4.60 - 5.80 X10*6/uL [facility] Hemoglobin 15.8 14.0 - 18.0 g/dl [facility] Hematocrit 43.5 42.0 - 52.0 % [facility] Mean Corpuscular Volume 78.1(L) 80.0 - 98.0 fL [facility] Mean Corpuscular Hemoglobin 28.4 27.0 - 33.0 pg [facility] Mean Corpuscular HGB Conc 36.3(H) 31.0 - 36.0 g/dl [facility] Red Cell Distribution Width 13.5 11.0 - 16.0 % [facility] Platelet Count 282 160 - 400 X10*3/uL [facility] Mean Platelet Volume 9.5 9.4 - 12.4 fL [facility] Neutrophils Percent Auto 68.9 45 - 73 % [facility] Imm Gran Pct Auto 0.2 0.0 - 0.4 % [facility] Lymphocytes Percent Auto 19.1(L) 20 - 40 % [facility] Monocytes Percent Auto 9.5 2 - 11 % [facility] Eosinophils Percent Auto 1.3 0 - 4 % [facility] Basophils Percent Auto 1.0 0 - 2 % [facility] NRBC Pct Auto 0.0 0.0 - 0.2 /100WBC [facility] Neutrophils Absolute Auto 6.6 2.0 - 8.3 x10*3/uL [facility] Imm Gran Abs Auto 0.02 0.00 - 0.03 X10*3/uL [facility] Lymphocytes Absolute Auto 1.8 1.2 - 4.9 X10*3/uL [facility] Monocytes Absolute Auto 0.9 0.1 - 1.2 X10*3/uL [facility] Eosinophils Absolute Auto 0.1 0.0 - 0.4 X10*3/uL [facility] Basophils Absolute Auto 0.1 0.0 - 0.2 X10*3/uL [facility] NRBC Abs Auto 0.000 0.0 - 0.012 X10*3/uL [facility] 08/07/2025 4:31 PM EST 08/07/2025 4:36 PM EST Generic External Data Provider LAB BLOOD ORDERAB LES Final Result Performing Organization Address City/[facility]/ZIP Co de Phone Number [facility] [address] [place] [phone] * Magnesium (08/07/2025 4:31 PM EST) Pathologist [facility] Magnesium 1.9 1.6 - 2.6 mg/dL [facility] 08/07/2025 4:31 PM EST 08/07/2025 4:36 PM EST [employer] External Data Provider LAB BLOOD ORDERAB LES Final Result Performing Organization Address [facility]/ZIP Co de Phone Number [facility] [address] [place] [phone] * (ABNORMAL) Comprehensive Metabolic Panel (08/07/2025 4:31 PM EST) Pathologist [facility] Sodium 135 135 - 145 mmol/L [facility] Potassium 3.6 3.3 - 5.1 mmol/L [facility] Chloride 97 96 - 108 mmol/L [facility] Carbon Dioxide 29 22 - 29 mmol/L [facility] Anion Gap 13 12 - 20 [facility] Urea Nitrogen (BUN) 13 9 - 16 mg/dL [facility] Creatinine, Serum 0.96 0.5 - 1.4 mg/dL [facility] Creatinine Clr Calc Pharmacy 142.8 [facility] Comment:eGFR (calculated fro m the MDRD study equation) and eCrCl(calculated from the Cockcroft-Gault equation) are based ondifferent parameters and may not yield comparable results.If eCrCl result is absurd, please check patient'sheight/weight. Estimated Glomerular Filt Rate >60 [facility] Comment:Chronic Kidney Disea se: Estimated GFR < 60 mL/min/1.73m2Mkdxqu Kidney Disease: Estimated GFR < 15 mL/min/1.73m2 Glucose 138(H) 60 - 115 mg/dL [facility] Calcium 9.7 8.4 - 10.2 mg/dL [facility] Bilirubin, Total 1.6(H) 0.0 - 1.0 mg/dL [facility] Aspartate Amino Transferase 39(H) 5 - 37 U/L [facility] Alanine Aminotransferase 46(H) 0 - 40 U/L [facility] Total Protein 8.5(H) 6.5 - 8.0 g/dL [facility] Albumin Level 4.8 3.5 - 5.0 g/dL [facility] Alkaline Phosphatase 94 39 - 117 U/L [facility] 08/07/2025 4:31 PM EST 08/07/2025 4:36 PM EST us Generic External Data Provider LAB BLOOD ORDERAB LES Final Result [facility] [address] [place] [phone] * (ABNORMAL) POCT Rapid Covid-19 BinaxNOW (06/08/2025 2:03 PM EDT) [facility] Rapid COVID Ag Positive QC Media Lot # [id number] Lot# Expiration Date [id number] Swab 06/08/2025 2:03 PM EDT us Carleen Joseph MD POINT OF CARE TEST EN TER/EDIT ORDERABLES Final Result * POCT Rapid Influenza A HARRIS ID NOW (06/08/2025 2:02 PM EDT) [facility] Influenza A Negative Negative, Indeterminate [facility] QC Media Lot # [id number] [facility] Lot# Expiration Date [facility] Swab 06/08/2025 2:02 PM EDT Carleen Joseph MD POINT OF CARE TEST EN TER/EDIT ORDERABLES Final Result Performing Organization Address City/[facility]/ZIP Co de Phone Number [facility] [address] [place] [phone] * POCT Rapid Influenza B HARRIS ID NOW (06/08/2025 2:01 PM EDT) [facility] Influenza B Negative Negative, Indeterminate [facility] QC Media Lot # [id number] [facility] Lot# Expiration Date [facility] Swab 06/08/2025 2:01 PM EDT Carleen Joseph MD POINT OF CARE TEST EN TER/EDIT ORDERABLES Final Result Performing Organization Address [facility] de Phone Number [facility] [address] [place] [phone] * HEPATITIS C AB W/REFL TO HCV RNA, QN, PCR (03/18/2020 4:05 PM EDT) [facility] HEPATITIS C ANTIBODY NON-REACT CLAUDINE NON-REACT [email or web address] INDEX 0.01 <1.00 [facility] Comment: HCV antibody was non-reactive. There is no laboratory evidence of HCV infection. In most cases, no further action is required. However, if recent HCV exposure is suspected, a test for HCV RNA (test code 61106) is suggested. For additional information please refer to http://education.nWay/faq/FMP47s4 (This link is being provided for informational/ educational purposes only.) HEPATITIS C ANTIBODY NON-REACT CLAUDINE NON-REACT CLAUDINE [facility] INDEX 0.01 <1.00 [facility] Comment: HCV antibody was non-reactive. There is no laboratory evidence of HCV infection. In most cases, no further action is required. However, if recent HCV exposure is suspected, a test for HCV RNA (test code 31599) is suggested. For additional information please refer to http://organgir.am/faq/JZU59k7 (This link is being provided for informational/ educational purposes only.) HEPATITIS C ANTIBODY NON-REACT CLAUDINE NON-REACT CLAUDINE [facility] INDEX 0.01 <1.00 [facility] Comment: HCV antibody was non-reactive. There is no laboratory evidence of HCV infection. In most cases, no further action is required. However, if recent HCV exposure is suspected, a test for HCV RNA (test code 42751) is suggested. For additional information please refer to http://organgir.am/faq/ANK83s3 (This link is being provided for informational/ educational purposes only.) 03/18/2020 4:05 PM EDT us Salud Tovar MD HISTORICAL/NON ORDERABLE LABS Fi nal Result [facility] [address] * HIV 1/2 ANTIGEN/ANTIBODY,FOURTH GENERATION W/RFL (03/18/2020 4:05 PM EDT) HIV-1/2 ANTIGEN AND ANTIBODIES, 4TH GENERATION W/ REFLEX NON-REACT CLAUDINE NON-REACT CLAUDINE [facility] Comment: HIV-1 antigen and HIV-1/HIV-2 [...] purpose. For additional information please refer to http://Secret.nWay/faq/EDF658 (This link is being provided for informational/ educational purposes only.) The performance of this assay has not been clinically validated in patients less than 2 years old. HIV-1/2 ANTIGEN AND ANTIBODIES, 4TH GENERATION W/ REFLEX NON-REACT CLAUDINE NON-REACT CLAUDINE [email or web address] Comment: HIV-1 antigen and HIV-1/HIV-2 [...] purpose. For additional information please refer to http://Secret.nWay/faq/SYZ877 (This link is being provided for informational/ educational purposes only.) The performance of this assay has not been clinically validated in patients less than 2 years old. HIV-1/2 ANTIGEN AND ANTIBODIES, 4TH GENERATION W/ REFLEX NON-REACT CLAUDINE NON-REACT CLAUDINE [email or web address] Comment: HIV-1 antigen and HIV-1/HIV-2 [...] purpose. For additional information please refer to http://Secret.nWay/faq/YUC310 (This link is being provided for informational/ educational purposes only.) The performance of this assay has not been clinically validated in patients less than 2 years old. 03/18/2020 4:05 PM EDT us Salud Tovar MD LAB BLOOD ORDERABLES Final Resul t [facility] [address] from Last 3 Months or Most Recently Relevant to Health Maintenance Insurance [facility] C3 Care Teams Cook Pickled Meat Relationship Specialty Start Date End Date Salud Tovar MD [address] [place] [phone] PCP - General Family Medicine 08/30/18
--- OUTSIDE RECORDS SUMMARY | 2025-08-07 23:05 | XMS_ITS | Encounter Summary ---
Author Organization [employer] Address [address] [place] [address] Care Team Providers Care Chief Deputy Name Role Phone Salud Tovar MD Primary Care Provider [phone] Joann Camp RN Unavailable [phone] Elyse Holland Unavailable Encounter Details Date Type Department Care Team (Late st Contact Info) Description 02/21/2025 Orders Only [facility] [address] [place] [address] Provider, MD [place] Social History Tobacco Use [...] t he electric, gas, oil or water [employer] threatened to shut off services in your [...] documented as of this encounter Care Teams Chief Deputy Relationship Specialty Start Date End Date Salud Tovar MD [address] [place] [address] PCP - General Family Medicine 08/30/18 Joann Camp RN [address] [place] [phone] Registered Nurse Family Medicine 02/21/25 05/17/25 Elyse Holland 02/21/25 05/17/25 documented as of this encounter
--- OUTSIDE RECORDS SUMMARY | 2025-08-07 23:05 | XMS_ITS | Encounter Summary ---
Author Organization [employer] Address [address] [place] [address] [address], [place] [address] Care Team Providers Care Furnace Combustion Tester Name Role Phone Salud Tovar MD Primary Care Provider [phone] Joann Camp RN Unavailable [phone] Elyse Holland Unavailable Reason for Referral * Consultation (Urgent) - Closed Specialty Diagnoses / Procedures Referred By Todd cortez Referred To Contact Physical Therapy Diagnoses Acute pain of right shoulder Salud Tovar MD [address] [place] [address] Phone: tel: fax: [facility] [address] [place] [address] Phone: tel: fax: Referral ID Status Reason Start Date Expiration Date V isits Requested Visits Authorized [id number] Closed Specialty Services Required 03/01/2025 03/01/2026 1 1 Encounter Details Date Type Department Care Team (Late st Contact Info) Description 03/01/2025 Orders Only [facility] MEDICINE [address] [place] [address] Salud Tovar MD [address] [place] [phone] Acute pain of right shoulder (Primary Dx) [...] documented as of this encounter Care Teams Furnace Combustion Tester Relationship Specialty Start Date End Date Salud Tovar MD [address] [place] [address] PCP - General Family Medicine 08/30/18 Joann Camp RN [address] [place] [address] Registered Nurse Family Medicine 02/21/25 05/17/25 Elyse Holland 02/21/25 05/17/25 documented as of this encounter
--- OUTSIDE RECORDS SUMMARY | 2025-08-07 23:05 | XMS_ITS | Encounter Summary ---
Author Organization [employer] Address [address] [facility] 7 [place] [address] Care Team Providers Care Canine Service Teacher Name Role Phone Salud Tovar MD Primary Care Provider [phone] Reason for Visit * Reason Comments Recovery Supports Encounter Details Date Type Department Care Team ([facility] st Contact Info) Description 08/07/2025 Patient Outreach [facility] MEDICINE [address] [place] [address] Collin Moore Recovery Supports Social History Tobacco Use Types Packs/Day Years [...] as of this encounter Progress Notes * Collin Moore - 08/07/2025 2:35 PM EST I met with Syed today. Setting: by phone Recovery Wellness Goals worked on: Physical Health/Mental Health, Social Stability, and Housing Stability Action taken/next steps: Offered person centered recovery support and Referred to detox/another level of care Additional comments: Collin Moore documented in this encounter Plan of Treatment Not on file documented as of this encounter Visit Diagnoses Not on filedocumented in this encounter Additional Health Concerns Assessment Noted Time PHQ-9 Depression Total Score: 7 04/02/20 25 3:05 PM EDT documented as of this encounter Care Teams Canine Service Teacher Relationship Specialty Start Date End Date Salud Tovar MD [address] [place] [address] PCP - General Family Medicine 08/30/18 documented as of this encounter
--- OUTSIDE RECORDS SUMMARY | 2025-08-07 23:05 | XMS_ITS | Clinical Summary ---
Author Organization [facility] Address [address] [place] [address] Phone Care Team Providers Care Plc Engineer Name Role Phone Salud Tovar MD Primary Care Provider [phone] Allergies No known active allergies Medications No known medications Active Problems No known active problems Social History Tobacco Use Types Packs/Day Years [...] Orientation Straight 03/03/2025 10 :33 AM EDT Last Filed Vital Signs Vital [...] 08/02/2022 Depression Screening 08/30/2024 COVID-19 Vaccine ( - 2024- season) 2025 Influenza Vaccine (#1) 2025 5, 07/24/2013, 07/11/2012 RSV Immunization Adult Patients (1 - 1-dose 75+ series) 2072 Hepatitis [...] on patient's age to complete this topic Insurance MEDICAID - [place] Care Teams Plc Engineer Relationship Specialty Start Date End Date Salud Tovar MD [address] [place] [phone] PCP - General 03/27/24
--- OUTSIDE RECORDS SUMMARY | 2025-08-07 23:05 | XMS_ITS | Encounter Summary ---
Author Organization [employer] Address [address] [place] [address] [place], [place] [address] Care Team Providers Care Marine Mechanic Name Role Phone Salud Tovar MD Primary Care Provider [phone] Joann Camp RN Unavailable [phone] Elyse Holland Unavailable Reason for Referral * Consultation (Urgent) - Closed Specialty Diagnoses / Procedures Referred By Todd cortez Referred To Contact Orthopaedic Surgery Diagnoses Sprain of right acromioclavicular ligament, initial encounter Salud Tovar MD [address] [place] [address] Phone: tel: fax: [facility] [address] [place] [address] [address] [place] [address] Phone: tel:[phone] Referral ID Status Reason Start Date Expiration Date V isits Requested Visits Authorized [id number] Closed Specialty Services Required 03/01/2025 03/01/2026 1 1 Encounter Details Date Type Department Care Team (Latest Contact Info) Description 03/01/2025 Orders Only [facility] MEDICINE [address] [place], [place] [phone] Salud Tovar MD [address] [place], [place] [phone] Sprain of right acromioclavicular ligament, initial encounter [...] documented as of this encounter Care Teams Marine Mechanic Relationship Specialty Start Date End Date Salud Tovar MD [address] [place] [address] PCP - General Family Medicine 08/30/18 Joann Camp RN [address] [place] [address] Registered Nurse Family Medicine 02/21/25 05/17/25 Elyse Holland 02/21/25 05/17/25 documented as of this encounter
--- OUTSIDE RECORDS SUMMARY | 2025-08-07 23:05 | XMS_ITS | Encounter Summary ---
Author Organization [employer] Address [address] [place] [address] 7 [place] [address] Care Team Providers Care Regulator Pin Inserter Name Role Phone Salud Tovar MD Primary Care Provider [phone] Encounter Details Date Type Department Care Team (Late st Contact Info) Description 08/07/2025 Orders Only GENERIC EXTERNAL DATA DEPARTMENT Provider, Generic External Data Social History Tobacco Use Types Packs/Day Years [...] Comments ETHANOL Routine 08/07/2025 4:31 PM EST CBC WITH AUTO DIFFERENTIAL Routine 08/07/2025 4:31 PM EST MAGNESIUM Routine 08/07/2025 4:31 PM EST COMPREHENSIVE METABOLIC PANEL Routine 08/07/2025 4:31 PM EST documented in this encounter Results * Ethanol (08/07/2025 4:31 PM EST) ETHANOL (MG/DL) IN SER/PLAS <10 mg/dL [facility] Comment:Serum/plasma ethanol results are to be used formedical/treatment purposes only. 08/07/2025 4:31 PM EST 08/07/2025 4:36 PM EST us Generic External Data Provider LAB BLOOD ORDERAB LES Final Result [facility] [address] [place] [phone] * Magnesium (08/07/2025 4:31 PM EST) Magnesium 1.9 1.6 - 2.6 mg/dL [facility] 08/07/2025 4:31 PM EST 08/07/2025 4:36 PM EST us Generic External Data Provider LAB BLOOD ORDERAB LES Final Result [facility] [address] [place] [address] [phone] * (ABNORMAL) Comprehensive Metabolic Panel (08/07/2025 4:31 PM EST) Sodium 135 135 - 145 mmol/L [facility] Potassium 3.6 3.3 - 5.1 mmol/L [facility] Chloride 97 96 - 108 mmol/L [facility] Carbon Dioxide 29 22 - 29 mmol/L [facility] Anion Gap 13 12 - 20 [facility] Urea Nitrogen (BUN) 13 9 - 16 mg/dL [facility] Creatinine, Serum 0.96 0.5 - 1.4 mg/dL [facility] Creatinine Clr Calc Pharmacy 142.8 [facility] Comment:eGFR (calculated fro m the MDRD study equation) and eCrCl(calculated from the Cockcroft-Gault equation) are based ondifferent parameters and may not yield comparable results.If eCrCl result is absurd, please check patient'sheight/weight. Estimated Glomerular Filt Rate >60 [facility] Comment:Chronic Kidney Disea se: Estimated GFR < 60 mL/min/1.74e8Muaaxb Kidney Disease: Estimated GFR < 15 mL/min/1.73m2 Glucose 138(H) 60 - 115 mg/dL [facility] Calcium 9.7 8.4 - 10.2 mg/dL [facility] Bilirubin, Total 1.6(H) 0.0 - 1.0 mg/dL [facility] Aspartate Amino Transferase 39(H) 5 - 37 U/L [facility] Alanine Aminotransferase 46(H) 0 - 40 U/L [facility] Total Protein 8.5(H) 6.5 - 8.0 g/dL [facility] Albumin Level 4.8 3.5 - 5.0 g/dL [facility] Alkaline Phosphatase 94 39 - 117 U/L [facility] 08/07/2025 4:31 PM EST 08/07/2025 4:36 PM EST us Generic External Data Provider LAB BLOOD ORDERAB LES Final Result [facility] [address] [place] [address] [phone] * (ABNORMAL) CBC auto differential (08/07/2025 4:31 PM EST) White Blood Count 9.6 4.8 - 10.8 X10*3/uL [facility] Red Blood Count 5.57 4.60 - 5.80 X10*6/uL [facility] Hemoglobin 15.8 14.0 - 18.0 g/dl [facility] Hematocrit 43.5 42.0 - 52.0 % [facility] Mean Corpuscular Volume 78.1(L) 80.0 - 98.0 fL [facility] Mean Corpuscular Hemoglobin 28.4 27.0 - 33.0 pg [facility] Mean Corpuscular HGB Conc 36.3(H) 31.0 - 36.0 g/dl [facility] Red Cell Distribution Width 13.5 11.0 - 16.0 % [facility] Platelet Count 282 160 - 400 X10*3/uL [facility] Mean Platelet Volume 9.5 9.4 - 12.4 fL [facility] Neutrophils Percent Auto 68.9 45 - 73 % [facility] Imm Gran Pct Auto 0.2 0.0 - 0.4 % [facility] Lymphocytes Percent Auto 19.1(L) 20 - 40 % [facility] Monocytes Percent Auto 9.5 2 - 11 % [facility] Eosinophils Percent Auto 1.3 0 - 4 % [facility] Basophils Percent Auto 1.0 0 - 2 % [facility] NRBC Pct Auto 0.0 0.0 - 0.2 /100WBC [facility] Neutrophils Absolute Auto 6.6 2.0 - 8.3 x10*3/uL [facility] Imm Gran Abs Auto 0.02 0.00 - 0.03 X10*3/uL [facility] Lymphocytes Absolute Auto 1.8 1.2 - 4.9 X10*3/uL [facility] Monocytes Absolute Auto 0.9 0.1 - 1.2 X10*3/uL [facility] Eosinophils Absolute Auto 0.1 0.0 - 0.4 X10*3/uL [facility] Basophils Absolute Auto 0.1 0.0 - 0.2 X10*3/uL [facility] NRBC Abs Auto 0.000 0.0 - 0.012 X10*3/uL [facility] 08/07/2025 4:31 PM EST 08/07/2025 4:36 PM EST us Generic External Data Provider LAB BLOOD ORDERAB LES Final Result Performing Organization Address City/State/[facility] Co de Phone Number [facility] [address] [place] [phone] [phone] documented in this encounter Visit Diagnoses Not on filedocumented in this encounter Additional Health Concerns Assessment Noted Time PHQ-9 Depression Total Score: 7 04/02/20 25 3:05 PM EDT documented as of this encounter Care Teams Regulator Pin Inserter Relationship Specialty Start Date End Date Salud Tovar MD [address] [place] [address] PCP - General Family Medicine 08/30/18 documented as of this encounter
== END 2025-08-07 21:33 | disposition home or self-care (01) ==
PROVIDERS: Physician Assistant; Emergency Provider Student in an Organized Health Care Education/Training Program; PCP Family Medicine
DX: F51.01 Primary insomnia (principal); F10.90 Alcohol use, unspecified, uncomplicated; Y90.0 Blood alcohol level of less than 20 mg/100 ml
CPT/HCPCS: 36415; 80053; 80307; 83735; 85025; 99283; 99284